=== PATIENT | female | born 1955 | race Caucasian/White ===

== ENCOUNTER 2017-10-03 01:51 | Emergency (ER) | payer MEDICARE, SELFPAY ==
[2017-10-03 01:52] VITALS: BP 173/94; PULSE 85; RESP 17; TEMP 36.9; O2SAT 96; BMI 35.5
[2017-10-03] MEDS: Ondansetron 4 MG/2 ML Vial IV (02:27)
[2017-10-03] MEDS: 0.9% Normal Saline 1,000 ML 1000 ML IV (02:27)
[2017-10-03] MEDS: Dicyclomine 10 MG Capsule 20 MG PO (02:32)
[2017-10-03] MEDS: Loperamide 2 MG Capsule 4 MG PO (02:32)
--- NOTE | 2017-10-03 05:35 | ED.DCSUM_ITS ---
- ER Visit Summary Date of Service: 10/03/17 Chief Complaint: Generalized abdominal pain with nausea, vomiting diarrhea. History of Present Illness: The patient is a 62 F patient states abdominal pain started at approximately 1530. At approximately 1600 she had loose watery stool without blood or mucus. She states she had 4 loose stools prior to presentation. At approximately 1800 she had first episode of vomiting and has vomited 6 times prior to presentation. There was no blood or coffee grounds noted. There are no ill contacts. She has not been antibiotics recently. She has no history of any significant bowel problems. She denies fever, chills night sweats. Denies weight gain or weight loss. She denies any visual, ocular or auditory symptoms. She has no cardiovascular or respiratory symptoms. She denies any symptoms. She denies rash or any skin lesions. She denies myalgias arthralgias. She does combine of generalized weakness. Denies headache, paresthesia, anesthesia or motor weakness. She denies any swelling or discomfort of her extremities. Physical Examination: Patient blood pressure is 173/94. She appears pale. HEENT exam is remarkable dry mucosa otherwise negative. Please read written notes. Heart is regular without murmur, gallop or rub. S1 and S2 are normal. Lungs are clear to auscultation with good movement of air bilaterally. Abdomen is soft nontender with no palpable semester no bruit. There is no hepatosplenomegaly. There is no CVA tenderness. Lower extremity exam reveals no asymmetry, discoloration or leg vein distention. Neurologic exam is nonfocal. Test Results: Since symptoms started hours before presentation lab tests were not obtained. Emergency Department Course and Treatment: IV was established and she received 2 L of normal saline wide open. She initially was treated with Zofran. She reported no improvement. Reglan was ordered and I was informed that the pharmacy has no Reglan. She was treated with promethazine. First attempt at p.o. challenge resulted in nausea and vomiting of the Imodium and Bentyl tablets she was given. She has since passed p.o. challenge and was reassessed at 0530. She states she feels better the nausea has resolved. Treatment Plan: Appropriate home-going instructions and symptomatic care/ treatment. Disposition: Discharged to home with daughter Impression: Abdominal pain with nausea, vomiting diarrhea Mild dehydration This note was generated with [employer] dictation software. It may contain incorrect words, spelling, and punctuation that were not noted in review of the chart prior to signing ED Disposition - Plan for ED Patient: Disposition: Home or Assisted Living Chief Complaint: Nausea/Vomiting/Diarrhea Instructions: ED Vomiting Diarrhea Nonspecific Ad Referrals: Nisa Jolley MD [Primary Care Provider] - As Needed
[2017-10-03 05:43] VITALS: BP 169/69; PULSE 86; RESP 16; O2SAT 94
== END 2017-10-03 05:44 | disposition home or self-care (01) ==
PROVIDERS: Emergency Provider Emergency Medicine; Family Provider Internal Medicine; PCP Internal Medicine
DX: R10.9 Unspecified abdominal pain (principal); R11.2 Nausea with vomiting, unspecified; R19.7 Diarrhea, unspecified; E86.0 Dehydration; R53.1 Weakness; K21.9 Gastro-esophageal reflux disease without esophagitis; J44.9 Chronic obstructive pulmonary disease, unspecified; F32.9 Major depressive disorder, single episode, unspecified
CPT/HCPCS: 96361; 96374; 96375; 99285; J7030; J7040; A4216; J2405

== ENCOUNTER → 2018-04-01 08:47 | Outpatient (CLI) | payer MEDICARE, SELFPAY | PROVIDERS: Family Provider Internal Medicine; PCP Internal Medicine; Visit Provider Orthopaedic Surgery | DX: M54.5 Low back pain (principal) | CPT/HCPCS: 72110 ==

== ENCOUNTER 2018-04-21 10:48 | Day surgery (SDC) | payer MEDICARE, SELFPAY ==
[2018-04-21 11:02] VITALS: BP 134/71; PULSE 85; RESP 18; TEMP 35.7; O2SAT 96; BMI 34.1
[2018-04-21] MEDS: MethylPREDNISolone Acetate 80 MG/ML Vial (12:04)
[2018-04-21] MEDS: Bupivacaine 0.5% PF 10 ML VIAL (12:04)
--- NOTE | 2018-04-21 12:05 | RAD_ITS ---
STUDY: BILATERAL SACROILIAC JOINT INJECTION. REASON FOR EXAM: Female, 62 years old. Chronic low back pain. FLUOROSCOPY TIME (if supplied): (0:17) minutes/seconds. 2 cone down intraoperative views were obtained. TECHNIQUE: The pain management physician performed lateral sacroiliac joint injections. COMPARISON: None. FINDINGS: The needle is seen in the right and left sacroiliac joints. RAD/S-I Jts 3 or More Views IMPRESSION: Imaging provided for bilateral sacroiliac joint injections. Electronically Signed: Porfirio Gurrola MD at 10:28 EDT Tel [phone], Service support ,
[2018-04-21 12:19] VITALS: BP 111/74; BP 134/71; PULSE 74; RESP 16; TEMP 36.5; O2SAT 96
[2018-04-21 12:25] VITALS: BP 117/79; BP 134/71; PULSE 67; RESP 16; O2SAT 96
[2018-04-21 12:42] VITALS: BP 124/81; BP 134/71; PULSE 71; RESP 16; TEMP 36.4; O2SAT 97
[2018-04-21 13:04] VITALS: BP 134/71
--- NOTE | 2018-04-21 15:23 | PCM.OPRPT ---
Problem List (1) Sacrococcygeal disorders, not elsewhere classified Status: Chronic (2) Bilateral sacroiliitis Status: Chronic Report of Operation Date of Procedure: 04/21/18 Pre-Operative Diagnosis: Sacroiliitis, sacroiliac joint dysfunction Post-Operative Diagnosis: Sacroiliitis, sacroiliac joint dysfunction Surgery/Procedure Performed:: Bilateral sacroiliac joint steroid injection under fluoroscopic guidance Description of Surgical Findings:: PROCEDURE: Bilateral sacroiliac joint steroid injection under fluoroscopic guidance PREOPERATIVE DIAGNOSIS: Sacroiliitis, sacroiliac joint dysfunction POSTOPERATIVE DIAGNOSIS: Sacroiliitis, sacroiliac joint dysfunction ANESTHESIA: MAC COMPLICATIONS: None BLOOD LOSS: Minimal PROCEDURE IN DETAIL: History and physical today was reviewed. Risks and benefits of the procedure were explained. The patient understood, agreed to our procedure, and informed consent was obtained. IV inserted per routine protocol. The patient was taken to the operating room, placed in a prone position with a pillow positioned underneath the abdomen. The lower back and tailbone area was prepped and draped in a sterile fashion using iodine ?3 under fluoroscopy guidance on the AP as well as oblique view bilateral sacroiliac joints are visualized the skin and subcutaneous tissue and size approximately 5 cc of 1% lidocaine using a 25-gauge regular needle under direct visualization with fluoroscopy starting on the left SI ending on the right SI using a 22-gauge 3 and half inch spinal needle the needle passed through the skin the tip of the needle's maneuver and directed towards the inferior one third of the posterior SI joint once the tip of the needle was at the vicinity of the joint after negative aspiration for blood or CSF a total of 1 cc of contrast was injected in divided doses between both levels to confirm correct placement of the needle as well as cephalocaudad spread confirmation was obtained on AP as well as oblique view after repeated negative aspiration a total of 8 cc of preservative-free 0.25% Marcaine with 80 mg of Depo-Medrol were injected in divided doses between both levels. The needles were then removed intact. The patient experienced no signs or symptoms intrathecal, intravascular injection. The patient experienced no paraesthesia. The procedure was completed without any apparent difficult, any complication. The patient appeared to tolerate well. ASSESSMENT AND PLAN: This is a 62-year-old female with sacroiliitis SI joint dysfunction status post bilateral sacroiliac joint steroid injection under fluoroscopic guidance. The patient will continue her current medications. The patient will follow in approximately 2 weeks for possible repeat of the procedure if indicated.
== END 2018-04-21 13:05 | disposition home or self-care (01) ==
LOC: SDC 10:48 → AC 10:50
PROVIDERS: Family Provider Internal Medicine; PCP Internal Medicine; Visit Provider Anesthesiology Pain Medicine
PROC: 3E0U3BZ Introduction of Anesthetic Agent into Joints, Percutaneous Approach (ICD-10-PCS; CPT 64451; principal; 2018-04-21 12:00)
DX: M46.1 Sacroiliitis, not elsewhere classified (principal)
CPT/HCPCS: 62323; 64483; 72202; J7120; J3490

== ENCOUNTER 2018-06-05 14:00 | Outpatient (RCR) | payer MEDICARE, SELFPAY ==
--- NOTE | 2018-05-09 07:53 | HP.PTEVAL ---
Patient's Visit Information NAMAN WAHL is a 62 year old F referred to Physical Therapy by Thiago Youssef MD with a diagnosis of LUMBAR DDD,SI DYSFUNCTION. Date of Evaluation: 05/09/18 Physical Therapist: Nasir Moses PT, - Visit Plan Frequency: 2x /Week Duration: 4 Weeks Plan: Aquatic PT lumbar ROM ,strength ,postural ex's LE strengthening/flexablity - Subjective Subjective: This 62 y/o female presents physica therapy lumbar pain and SI dysfunction for about one year. Patient was at PT for land which made symptoms worse. Pateint seen pain management had injections made symptoms better 2weeks ago. Location symmtrical SI and had radicular syptoms in legs.Symptoms worse with walking ,sitting ,standing Symptoms better with recliner ,injections.Denies parathesia/tingling. Bowel/bladder -. Patient sleeping okay at night. Patient symptoms affect QOL and ADL'S and housework tasks. 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 SOCAIL: disablity. VOCTATION: - Pain Bilateral Back Pain Intensity (Out of 10): 0 Pain Intensity Range: 10 - Objective POSTURE: mild foward posture,knee valgus. GAIT: mild foward posture reciprocal pattern. NEURO: denies parathesia/ingling,reflexes L3-4,L4-5,L5--S1 1/3. PALAPTION: tender SI. ALIGN: symmtrical. MMT: quads/hams/hip 4-/5,ankle 4/5. LUMBAR ROM: flexion min/mod loss,extension mod loss ,side glides min/mod loss. FLEXABLITY: hams min loss - Special Tests L/S Slump test left side: Negative L/S Slump test right side: Negative L/S Left Straight Leg Raise: Negative L/S Right Straight Leg Raise: Negative Lumbar Standing: Flexion - Mechanical Response: No effect Lumbar Standing: Flexion - Symptoms During Testing: Increases Lumbar Standing: Flexion - Symptoms After Testing: No worse Lumbar Standing: Extension - Mechanical Response: No effect Lumbar Standing: Extension - Symptoms After Testing: No worse Lumbar Standing: Right Side Glides - Mechanical Response: No effect Lumbar Standing: Right Side [place] - Symptoms During Testing: No effect Lumbar Standing: Right Side [place] - Symptoms After Testing: No effect Lumbar Standing: Left Side [place] - Mechanical Response: No effect Lumbar Standing: Left Side [place] - Symptoms During Testing: No effect Lumbar Standing: Left Side [place] - Symptoms After Testing: No effect - Goals Goal 1:: Independant with Aquatic PT Goal Time Frame: 4-6 Weeks Goal 2:: Independant with posture for ADL'S Goal Time Frame: 4-6 Weeks Goal 3:: Patient decrease lumbar and SI pain by 50% r greater to improve function. Goal Time Frame: 4-6 Weeks Goal 4:: This to improve back owsetry by 5-7 points to improve QOL Goal Time Frame: 4-6 Weeks Goal 5:: Patient to improve ablity to perform ADL'S and housework task with min limiations Goal Time Frame: 4-6 Weeks - Rehabilitation Potential Physical Therapy Diagnosis: This patient has SI joint and lumbar pain which impairs ADL'S and light housework tasks with strength,pain and functionas well as comorbities thus benifit from skilled PT Rehabilitation Potential: Good - Anticipated Interventions Thank you for the opportunity to evaluate your patient. For Medicare and Medicare HMO plans, please review the plan of care and approve it. It will need to be FAXED BACK to us at [phone] for Medicare purposes. Please let me know if there are questions or concerns regarding this plan of care. Physician Signature: Date:
--- NOTE | 2018-05-09 08:00 | HP.PTEVAL_ITS ---
Patient's Visit Information NAMAN WAHL is a 62 year old F referred to Physical Therapy by Thiago Youssef MD with a diagnosis of LUMBAR DDD,SI DYSFUNCTION. Date of Evaluation: 05/09/18 Physical Therapist: Nasir Moses PT, - Visit Plan Frequency: 2x /Week Duration: 4 Weeks Plan: Aquatic PT lumbar ROM ,strength ,postural ex's LE strengthening/flexablity - Subjective Subjective: This 62 y/o female presents physica therapy lumbar pain and SI dysfunction for about one year. Patient was at PT for land which made symptoms worse. Pateint seen pain management had injections made symptoms better 2weeks ago. Location symmtrical SI and had radicular syptoms in legs.Symptoms worse with walking ,sitting ,standing Symptoms better with recliner ,injections.Denies parathesia/tingling. Bowel/bladder -. Patient sleeping okay at night. Patient symptoms affect QOL and ADL'S and housework tasks. 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 SOCAIL: disablity. VOCTATION: - Pain Bilateral Back Pain Intensity (Out of 10): 0 Pain Intensity Range: 10 - Objective POSTURE: mild foward posture,knee valgus. GAIT: mild foward posture reciprocal pattern. NEURO: denies parathesia/ingling,reflexes L3-4,L4-5,L5--S1 1/3. PALAPTION: tender SI. ALIGN: symmtrical. MMT: quads/hams/hip 4-/5,ankle 4/5. LUMBAR ROM: flexion min/mod loss,extension mod loss ,side glides min/mod loss. FLEXABLITY: hams min loss - Special Tests L/S Slump test left side: Negative L/S Slump test right side: Negative L/S Left Straight Leg Raise: Negative L/S Right Straight Leg Raise: Negative Lumbar Standing: Flexion - Mechanical Response: No effect Lumbar Standing: Flexion - Symptoms During Testing: Increases Lumbar Standing: Flexion - Symptoms After Testing: No worse Lumbar Standing: Extension - Mechanical Response: No effect Lumbar Standing: Extension - Symptoms After Testing: No worse Lumbar Standing: Right Side Glides - Mechanical Response: No effect Lumbar Standing: Right Side [place] - Symptoms During Testing: No effect Lumbar Standing: Right Side [place] - Symptoms After Testing: No effect Lumbar Standing: Left Side [place] - Mechanical Response: No effect Lumbar Standing: Left Side [place] - Symptoms During Testing: No effect Lumbar Standing: Left Side [place] - Symptoms After Testing: No effect - Goals Goal 1:: Independant with Aquatic PT Goal Time Frame: 4-6 Weeks Goal 2:: Independant with posture for ADL'S Goal Time Frame: 4-6 Weeks Goal 3:: Patient decrease lumbar and SI pain by 50% r greater to improve function. Goal Time Frame: 4-6 Weeks Goal 4:: This to improve back owsetry by 5-7 points to improve QOL Goal Time Frame: 4-6 Weeks Goal 5:: Patient to improve ablity to perform ADL'S and housework task with min limiations Goal Time Frame: 4-6 Weeks - Rehabilitation Potential Physical Therapy Diagnosis: This patient has SI joint and lumbar pain which impairs ADL'S and light housework tasks with strength,pain and functionas well as comorbities thus benifit from skilled PT Rehabilitation Potential: Good - Anticipated Interventions Patient/Client Instruction: Educate patient on: Condition For the Purpose of:: To decrease pain, To increase ROM, To improve muscle performance and motor function, To improve ability to perform ADL's, To increase tolerance to activity/condition/position, To improve performance and independence with ADL's, To improve ability of physical actions for home/community/work/leisure, To improve gait and locomotor functions, To increase flexibility/ROM, To assume or resume ADL's, To reduce risk of recurrence, To improve ability to perform tasks related to life management Therapeutic Exercise to Include: Strength training, Body mechanics, Postural training, Flexibilty training, Dynamic Lumbar Stabilization Comment: BLE For the Purpose of:: To decrease pain, To increase ROM, To improve muscle performance and motor function, To improve ability to perform ADL's, To increase tolerance to activity/condition/position, To improve ability of physical actions for home/community/work/leisure, To improve health of tissue, To decrease soft tissue restriction, To increase flexibility/ROM, To improve endurance, To reduce risk of recurrence, To improve ability to perform tasks related to life management Thank you for the opportunity to evaluate your patient. For Medicare and Medicare HMO plans, please review the plan of care and approve it. It will need to be FAXED BACK to us at [phone] for Medicare purposes. Please let me know if there are questions or concerns regarding this plan of care. Physician Signature: Date:
== END 2018-06-05 19:00 | disposition home or self-care (01) ==
LOC: PT 14:00
PROVIDERS: Family Provider Internal Medicine; PCP Internal Medicine; Referring Provider Anesthesiology Pain Medicine; Visit Provider Anesthesiology Pain Medicine
DX: M51.36 Other intervertebral disc degeneration, lumbar region (principal); M53.3 Sacrococcygeal disorders, not elsewhere classified
CPT/HCPCS: 97113; 97162

== ENCOUNTER 2018-09-08 07:41 | Day surgery (SDC) | payer MEDICARE, SELFPAY ==
[2018-09-08 07:59] VITALS: BP 117/73; PULSE 84; RESP 18; TEMP 36.4; O2SAT 94; BMI 35.0
[2018-09-08] MEDS: Bupivacaine 0.25% 30 ML Vial (09:03)
[2018-09-08] MEDS: MethylPREDNISolone Acetate 80 MG/ML Vial (09:03)
--- NOTE | 2018-09-08 09:10 | RAD_ITS ---
STUDY: X-RAY - SACRUM/COCCYX REASON FOR EXAM: Female, 63 years old. Bilateral SI joint injections. TECHNIQUE: 2 intraoperative view(s) of the sacrum and coccyx were obtained. COMPARISON: None. FINDINGS: Imaging provided for bilateral sacroiliac joint injections. Contrast is seen at that level. RAD/Sacrum-Coccyx min 2 Views IMPRESSION: Imaging provided for bilateral sacroiliac joint injection. Electronically Signed: Porfirio Gurrola MD at 9:20 EST , Service support ,
[2018-09-08 09:15] VITALS: BP 111/68; BP 117/73; PULSE 75; RESP 16; TEMP 36.5; O2SAT 95
[2018-09-08 09:20] VITALS: BP 110/69; BP 117/73; PULSE 74; RESP 16; O2SAT 96
[2018-09-08 09:25] VITALS: BP 105/68; BP 117/73; PULSE 75; RESP 16; O2SAT 97
[2018-09-08 09:28] VITALS: BP 111/71; BP 117/73; PULSE 76; RESP 16; TEMP 36.4; O2SAT 96
[2018-09-08 09:35] VITALS: BP 117/73
--- NOTE | 2018-09-08 11:53 | OP.PCM_ITS ---
Problem List (1) Bilateral sacroiliitis Status: Chronic (2) Sacrococcygeal disorders, not elsewhere classified Status: Chronic Report of Operation Date of Procedure: 09/08/18 Pre-Operative Diagnosis: Sacroiliitis, SI joint dysfunction Post-Operative Diagnosis: Sacroiliitis, SI joint dysfunction Surgery/Procedure Performed:: Bilateral sacroiliac joint steroid injection under fluoroscopic guidance Description of Surgical Findings:: PROCEDURE: Bilateral sacroiliac joint steroid injection under fluoroscopic guidance PREOPERATIVE DIAGNOSIS: Sacroiliitis, sacroiliac joint dysfunction POSTOPERATIVE DIAGNOSIS: Sacroiliitis, sacroiliac joint dysfunction ANESTHESIA: MAC COMPLICATIONS: None BLOOD LOSS: Minimal PROCEDURE IN DETAIL: History and physical today was reviewed. Risks and benefits of the procedure were explained. The patient understood, agreed to our procedure, and informed consent was obtained. IV inserted per routine protocol. The patient was taken to the operating room, placed in a prone position with a pillow positioned underneath the abdomen. The lower back and tailbone area was prepped and draped in a sterile fashion using iodine ?3 under fluoroscopy guidance on the AP as well as oblique view bilateral sacroiliac joints are visualized the skin and subcutaneous tissue and size approximately 5 cc of 1% lidocaine using a 25-gauge regular needle under direct visualization with fluoroscopy starting on the left SI ending on the right SI using a 22-gauge 3 and half inch spinal needle the needle passed through the sk in the tip of the needle's maneuver and directed towards the inferior one third of the posterior SI joint once the tip of the needle was at the vicinity of the joint after negative aspiration for blood or CSF a total of 1 cc of contrast was injected in divided doses between both levels to confirm correct placement of the needle as well as cephalocaudad spread confirmation was obtained on AP as well as oblique view after repeated negative aspiration a total of 8 cc of preservative-free 0.25% Marcaine with 80 mg of Depo-Medrol were injected in divided doses between both levels. The needles were then removed intact. The patient experienced no signs or symptoms intrathecal, intravascular injection. The patient experienced no paraesthesia. The procedure was completed without any apparent difficult, any complication. The patient appeared to tolerate well. ASSESSMENT AND PLAN: This is a 63-year-old female with sacroiliitis SI joint dysfunction status post bilateral sacroiliac joint steroid injection under fluoroscopic guidance. The patient will continue her current medications. The patient will follow in approximately 2 weeks for reevaluation
== END 2018-09-08 09:46 | disposition home or self-care (01) ==
LOC: SDC 07:42 → AC 07:43
PROVIDERS: Family Provider Internal Medicine; PCP Internal Medicine; Referring Provider Anesthesiology Pain Medicine; Visit Provider Anesthesiology Pain Medicine
PROC: 3E0U3BZ Introduction of Anesthetic Agent into Joints, Percutaneous Approach (ICD-10-PCS; CPT 64451; principal; 2018-09-08 09:05)
DX: M46.1 Sacroiliitis, not elsewhere classified (principal); M79.7 Fibromyalgia; M51.36 Other intervertebral disc degeneration, lumbar region; M43.16 Spondylolisthesis, lumbar region; M54.17 Radiculopathy, lumbosacral region; M54.5 Low back pain; M53.3 Sacrococcygeal disorders, not elsewhere classified; M54.16 Radiculopathy, lumbar region; M46.96 Unspecified inflammatory spondylopathy, lumbar region; Z79.891 Long term (current) use of opiate analgesic; J45.909 Unspecified asthma, uncomplicated
CPT/HCPCS: 01992; 27096; 64483; 72220; J7120

== ENCOUNTER 2019-04-20 09:27 | Day surgery (SDC) | payer MEDICARE, SELFPAY ==
[2019-04-20 10:13] VITALS: BP 138/73; PULSE 79; RESP 14; TEMP 36.6; O2SAT 97; BMI 34.2
[2019-04-20] MEDS: Lactated Ringers 1,000 ML 100 ML IV (10:41)
--- NOTE | 2019-04-20 11:00 | RAD_ITS ---
STUDY: X-RAY - SACROILIAC JOINTS REASON FOR EXAM: Female, 63 years old. Right SI joint injection. Pain. TECHNIQUE: A single intraoperative view(s) of the sacroiliac joints were obtained. COMPARISON: None. FINDINGS: Image demonstrates a needle in the right sacroiliac joint. There is contrast within the joint space. Please refer to the procedure report for further details. RAD/Fluoro Guided Needle Placement IMPRESSION: Right SI joint injection in the OR. Electronically Signed: Nehemiah Nathan DO at 18:14 EDT Tel [phone], Service support ,
--- NOTE | 2019-04-20 11:00 | RAD_ITS ---
STUDY: X-RAY - SACROILIAC JOINTS REASON FOR EXAM: Female, 63 years old. Left SI joint injection. Pain. TECHNIQUE: A single intraoperative view(s) of the sacroiliac joints were obtained. COMPARISON: None. FINDINGS: The image demonstrates a needle in the lower left sacroiliac joint. Contrast is seen within the joint space. Please refer to the operative report for further details. RAD/Fluoro Guided Needle Placement IMPRESSION: Injection of left sacroiliac joint the OR. Electronically Signed: Nehemiah Nathan DO at 18:13 EDT Tel [phone], Service support ,
[2019-04-20] MEDS: MethylPREDNISolone Acetate 80 MG/ML Vial (11:16)
[2019-04-20] MEDS: Bupivacaine 0.25% 30 ML Vial (11:16)
[2019-04-20 11:22] VITALS: BP 113/71; BP 138/73; PULSE 72; RESP 14; TEMP 36.9; O2SAT 97
[2019-04-20 11:25] VITALS: BP 116/81; BP 138/73; PULSE 71; RESP 16; O2SAT 98
[2019-04-20 11:30] VITALS: BP 122/64; BP 138/73; PULSE 69; RESP 16; O2SAT 97
[2019-04-20 11:51] VITALS: BP 133/81; BP 138/73; PULSE 70; RESP 16; TEMP 36.7; O2SAT 98
[2019-04-20 12:12] VITALS: BP 138/73
--- NOTE | 2019-04-20 13:17 | OP.PCM_ITS ---
Problem List (1) Bilateral sacroiliitis Status: Chronic (2) Sacrococcygeal disorders, not elsewhere classified Status: Chronic Report of Operation Date of Procedure: 04/20/19 Description of Surgical Findings:: PROCEDURE: Bilateral sacroiliac joint steroid injection under fluoroscopic guidance PREOPERATIVE DIAGNOSIS: Sacroiliitis, sacroiliac joint dysfunction POSTOPERATIVE DIAGNOSIS: Sacroiliitis, sacroiliac joint dysfunction ANESTHESIA: MAC COMPLICATIONS: None BLOOD LOSS: Minimal PROCEDURE IN DETAIL: History and physical today was reviewed. Risks and benefits of the procedure were explained. The patient understood, agreed to our procedure, and informed consent was obtained. IV inserted per routine protocol. The patient was taken to the operating room, placed in a prone position with a pillow positioned underneath the abdomen. The lower back and tailbone area was prepped and draped in a sterile fashion using iodine ?3 under fluoroscopy guidance on the AP as well as oblique view bilateral sacroiliac joints are visualized the skin and subcutaneous tissue and size approximately 5 cc of 1% lidocaine using a 25-gauge regular needle under direct visualization with fluoroscopy starting on the left SI ending on the right SI using a 22-gauge 3 and half inch spinal needle the needle passed through the skin the tip of the needle's maneuver and directed towards the inferior one third of the posterior SI joint once the tip of the needle was at the vicinity of the joint after negative aspiration for blood or CSF a total of 1 cc of contrast was injected in divided doses between both levels to confirm correct placement of the needle as well as cephalocaudad spread confirmation was obtained on AP as well as oblique view after repeated negative aspiration a total of 8 cc of preservative-free 0.25% Marcaine with 80 mg of Depo-Medrol were injected in divided doses between both levels. The needles were then removed intact. The patient experienced no signs or symptoms intrathecal, intravascular inject ion. The patient experienced no paraesthesia. The procedure was completed without any apparent difficult, any complication. The patient appeared to tolerate well. ASSESSMENT AND PLAN: This is a 63-year-old female with sacroiliitis SI joint dysfunction status post bilateral sacroiliac joint steroid injection under fluoroscopic guidance. The patient will continue her current medications. The patient will follow in approximately 2 weeks for reevaluation
== END 2019-04-20 12:29 | disposition home or self-care (01) ==
LOC: SDC 09:28 → AC 10:04
PROVIDERS: Family Provider Internal Medicine; PCP Internal Medicine; Referring Provider Anesthesiology Pain Medicine; Visit Provider Anesthesiology Pain Medicine
PROC: 3E0U3BZ Introduction of Anesthetic Agent into Joints, Percutaneous Approach (ICD-10-PCS; CPT 64451; principal; 2019-04-20 10:55)
DX: M46.1 Sacroiliitis, not elsewhere classified (principal); M48.061 Spinal stenosis, lumbar region without neurogenic claudication; M51.36 Other intervertebral disc degeneration, lumbar region; M43.16 Spondylolisthesis, lumbar region; M51.17 Intervertebral disc disorders with radiculopathy, lumbosacral region; M46.96 Unspecified inflammatory spondylopathy, lumbar region; M19.90 Unspecified osteoarthritis, unspecified site; M79.7 Fibromyalgia; J45.909 Unspecified asthma, uncomplicated; G47.30 Sleep apnea, unspecified; G25.81 Restless legs syndrome; K44.9 Diaphragmatic hernia without obstruction or gangrene; K21.9 Gastro-esophageal reflux disease without esophagitis; F41.9 Anxiety disorder, unspecified; F32.9 Major depressive disorder, single episode, unspecified; Z86.2 Personal history of diseases of the blood and blood-forming organs and certain disorders involving the immune mechanism; Z78.0 Asymptomatic menopausal state; Z79.891 Long term (current) use of opiate analgesic; Z79.899 Other long term (current) drug therapy
CPT/HCPCS: 27096; 76000; 77002; J7120

== ENCOUNTER 2019-07-06 14:00 | Outpatient (RCR) | payer MEDICARE, SELFPAY ==
--- NOTE | 2019-06-08 15:50 | HP.PTEVAL_ITS ---
Patient's Visit Information NAMAN WAHL is a 63 year old F referred to Physical Therapy by Thiago Youssef MD with a diagnosis of LUMBAR DDD,SI DYSFUNCTION. Date of Evaluation: 06/08/19 Physical Therapist: Nasir Moses PT, Cert MDT, OCS - Visit Plan Frequency: 2x /Week Duration: 5WEEKS Plan: PT INTERVENTIONS AQUATIC PT FOR LUMBAR ROM,DLS,POSTURAL EX'S,LE STRENGTHENING/FLEXABLITY - Subjective Findings: This 63 y/o female presnets to pysical therapy with lumbar and SI pain. Patient has lumbar pain for many years. Patient symptoms decsribed as ache symmtrical lumbar radiaties to lateral hips anterior thighs -knees Aggravating factors 10 mins ,walking < 10mins does use walker for extended distances,bending,lifting. Alleviating factors sitting,resting. Patientdenies parathesia/tingling. Bowel/bladder-. Coughing/sneezing -. pain has restless legs affects sleeping. Patient seen pain management has epidural injections ,most recent SI bilateral injections. No recent diagnostics. Patient pain affects ability to perform ADLS' thus requires,assist with bath per spouse ,. Patient Aide 3xday /week 3 hrs /day for cleaning. Patient has comorbities bilateral TSR and TKR's,fibromayalgia,pshyosocial -anxiety/depression. Patient condtion affects QOL and function. SOCAIL: . VOCATION: disablity - Pain Bilateral Back Pain Intensity (Out of 10): 2 Pain Intensity Range: 10 Bilateral Lower Extremity Pain Intensity (Out of 10): 2 Pain Intensity Range: 10 - Objective POSTURE: mild posture ,bilateral knee valgus. GAIT: reciprocal pattern antalgic gait,knee valgus. NEURO: intact L3-4,L4-5,L5-S1 1/3. PALAPTION: tender SI. AROM:right 0-105 ~ supine knee flexion, left 0-120 ~supine knee flexion. MMT: quads/hams 4-/5,hip flexion 3+/5, hip abd 3+/5,ankle 4/5. LUMBAR ROM: flexion mod loss ,extension mod/sever loss,side glides mod loss - Special Tests L/S Slump test left side: Negative L/S Slump test right side: Negative L/S Left Straight Leg Raise: Negative L/S Right Straight Leg Raise: Negative - Goals Goal 1:: Patient to be independant with HEP Goal Time Frame: 4-6 Weeks Goal 2:: Independant with posture for ADL'S Goal Time Frame: 4-6 Weeks Goal 3:: Patient to decrease lumbar pain by 50% or > to improve QOL. Goal Time Frame: 4-6 Weeks Goal 4:: Patient increase lumbar ROM for function of recovery Goal Time Frame: 4-6 Weeks Goal 5:: Pateint increase strength BLE by 1/2 grade to improve funnction. Goal Time Frame: 4-6 Weeks Goal 6:: Patient to improve back owestry score by 5 points or> to improve QOL. Goal Time Frame: 4-6 Weeks - Rehabilitation Potential Physical Therapy Diagnosis: This 63y/o female presents to physical therapy with lumbar pain/SI pain with decrease ROM for function,decrease LE strength ,impairs gait and requires assistance for ADL's Rehabilitation Potential: Good - Anticipated Interventions Patient/Client Instruction: Educate patient on: Condition, Plan of Care For the Purpose of:: To decrease pain, To increase ROM, To improve muscle performance and motor function, To improve ability to perform ADL's, To increase tolerance to activity/condition/position, To improve performance and independence with ADL's, To improve ability of physical actions for home/community/work/leisure, To improve health of tissue, To decrease soft tissue restriction, To increase flexibility/ROM, To improve ability to perform tasks related to life management Therapeutic Exercise to Include: Strength training, Postural training, Flexibi lty training, In an aquatic setting For the Purpose of:: To decrease pain, To increase ROM, To improve muscle performance and motor function, To improve ability to perform ADL's, To increase tolerance to activity/condition/position, To improve ability of physical actions for home/community/work/leisure, To improve health of tissue, To decrease soft tissue restriction, To increase flexibility/ROM, To reduce risk of recurrence Thank you for the opportunity to evaluate your patient. For Medicare and Medicare HMO plans, please review the plan of care and approve it. It will need to be FAXED BACK to us at [phone] for Medicare purposes. For Medicare only, by signing this I certify the plan of care. Please let me know if there are questions or concerns regarding this plan of care. Physician Signature: Date:
--- NOTE | 2019-09-25 13:31 | HP.PT.NRP ---
HP - Discharge Summary (1) - Patient Information NAMAN WAHL was seen in my office for initial evaluation on 06/08/19. The following Plan of Care was established for this patient: Initial Frequency: 2x /Week Initial Duration: 5WEEKS - Anticipated Interventions Patient/Client Instruction: Educate patient on: Condition, Plan of Care For the Purpose of:: To decrease pain, To increase ROM, To improve muscle performance and motor function, To improve ability to perform ADL's, To increase tolerance to activity/condition/position, To improve performance and independence with ADL's, To improve ability of physical actions for home/community/work/leisure, To improve health of tissue, To decrease soft tissue restriction, To increase flexibility/ROM, To improve ability to perform tasks related to life management Therapeutic Exercise to Include: Strength training, Postural training, Flexibilty training, In an aquatic setting For the Purpose of:: To decrease pain, To increase ROM, To improve muscle performance and motor function, To improve ability to perform ADL's, To increase tolerance to activity/condition/position, To improve ability of physical actions for home/community/work/leisure, To improve health of tissue, To decrease soft tissue restriction, To increase flexibility/ROM, To reduce risk of recurrence This patient was last seen in our office 07/06/19. Pertinent comments regarding their Physical therapy will appear below: Patient seen for PT for Lumbar pain with tx focusing on Aquatic Therapy for DLS,abd/back,postural ex's ,LE flexablity and strengrhening. At this point I will be discontinuing this patient from physical therapy. I would be happy to see this patient again in the future if found appropriate by the physician. Thank you! Nasir Moses, PT, Cert MDT, OCS
== END 2019-07-06 19:00 | disposition home or self-care (01) ==
LOC: PT 14:00
PROVIDERS: Family Provider Internal Medicine; PCP Internal Medicine; Referring Provider Anesthesiology Pain Medicine; Visit Provider Anesthesiology Pain Medicine
DX: M51.36 Other intervertebral disc degeneration, lumbar region (principal); M53.3 Sacrococcygeal disorders, not elsewhere classified
CPT/HCPCS: 97113; 97162

== ENCOUNTER 2019-09-18 13:16 | Emergency (ER) | payer MEDICARE, MEDICAID, SELFPAY ==
[2019-09-18 13:18] VITALS: BP 151/90; PULSE 87; RESP 18; TEMP 36.8; O2SAT 98; BMI 35.2
--- NOTE | 2019-09-18 13:50 | ED.DCSUM_ITS ---
History of Present Illness Chief Complaint: Abd Pain Informant: Patient Narrative: Patient presents with right upper quadrant abdominal pain, she was known to have gallstones however a recent MRCP showed choledocholithiasis. She is sent to the emergency department. She continues to have pain but she has no fever chills cough or congestion. She denies any chest pain, the pain does not radiate to her back. Past Medical History - Allergies and Home Meds Allergies/Adverse Reactions: Allergies No Known Allergies Allergy (Verified 09/18/19 13:18) Primary Care Physician: Nisa Jolley MD [Primary Care Provider] - Past Medical History: - - Fibromyalgia otherwise noncontributory Smoking Status: Never smoker Review of Systems All systems negative except as indicated General: Denies: Fever Cardiovascular: Denies: Chest pain Respiratory: Denies: Dyspnea, Cough Gastrointestinal: Reports: Abdominal pain, Nausea. Denies: Vomiting, Diarrhea Genitourinary: Denies: Dysuria Musculoskeletal: Denies: Myalgias Skin: Denies: Wounds Neurological: Denies: Weakness Psych: Denies: Depression Endocrine: Denies: Polyuria Hematologic: Denies: Easy bruising Allergy: Denies: Swelling of the tongue Physical Exam Vital Signs/Narrative: Vital Signs Temp Pulse Resp BP Pulse Ox 09/18/19 13:18 98.2 F 87 18 151/90 H 98 General: Well nourished, Well developed Head: Normocephalic Eyes: Perrl, EOMI ENT: Moist mucous membranes Neck: Supple Cardiovascular: Regular rate, Regular rhythm Respiratory: No distress, CTA bilaterally Abdomen: Soft, - - Right upper quadrant abdominal pain. She has a negative Ji's. Otherwise her abdomen is nontender in the lower quadrants without any guarding or rebound Back: Nontender, Normal Inspection. Negative for: CVA tenderness Skin: Normal color Neurological: Alert, Normal Strength, Normal Sensation Psychological: Normal affect Diagnostic/Tx/Re-eval - Medical Decision Making Patient has normal LFTs, however I see a MRCP which does show choledocholithiasis, unfortunately I do not have anyone at this facility to do an MRCP at this time, per patient request I will transfer to [facility]. ED Disposition - Plan for ED Patient: Disposition: [facility] Diagnosis: Choledocholithiasis Referrals: Nisa Jolley MD [Primary Care Provider] -
[2019-09-18 13:53] LABS: Absolute Lymphocyte Count 1.46 X10^3/uL (0.83-4.51); Absolute Neutrophil Count 3.6 X10^3/uL (2.0-7.7); Basophil# 0.04 X10^3/uL; Basophil% 0.7 % (0-1); Eosinophil# 0.12 X10^3/uL; Eosinophils% 2.1 % (0-5); Hematocrit 36.8 % (37-47); Hemoglobin 12.1 g/dL (12.0-15.0); Lymphocyte # 1.46 X10^3/ul (4.0); Mean Corp Hgb Conc 32.9 g/dL (32-36); Mean Corpuscular Hgb 27.4 pg (27.0-32.0); Mean Corpuscular Volume 83.3 fL (81-99); Mean Platelet Vol. 10.6 fl (6.2-12.0); Monocyte# 0.61 X10^3/uL; Monocyte% 10.4 % (0-10); NRBC Flagged by Analyzer 0 % (0-5); Neutrophil # 3.61 X10^3/uL (2.7-7.7); Neutrophil % 61.6 % (47-70); Platelet Count 217 K/mm3 (150-450); RBC Distribution Width SD 42.7 fl (35.1-43.9); Red Blood Count 4.42 M/mm3 (4.2-5.4); White Blood Count 5.9 K/mm3 (4.4-11.0)
[2019-09-18] MEDS: Ondansetron 4 MG/2 ML Vial IV (13:58)
[2019-09-18] MEDS: 0.9% Normal Saline 1,000 ML 125 ML IV (13:58)
[2019-09-18] MEDS: Morphine 4 MG/ML Syringe IV (13:59)
[2019-09-18 14:01] VITALS: BP 128/84; PULSE 82; RESP 17; O2SAT 97
[2019-09-18 14:07] LABS: AST(SGOT) 23 U/L (15-37); Alanine Aminotransfer ALT/SGPT 39 U/L (13-56); Albumin, Serum 3.8 g/dL (3.2-5.0); Alkaline Phosphatase 140 U/L (45-117); Anion Gap 4 (5-15); BUN 15 mg/dL (7-18); BUN/Creat Ratio 18.1 RATIO (10-20); Bilirubin, Direct 0.13 mg/dL (0.00-0.30); Calcium,Total 9.1 mg/dL (8.5-10.1); Chloride 109 mmol/L (98-107); Creatinine, Serum 0.83 mg/dL (0.55-1.02); EST Glomerular Filtration Rate 74 mL/min (>60); Est Glom Filt Rate - Afr Amer 90 mL/min (>60); Estimated Creatinine Clearance 55.58 ml/min; Globulin 3.7 g/dL (2.2-4.2); Glucose 90 mg/dL (74-106); Lipase 107 U/L (73-393); Potassium 3.7 mmol/L (3.5-5.1); Protein, Total 7.5 g/dL (6.4-8.2); Sodium Level 141 mmol/L (136-145)
[2019-09-18 15:41] VITALS: BP 164/87; PULSE 71; RESP 16; O2SAT 96
[2019-09-18 17:06] VITALS: BP 159/83; PULSE 70; RESP 18; O2SAT 98
== END 2019-09-18 17:18 | disposition short-term general hospital (02) ==
PROVIDERS: Emergency Provider Emergency Medicine; PCP Internal Medicine
DX: K80.70 Calculus of gallbladder and bile duct without cholecystitis without obstruction (principal); M79.7 Fibromyalgia
CPT/HCPCS: 80048; 80076; 83690; 85025; 96361; 96374; 96375; 99284; J7030; A4216; J2405

== ENCOUNTER 2020-07-11 10:39 | Day surgery (SDC) | payer MEDICARE, MEDICAID, SELFPAY ==
[2020-07-11 11:01] VITALS: BP 134/88; PULSE 85; RESP 18; TEMP 35.8; O2SAT 98; BMI 37.8
[2020-07-11] MEDS: Lactated Ringers 1,000 ML 100 ML IV (11:16)
--- NOTE | 2020-07-11 12:00 | RAD_ITS ---
PROCEDURE: Sacroiliac joint injection. DATE OF EXAMINATION: 07/11/2020. INDICATION: Female, 65 years old. Low back pain. FLUOROSCOPY TIME (if supplied): (17 seconds) minutes/seconds. 2 images were obtained. Intraoperative imaging provided for left sacroiliac joint injection. RAD/Fluoro Guided Needle Placement IMPRESSION: Intraoperative imaging provided for left sacroiliac joint injection. Electronically Signed: Porfirio Gurrola, at 15:43 EST , Service support ,
--- NOTE | 2020-07-11 12:00 | RAD_ITS ---
PROCEDURE: Right sacroiliac joint injection. DATE OF EXAMINATION: 07/11/2020. INDICATION: Female, 65 years old. Low back pain. FLUOROSCOPY TIME (if supplied): (17 seconds) minutes/seconds. One image was obtained. Intraoperative imaging provided for right sacroiliac joint injection. RAD/Fluoro Guided Needle Placement IMPRESSION: Intraoperative imaging provided for right sacroiliac joint injection. Electronically Signed: Porfirio Gurrola, at 15:40 EST , Service support ,
--- NOTE | 2020-07-11 12:10 | PCM.OPRPT ---
Report of Operation Date of Procedure: 07/11/20 Description of Surgical Findings:: PROCEDURE: Bilateral sacroiliac joint steroid injection under fluoroscopic guidance PREOPERATIVE DIAGNOSIS: Sacroiliitis, sacroiliac joint dysfunction POSTOPERATIVE DIAGNOSIS: Sacroiliitis, sacroiliac joint dysfunction ANESTHESIA: MAC COMPLICATIONS: None BLOOD LOSS: Minimal PROCEDURE IN DETAIL: History and physical today was reviewed. Risks and benefits of the procedure were explained. The patient understood, agreed to our procedure, and informed consent was obtained. IV inserted per routine protocol. The patient was taken to the operating room, placed in a prone position with a pillow positioned underneath the abdomen. The lower back and buttock area was prepped and draped in a sterile fashion using iodine ?3 under fluoroscopy guidance on the AP as well as oblique view bilateral sacroiliac joints are visualized the skin and subcutaneous tissue was anesthetized with approximately 5 cc of 1% lidocaine using a 25-gauge regular needle, under direct visualization with fluoroscopy starting on the left SI ending on the right SI using a 22-gauge 3 and half inch spinal needle the needle passed through the skin the tip of the needle's maneuver and directed towards the inferior one third of the posterior SI joint once the tip of the needle was at the vicinity of the joint after negative aspiration for blood or CSF a total of 2 cc of contrast was injected in divided doses between both levels to confirm correct placement of the needle as well as cephalocaudad spread, confirmation was obtained on AP as well as oblique view after repeated negative aspiration a total of 8 cc of preservative-free 0.25% Marcaine with 80 mg of Depo-Medrol were injected in divided doses between both levels. The needles were then removed intact.The patient experienced no signs or symptoms of intrathecal or intravascular injection. The patient experienced no paraesthesia. The procedure was completed without any apparent difficulty, any complication. The patient appeared to tolerate well. ASSESSMENT AND PLAN: This is a 65-year-old female with sacroiliitis SI joint dysfunction status post bilateral sacroiliac joint steroid injection under fluoroscopic guidance. The patient will continue her current medications. The patient will follow in approximately 2 weeks for reevaluation.
[2020-07-11] MEDS: MethylPREDNISolone Acetate 40 MG/ML Vial IM (12:17)
[2020-07-11] MEDS: Bupivacaine 0.25% 30 ML Vial (12:17)
[2020-07-11] MEDS: Lidocaine 1% (5 ml sdv) 5 ML Vial (12:17)
[2020-07-11 12:25] VITALS: BP 134/88; BP 190/92; PULSE 88; RESP 18; TEMP 36.9; O2SAT 92
[2020-07-11 12:30] VITALS: BP 134/88; BP 144/73; PULSE 82; RESP 18; O2SAT 93
[2020-07-11 12:35] VITALS: BP 134/88; BP 137/88; PULSE 82; RESP 18; O2SAT 92
[2020-07-11 12:40] VITALS: BP 121/59; BP 134/88; PULSE 79; PULSE 89; RESP 18; RESP 20; O2SAT 100
[2020-07-11] MEDS: Ipratropium/Albuterol Sulfate 3 ML AMPUL.NEB INHALATION (12:41)
[2020-07-11 13:20] VITALS: BP 134/88
== END 2020-07-11 13:21 | disposition home or self-care (01) ==
LOC: SDC 10:39 → AC 10:41
PROVIDERS: PCP Internal Medicine; Referring Provider Anesthesiology Pain Medicine; Visit Provider Anesthesiology Pain Medicine
PROC: 3E0U3GC Introduction of Other Therapeutic Substance into Joints, Percutaneous Approach (ICD-10-PCS; CPT 27096; principal; 2020-07-11 11:55)
DX: M46.1 Sacroiliitis, not elsewhere classified (principal); M53.3 Sacrococcygeal disorders, not elsewhere classified; M79.7 Fibromyalgia; J45.909 Unspecified asthma, uncomplicated; M51.36 Other intervertebral disc degeneration, lumbar region; M43.16 Spondylolisthesis, lumbar region; M54.17 Radiculopathy, lumbosacral region; M51.37 Other intervertebral disc degeneration, lumbosacral region; M54.5 Low back pain; M54.16 Radiculopathy, lumbar region; M46.96 Unspecified inflammatory spondylopathy, lumbar region; Z79.891 Long term (current) use of opiate analgesic
CPT/HCPCS: 64451; 76000; 77002; 94640; J7120

== ENCOUNTER 2020-12-30 20:31 | Emergency (ER) | payer MEDICARE, MEDICAID, SELFPAY ==
[2020-12-30 20:41] VITALS: BP 189/119; PULSE 94; RESP 16; TEMP 36.8; O2SAT 95; BMI 36.6
[2020-12-30 20:42] VITALS: BP 189/119; PULSE 94; RESP 16; TEMP 36.8; O2SAT 95
[2020-12-30 23:17] LABS: AST(SGOT) 36 U/L (15-37); Alanine Aminotransfer ALT/SGPT 37 U/L (13-56); Albumin, Serum 3.7 g/dL (3.2-5.0); Alkaline Phosphatase 107 U/L (45-117); Anion Gap 6 (5-15); BUN 15 mg/dL (7-18); BUN/Creat Ratio 19.5 RATIO (10-20); Calcium,Total 8.9 mg/dL (8.5-10.1); Chloride 109 mmol/L (98-107); Creatinine, Serum 0.77 mg/dL (0.55-1.02); EST Glomerular Filtration Rate 80 mL/min (>60); Est Glom Filt Rate - Afr Amer 97 mL/min (>60); Estimated Creatinine Clearance 59.15 ml/min; Globulin 3.8 g/dL (2.2-4.2); Glucose 107 mg/dL (74-106); Lipase 174 U/L (73-393); Protein, Total 7.5 g/dL (6.4-8.2); Sodium Level 139 mmol/L (136-145)
[2020-12-30] MEDS: 0.9% Normal Saline 1,000 ML 1000 ML IV (23:25)
[2020-12-30] MEDS: Ondansetron 4 MG/2 ML Vial IV (23:25)
[2020-12-30 23:30] LABS: Absolute Lymphocyte Count 0.64 X10^3/uL (0.83-4.51); Basophil# 0.02 X10^3/uL; Basophil% 0.2 % (0-1); Eosinophil# 0.18 X10^3/uL; Eosinophils% 2.1 % (0-5); Hematocrit 39.3 % (37-47); Hemoglobin 12.9 g/dL (12.0-15.0); Lymphocyte # 0.64 X10^3/ul (0.83-4.51); Lymphocyte % 7.6 % (19-41); Mean Corp Hgb Conc 32.8 g/dL (32-36); Mean Corpuscular Hgb 27.3 pg (27.0-32.0); Mean Corpuscular Volume 83.1 fL (81-99); Mean Platelet Vol. 10.7 fl (6.2-12.0); Monocyte# 0.53 X10^3/uL; Monocyte% 6.3 % (0-10); NRBC Flagged by Analyzer 0 % (0-5); Neutrophil # 6.96 X10^3/uL (2.7-7.7); Neutrophil % 83.1 % (47-70); Platelet Count 240 K/mm3 (150-450); RBC Distribution Width SD 42.7 fl (35.1-43.9); Red Blood Count 4.73 M/mm3 (4.2-5.4); White Blood Count 8.4 K/mm3 (4.4-11.0)
[2020-12-30 23:55] VITALS: BP 172/87; PULSE 81; RESP 18; O2SAT 98
[2020-12-30 23:57] LABS: Mucous, Urine 0 SEEN /hpf (<or=2+)
[2020-12-30 23:58] LABS: Color, Urine Yellow (Yellow); Glucose, Dipstick Normal (Normal); Ketone-Dipstick 5 mg/dl (Negative); Leukocyte Esterase-Dipstick 500 /ul (Negative); Nitrite-Dipstick Negative (Negative); Occult Blood-Urine 150 /ul (Negative); Protein-Dipstick 30 mg/dl (Negative); Specific Gravity, Urine 1.015 (1.002-1.030); Urine Bilirubin Dipstick Negative (Negative); Urine Clarity Cloudy (Clear); Urine Urobilinogen 4 mg/dl (Normal); Urine pH 6.5 (5.0 - 8.0)
[2020-12-31 00:04] LABS: Amorphous Sediment 2+; Bacteria 4+ /hpf (None Seen); Red Blood Cells-Urine 0-5 SEEN /hpf (0-5); Squamous Epithelial Cells - UA 0-5 SEEN /hpf (5-10); White Blood Cells 25-50 SEEN /hpf (0-5)
[2020-12-31] MEDS: Smz/Tmp Ds Tablet 1 TABLET PO (00:35)
--- NOTE | 2020-12-31 00:36 | EDS_ITS ---
HPI HPI - GI History of Present Illness Chief Complaint: Nausea/Vomiting/Diarrhea Informant: patient Abdominal Pain/Flank Pain Onset: Today Context: Sudden Onset Timing: Continuous Quality: Aching Location: Diffuse Worsened by: Nothing Relieved by: Nothing Nausea/Vomiting/Emesis GI Symptom: Positive for Nausea and Vomiting Onset: Today Quality: Negative for Coffee ground and Hematemesis Diarrhea/Melena/Hematochezia GI Symptom: Positive for Diarrhea; Negative for Melena and Hematochezia Stool Quality: Positive for Loose and Watery Associated Symptoms Associated Symptoms: Negative for Dysuria and Hematuria Narrative Narrative: Patient presents with nausea, vomiting, and diarrhea that began today. Patient states it began this morning. Patient also admits to some mild diffuse abdominal pain. Patient states she is vomiting up stomach contents. Patient denies any hematemesis or coffee-ground emesis. Patient states her diarrhea is loose and watery. Patient denies any melena or hematochezia. Patient describes her abdominal pain as diffuse and aching. Patient states it has been constant. Patient states nothing makes it better or worse. Patient denies any dysuria or hematuria. Patient admits to subjective chills but denies any fevers. [facility] Medical History (Updated 12/31/20 @ 00:[address] Brady Hernández, DO) Asthma Hyperlipemia Home Medications clonazepam 0.5 mg PO QHS 09/16/14 [History Last Taken 09/17/19] omeprazole 20 mg PO DAILY 09/16/14 [History Last Taken 07/11/20] perphenazine 8 mg PO QHS 09/16/14 [History Last Taken 09/17/19] pregabalin [Lyrica] 100 mg PO BID 09/16/14 [History Last Taken 09/18/19] Cholecalciferol (Vitamin D3) [Vitamin D3] 5,000 unit PO DAILY 09/18/19 [History Last Taken 09/17/19] sertraline 100 mg PO DAILY 09/18/19 [History Last Taken 09/17/19] cyclobenzaprine 10 mg PO QHS PRN 07/06/20 [History Last Taken Unknown] sulfamethoxazole-trimethoprim 1 tab PO BID #6 tablet 12/31/20 [Rx Last Taken U nknown] Allergy/AdvReac Type Severity Reaction Status Date / Time No Known Allergies Allergy Verified 12/30/20 20:43 Surgical History (Updated 12/31/20 @ 00:[address] 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 Social History Smoking Status: Never smoker ROS ROS ED Constitutional Constitutional ED: Reports chills and subjective; Denies fever(s) Eyes Eyes: Denies blurry vision or change in vision ENT ENT ED: Denies rhinorrhea or sore throat Cardiovascular Cardiovascular: Denies chest pain or palpitations Respiratory/Chest Respiratory/Chest: Denies cough or dyspnea Gastrointestinal Gastrointestinal: Reports abdominal pain, diarrhea, nausea and vomiting Genitourinary Genitourinary ED: Denies dysuria or hematuria Musculoskeletal Musculoskeletal: Denies back pain or neck pain Integumentary Denies abscess or rash Neurologic Neurologic: Reports headache(s); Denies weakness Allergic/Immunologic Allergic/Immunologic ED: Denies mouth swelling or urticaria EXAM Physical Exam Const Vital Signs: 12/30/20 20:41 12/30/20 20:42 12/30/20 23:55 Temperature 98.3 F 98.3 F Temperature Source Temporal Temporal Pulse Rate 94 94 81 Respiratory Rate 16 16 18 Blood Pressure 189/119 H 189/119 H 172/87 H Blood Pressure Mean 142 142 115 Pulse Ox 95 95 98 Oxygen Delivery Method Room Air Room Air Room Air Positive well nourished, well developed and obese General Appearance ED: well developed Nutritional Appearance: obese HEENT Reports moist mucous membranes Neck supple and no JVD Resp normal respiratory effort and clear to auscultation bilaterally Cardio regular rate and regular rhythm GI non-distended Auscultation: normoactive bowel sounds Palpation: soft and tender other (There is mild diffuse tenderness.); Negative for guarding or rebound tenderness present Neuro CN's II-XII intact bilaterally, moves all extremities and no sensory deficits noted Sensorium / Orientation: alert and oriented to person Psych mental status grossly normal MDM MDM MDM Narrative Medical decision making narrative: CBC was within normal limits. Comprehensive metabolic profile was essentially within normal limits. Urinalysis showed 500 leukocyte esterase with 25-50 white blood cells and 4+ bacteria. Patient was given her 1st dose of Bactrim here. Patient was given a prescription for Bactrim. Patient was instructed to start with a liquid diet. Patient was instructed to advance as tolerated. Patient was instructed to follow-up with her primary care physician in 5 to 7 days. Patient understood and was agreeable with the plan. All questions were answered. Lab Data Attestation: I reviewed the patient's lab results. Labs: Laboratory Results - last 24 hr 12/30/20 12/30/20 12/30/20 22:30 22:30 23:47 WBC 8.4 RBC 4.73 Hgb 12.9 Hct 39.3 MCV 83.1 MCH 27.3 MCHC 32.8 RDW Std Deviation 42.7 RDW Coeff of Dudley 14.0 Plt Count 240 MPV 10.7 Immature Gran % (Auto) 0.700 Neut % (Auto) 83.1 H Lymph % (Auto) 7.6 L [place] % (Auto) 6.3 Eos % (Auto) 2.1 Baso % (Auto) 0.2 Absolute Neuts (auto) 7.0 Absolute Lymphs (auto) 0.64 L Nucleated RBC % 0 Sodium 139 Potassium 4.0 Chloride 109 H Carbon Dioxide 24.0 Anion Gap 6 BUN 15 Creatinine 0.77 Estim Creat Clear Calc 59.15 Est GFR (MDRD) Af Amer 97 Est GFR (MDRD) Non-Af 80 BUN/Creatinine Ratio 19.5 Glucose 107 H Calcium 8.9 Total Bilirubin 0.60 AST 36 ALT 37 Alkaline Phosphatase 107 Total Protein 7.5 Albumin 3.7 Globulin 3.8 Albumin/Globulin Ratio 1.0 Lipase 174 Urine Color Yellow Urine Clarity Cloudy Urine pH 6.5 Ur Specific Gates 1.015 Urine Protein 30 H Urine Glucose (UA) Normal Urine Ketones 5 H Urine Occult Blood 150 H Urine Nitrite Negative Urine Bilirubin Negative Urine Urobilinogen 4 H Ur Leukocyte Esterase 500 H Urine RBC 0-5 SEEN Urine WBC 25-50 SEEN Ur Squamous Epith Cells 0-5 SEEN Amorphous Sediment 2+ Urine Bacteria 4+ Urine Mucus 0 SEEN Discharge Plan Triage Chief Complaint: Nausea/Vomiting/Diarrhea ED Provider: Brady Hernández Dx/Rx/DC Orders Clinical Impression: Urinary tract infection Instructions: ED Bladder Infection, Female (Adult) Prescriptions: New sulfamethoxazole-trimethoprim [sulfamethoxazole-trimethoprim] 1 TABLET tablet 1 tab PO BID Qty: 6 RF: 0 No Action clonazepam 0.5 MG tablet 0.5 mg PO QHS RF: 0 omeprazole 20 MG capsule 20 mg PO DAILY RF: 0 perphenazine 8 MG tablet 8 mg PO QHS RF: 0 pregabalin [Lyrica] 100 MG capsule 100 mg PO BID RF: 0 sertraline 100 MG tablet 100 mg PO DAILY RF: 0 Cholecalciferol (Vitamin D3) [Vitamin D3] 5,000 UNIT capsule 5,000 unit PO DAILY RF: 0 cyclobenzaprine 10 MG tablet 10 mg PO QHS PRN (Reason: Spasms) RF: 0 Primary Care Provider: Nisa Jolley Referrals: Nisa Jolley MD [Primary Care Provider] - 3-5 Days Disposition Disposition: Home, self care
--- NOTE | 2020-12-31 01:25 | ED.RN ---
ATTEMPTED TO CALL PT'S DAUGHTER AND BUT NO ANSWER. CALLED FOR PT 5 STAR CALLED FOR PT KAYLAE SUPPOSED TO ARRIVE AFTER 1.
== END 2020-12-31 03:00 | disposition home or self-care (01) ==
PROVIDERS: Emergency Provider Emergency Medicine; PCP Internal Medicine
DX: N39.0 Urinary tract infection, site not specified (principal); E66.9 Obesity, unspecified; Z96.653 Presence of artificial knee joint, bilateral; E78.5 Hyperlipidemia, unspecified; J45.909 Unspecified asthma, uncomplicated
CPT/HCPCS: 80053; 81001; 83690; 85025; 99284; J7030; A4216; J2405

== ENCOUNTER 2021-02-20 10:01 | Day surgery (SDC) | payer MEDICARE, MEDICAID, SELFPAY ==
[2021-02-20 11:26] VITALS: BP 119/67; PULSE 84; RESP 16; TEMP 36.6; O2SAT 94; BMI 37.3
[2021-02-20] MEDS: Lactated Ringers 1,000 ML 100 ML IV (11:34)
--- NOTE | 2021-02-20 12:28 | RAD_ITS ---
PROCEDURE: Fluoroscopy in the OR. DATE OF EXAMINATION: 02/20/2021. INDICATION: Female, 65 years old. Bilateral SI joint injection. FLUOROSCOPY TIME (if supplied): Not provided RADIATION DOSAGE (If Supplied By Facility): Not provided PROCEDURE/TECHNIQUE: Fluoroscopy was provided during the procedure. A single image was the liver interpretation. The study demonstrates a needle in the left SI joint. Contrast is seen within the joint space. Please refer to procedural details. RAD/Fluoro Guided Needle Placement IMPRESSION: Fluoroscopy provided during a bilateral SI joint injection. Electronically Signed: Nehemiah Nathan DO at 16:26 EDT Tel [phone], Service support ,
--- NOTE | 2021-02-20 12:28 | RAD_ITS ---
PROCEDURE: Fluoroscopy in the OR. DATE OF EXAMINATION: 02/20/2021. INDICATION: Female, 65 years old. Bilateral SI joint injection. FLUOROSCOPY TIME (if supplied): Not provided RADIATION DOSAGE (If Supplied By Facility): Not provided PROCEDURE/TECHNIQUE: Fluoroscopy was provided in the OR. The provided image demonstrates a needle and wire is thought to be the right SI joint with injection of contrast into the joint space. Please agree for to the procedural report for further details. RAD/Fluoro Guided Needle Placement IMPRESSION: Fluoroscopic guidance provided during the performance of an SI joint injection. Electronically Signed: Nehemiah Nathan DO at 16:16 EDT Tel [phone], Service support ,
[2021-02-20] MEDS: MethylPREDNISolone Acetate 80 MG/ML Vial (12:30)
[2021-02-20] MEDS: Bupivacaine 0.25% 30 ML Vial (12:31)
[2021-02-20] MEDS: Lidocaine 1% (5 ml sdv) 5 ML Vial (12:31)
[2021-02-20 12:40] VITALS: BP 110/65; BP 119/67; PULSE 84; RESP 18; TEMP 36.3; O2SAT 97
[2021-02-20 12:45] VITALS: BP 103/47; BP 119/67; PULSE 80; RESP 16; O2SAT 97
[2021-02-20 12:50] VITALS: BP 112/74; BP 119/67; PULSE 73; RESP 16; O2SAT 97
[2021-02-20 12:55] VITALS: BP 110/68; BP 119/67; PULSE 75; RESP 96; TEMP 36.2; O2SAT 96
[2021-02-20 13:14] VITALS: BP 119/67
--- NOTE | 2021-02-20 17:27 | PCM.OPRPT ---
Report of Operation Date of Procedure: 02/20/21 Description of Surgical Findings:: PROCEDURE: Bilateral sacroiliac joint steroid injection under fluoroscopic guidance PREOPERATIVE DIAGNOSIS: Sacroiliitis, sacroiliac joint dysfunction POSTOPERATIVE DIAGNOSIS: Sacroiliitis, sacroiliac joint dysfunction ANESTHESIA: MAC COMPLICATIONS: None BLOOD LOSS: Minimal PROCEDURE IN DETAIL: History and physical today was reviewed. Risks and benefits of the procedure were explained. The patient understood, agreed to our procedure, and informed consent was obtained. IV inserted per routine protocol. The patient was taken to the operating room, placed in a prone position with a pillow positioned underneath the abdomen. The lower back and buttock area was prepped and draped in a sterile fashion using iodine ?3 under fluoroscopy guidance on the AP as well as oblique view bilateral sacroiliac joints are visualized the skin and subcutaneous tissue was anesthetized with approximately 5 cc of 1% lidocaine using a 25-gauge regular needle, under direct visualization with fluoroscopy starting on the left SI ending on the right SI using a 22-gauge 3 and half inch spinal needle the needle passed through the skin the tip of the needle's maneuver and directed towards the inferior one third of the posterior SI joint once the tip of the needle was at the vicinity of the joint after negative aspiration for blood or CSF a total of 2 cc of contrast was injected in divided doses between both levels to confirm correct placement of the needle as well as cephalocaudad spread, confirmation was obtained on AP as well as oblique view after repeated negative aspiration a total of 8 cc of preservative-free 0.25% Marcaine with 80 mg of Depo-Medrol were injected in divided doses between both levels. The needles were then removed intact.The patient experienced no signs or symptoms of intrathecal or intravascular injection. The patient experienced no paraesthesia. The procedure was completed without any apparent difficulty, any complication. The patient appeared to tolerate well. ASSESSMENT AND PLAN: This is a 65-year-old female with sacroiliitis SI joint dysfunction status post bilateral sacroiliac joint steroid injection under fluoroscopic guidance. The patient will continue her current medications. The patient will follow in approximately 2 weeks for reevaluation.
== END 2021-02-20 13:17 | disposition home or self-care (01) ==
LOC: SDC 10:01 → AC 10:48
PROVIDERS: PCP Internal Medicine; Referring Provider Anesthesiology Pain Medicine; Visit Provider Anesthesiology Pain Medicine
PROC: 3E0U3BZ Introduction of Anesthetic Agent into Joints, Percutaneous Approach (ICD-10-PCS; CPT 64451; principal; 2021-02-20 11:45)
DX: M46.1 Sacroiliitis, not elsewhere classified (principal); M53.3 Sacrococcygeal disorders, not elsewhere classified; Z79.891 Long term (current) use of opiate analgesic; M51.36 Other intervertebral disc degeneration, lumbar region; M51.37 Other intervertebral disc degeneration, lumbosacral region; M54.17 Radiculopathy, lumbosacral region; M54.5 Low back pain; M54.16 Radiculopathy, lumbar region; M46.96 Unspecified inflammatory spondylopathy, lumbar region
CPT/HCPCS: 01992; 20552; 76000; 77002; J7120

== ENCOUNTER 2021-03-13 17:27 | Emergency (ER) | payer MEDICARE, MEDICAID, SELFPAY ==
[2021-03-13 17:29] VITALS: BP 166/111; PULSE 96; RESP 14; TEMP 37; O2SAT 97; BMI 36.3
--- NOTE | 2021-03-13 20:01 | EDS_ITS ---
HPI History of Present Illness Chief Complaint: Dental Detail of Chief Complaint: Right lower jaw dental pain. Informant: patient Onset/Context/Timing Onset: Days Context: Gradual Onset Timing: Continuous Current Severity: Mild Maximum Severity: Moderate Narrative Narrative: Two 5-year-old female complaining of right lower jaw dental pain since Saturday. Said mild swelling. No fever. No trouble swallowing. Her only medical problem is mental illness which she is on medications for fibromyalgia. She has a dental appointment tomorrow. Prior similar symptoms: Yes Recent Illness/Hospitalization: No PFSH PFS Medical History Asthma Fibromyalgia Hyperlipemia Home Medications clonazepam 0.5 mg PO QHS 09/16/14 [History Last Taken 09/17/19] omeprazole 20 mg PO DAILY 09/16/14 [History Last Taken 02/20/21 08:30] perphenazine 8 mg PO QHS 09/16/14 [History Last Taken 09/17/19] pregabalin [Lyrica] 100 mg PO BID 09/16/14 [History Last Taken 09/18/19] Cholecalciferol (Vitamin D3) [Vitamin D3] 5,000 unit PO DAILY 09/18/19 [History Last Taken 09/17/19] sertraline 100 mg PO DAILY 09/18/19 [History Last Taken 09/17/19] cyclobenzaprine 10 mg PO QHS PRN 07/06/20 [History Last Taken Unknown] penicillin V potassium 500 mg PO 4X/DAY #30 tab 03/13/21 [Rx Last Taken Unknown] Allergy/AdvReac Type Severity Reaction Status Date / Time No Known Allergies Allergy Verified 03/13/21 17:28 Surgical History 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 Social History Smoking Status: Never smoker ROS ROS ED ROS Narrative Denies recent illness. Review of Systems ROS Unobtainable: Denies due to encephalopathy Constitutional Constitutional ED: Denies fever(s) Eyes Eyes: Denies change in vision ENT ENT ED: Denies ear pain Cardiovascular Cardiovascular: Denies chest pain Respiratory/Chest Respiratory/Chest: Denies dyspnea Gastrointestinal Gastrointestinal: Denies abdominal pain, diarrhea, nausea or vomiting Genitourinary Genitourinary ED: Denies dysuria Musculoskeletal Musculoskeletal: Denies myalgias Integumentary Denies rash Neurologic Neurologic: Denies headache(s) Psychiatric Psychiatric: Denies depression Endocrine Endocrinology: Denies polyuria Hematologic/Lymphatic Hematologic/Lymphatic: Denies easy bruising Allergic/Immunologic Allergic/Immunologic ED: Denies urticaria EXAM Physical Exam Narrative Exam Narrative: 65-year-old female no acute distress. Vital signs stable afebrile. Mouth exam her right last tooth she is missing her molars at the premolar is mildly tender there is minimal gingival swelling. There is no obvious cavity. There is no trauma to the tooth. And there is no abscess. She has mild tenderness. The other dentition she has multiple missing teeth and several cavities. The floor of her mouth is not swollen. The posterior pharynx is normal. Her neck is nontender without lymphadenopathy or swelling. Her face has no significant swelling. Const Vital Signs: 03/13/21 17:29 Temperature 98.6 F Temperature Source Temporal Pulse Rate 96 Respiratory Rate 14 Blood Pressure 166/111 H Blood Pressure Mean 129 Pulse Ox 97 Oxygen Delivery Method Room Air Positive well nourished and well developed General Appearance ED: well developed and NAD HEENT Negative for trauma or tenderness Mouth ED: Yes lips normal and Yes tongue normal Mouth: lips normal and tongue normal Teeth and Gingiva: abnormal tooth and associated gingiva, caries, gingiva abnormal and poor dentition Throat: posterior oropharynx normal Eyes PERRL and EOMs intact bilaterally Neck no lymphadenopathy, supple and no JVD General: normal visual inspection; Negative for anterior neck swelling, tenderness or submandibular swelling Lymph Lymphatic: no lymphadenopathy noted; Negative for lymphadenopathy Chest Wall inspection of chest normal and palpation of chest normal Resp normal respiratory effort, no retractions and clear to auscultation bilaterally Cardio regular rate, regular rhythm, S1 normal heart sound, S2 normal heart sound and no murmurs GI normal to inspection, nondistended, normoactive bowel sounds, non-tender, non- distended and no masses Palpation: soft Extremity normal to inspection Neuro oriented x3 Sensorium / Orientation: alert, oriented to person, oriented to place and oriented to time Motor Exam: strength 5/5 throughout Psych mental status grossly normal Skin no rashes or lesions noted MDM MDM MDM Narrative Medical decision making narrative: Right lower jaw premolar tenderness minimal gum swelling no abscess. Should be given 1 [place] here. Tylenol Motrin at home for pain. She has a dental appointment tomorrow. She will be started on pen VK 500 4 times daily for 7 days. Discharge Plan Triage Chief Complaint: Dental ED Provider: Phani Ansari Dx/Rx/DC Orders Clinical Impression: Pain, dental Prescriptions: New penicillin V potassium 500 mg tablet 500 mg PO 4X/DAY Qty: 30 RF: 0 No Action clonazepam 0.5 MG tablet 0.5 mg PO QHS RF: 0 omeprazole 20 MG capsule 20 mg PO DAILY RF: 0 perphenazine 8 MG tablet 8 mg PO QHS RF: 0 pregabalin [Lyrica] 100 MG capsule 100 mg PO BID RF: 0 sertraline 100 MG tablet 100 mg PO DAILY RF: 0 Cholecalciferol (Vitamin D3) [Vitamin D3] 5,000 UNIT capsule 5,000 unit PO DAILY RF: 0 cyclobenzaprine 10 MG tablet 10 mg PO QHS PRN (Reason: Spasms) RF: 0 Primary Care Provider: Nisa Jolley Referrals: Nisa Jolley MD [Primary Care Provider] - As Needed Activity Restrictions/Additional Instructions: See your dentist tomorrow. Ice to try to decrease pain and swelling. Tylenol Motrin for pain. Penicillin 4 times a day for possible infection. Disposition Disposition: Home, Self Care
[2021-03-13] MEDS: Penicillin Vk 250 MG Tablet 500 MG PO (20:51)
[2021-03-13] MEDS: HYDROcodone Bitartrate/Apap 5/325 Tablet PO (20:51)
== END 2021-03-13 20:53 | disposition home or self-care (01) ==
LOC: ED 20:15
PROVIDERS: Emergency Provider Emergency Medicine; PCP Internal Medicine
DX: K08.89 Other specified disorders of teeth and supporting structures (principal); E78.5 Hyperlipidemia, unspecified; J45.909 Unspecified asthma, uncomplicated; Z96.653 Presence of artificial knee joint, bilateral; M79.7 Fibromyalgia
CPT/HCPCS: 99281

== ENCOUNTER 2021-11-20 07:41 | Day surgery (SDC) | payer MEDICARE, MEDICAID, SELFPAY ==
[2021-11-20] VITALS (7 sets, daily range): BP systolic 104–139; BP diastolic 55–81; PULSE 69–78; RESP 16; TEMP 36.3–36.7; O2SAT 96–98; BMI 35.9
[2021-11-20] MEDS: Lactated Ringers 1,000 ML 15 ML IV (07:55)
--- NOTE | 2021-11-20 09:30 | RAD_ITS ---
INDICATION: BILAT SI JOINT INJECTION -- LEFT EXAMINATION/TECHNIQUE: X-RAY - LEFT XR Hip Unilateral with Pelvis when performed; 1 View 4 VIEWS COMPARISON: None. FLUOROSCOPY DOSE: 2.82 mGy FLUOROSCOPY TIME: 9.7 seconds FINDINGS: 2 images were obtained intraoperatively. Images demonstrate needle placement overlying the sacroiliac joint followed by contrast injection.. No radiologist was present for the procedure, please refer to operative report for details. RAD/Fluoro Guided Needle Placement IMPRESSION: Please refer to operative report for details. Electronically Signed: Christos Velez MD at 12:30 EDT ,
--- NOTE | 2021-11-20 09:30 | RAD_ITS ---
INDICATION: BILAT SI JOINT INJECTION EXAMINATION/TECHNIQUE: X-RAY - XR Hip Unilateral with Pelvis when performed; 1 View COMPARISON: None. FLUOROSCOPY DOSE: 2.82 mGy FLUOROSCOPY TIME: 9.7 seconds FINDINGS: 2 images were obtained intraoperatively. Images demonstrate the needle placement overlying the sacroiliac joints bilaterally followed by contrast injection.. No radiologist was present for the procedure, please refer to operative report for details. RAD/Fluoro Guided Needle Placement IMPRESSION: Please refer to operative report for details. Electronically Signed: Christos Velez MD at 12:29 EDT ,
[2021-11-20] MEDS: MethylPREDNISolone Acetate 80 MG/ML Vial (09:34)
[2021-11-20] MEDS: Bupivacaine 0.25% 30 ML Vial (09:35)
[2021-11-20] MEDS: Lidocaine 1% (5 ml sdv) 5 ML Vial (09:35)
--- NOTE | 2021-11-20 12:10 | PCM.OPRPT ---
Report of Operation Date of Procedure: 11/20/21 Description of Surgical Findings:: Bilateral sacroiliac joint steroid injection under fluoroscopic guidance PREOPERATIVE DIAGNOSIS: Sacroiliitis, sacroiliac joint dysfunction POSTOPERATIVE DIAGNOSIS: Sacroiliitis, sacroiliac joint dysfunction ANESTHESIA: MAC COMPLICATIONS: None BLOOD LOSS: Minimal PROCEDURE IN DETAIL: History and physical today was reviewed. Risks and benefits of the procedure were explained. The patient understood, agreed to our procedure, and informed consent was obtained. IV inserted per routine protocol. The patient was taken to the operating room, placed in a prone position with a pillow positioned underneath the abdomen. The lower back and buttock area was prepped and draped in a sterile fashion using iodine ?3 under fluoroscopy guidance on the AP as well as oblique view bilateral sacroiliac joints are visualized the skin and subcutaneous tissue was anesthetized with approximately 5 cc of 1% lidocaine using a 25-gauge regular needle, under direct visualization with fluoroscopy starting on the left SI ending on the right SI using a 22-gauge 3 and half inch spinal needle the needle passed through the skin the tip of the needle's maneuver and directed towards the inferior one third of the posterior SI joint once the tip of the needle was at the vicinity of the joint after negative aspiration for blood or CSF a total of 2 cc of contrast was injected in divided doses between both levels to confirm correct placement of the needle as well as cephalocaudad spread, confirmation was obtained on AP as well as oblique view after repeated negative aspiration a total of 8 cc of preservative-free 0.25% Marcaine with 80 mg of Depo-Medrol were injected in divided doses between both levels. The needles were then removed intact.The patient experienced no signs or symptoms of intrathecal or intravascular injection. The patient experienced no paraesthesia. The procedure was completed without any apparent difficulty, any complication. The patient appeared to tolerate well. ASSESSMENT AND PLAN: This is a 66-year-old female with sacroiliitis SI joint dysfunction status post bilateral sacroiliac joint steroid injection under fluoroscopic guidance. The patient will continue her current medications. The patient will follow in approximately 2 weeks for reevaluation.
== END 2021-11-20 10:29 | disposition home or self-care (01) ==
LOC: SDC 07:43 → AC 07:43
PROVIDERS: PCP Internal Medicine; Visit Provider Anesthesiology Pain Medicine
PROC: 3E0U3BZ Introduction of Anesthetic Agent into Joints, Percutaneous Approach (ICD-10-PCS; CPT 64451; principal; 2021-11-20 09:25)
DX: M46.1 Sacroiliitis, not elsewhere classified (principal); M53.2X8 Spinal instabilities, sacral and sacrococcygeal region; M79.7 Fibromyalgia; M51.37 Other intervertebral disc degeneration, lumbosacral region; M54.50 Low back pain, unspecified; G89.29 Other chronic pain; Z79.891 Long term (current) use of opiate analgesic
CPT/HCPCS: 27096; 76000; 77002; J7120

== ENCOUNTER 2022-04-17 09:37 | Day surgery (SDC) | payer MEDICARE, MEDICAID, SELFPAY ==
--- NOTE | 2022-04-17 07:36 | HP.PCM_ITS ---
History and Physical Date of Admission: 04/17/22 HISTORY AND PHYSICAL ? Ewelina Roa 1955 ? ? REFERRING PHYSICIAN:? ?Jenifer Sauer MD ? CHIEF COMPLAINT:? ?left breast neoplasm ? HPI: The patient is a 66 year old female findings of papilloma by needle core biopsy. ? She is s/p left needle core breast biopsy via ultrasound on 03/15/2022. FINAL DIAGNOSIS A.? Left breast mass, 6:00, 1 cm from nipple, ribbon clip, ultrasound-guided core biopsy: -- Intraductal papilloma. She denies any problems with the biopsy site. She is here for discussion of further therapy. ? ? PAST MEDICAL HISTORY ?Allergic rhinitis? ?allergy injections; Dr. Edward Palomino ?Asthma? ?CRPS (complex regional pain syndrome)? ?bilateral? ?Depression? ?DJD (degenerative joint disease) of knee? ?bilateral ?DJD (degenerative joint disease) of knee? ?bilateral; Dr. Evangelista since 2013 ?Hiatal hernia? ?Hypercholesterolemia 02/09/2010 ?Menopause, postsurgical? ?CARLOS-BSO for fibroids ?Myalgia and myositis, unspecified? ?Obstructive sleep apnea01/12/2016 ?OSKAR (obstructive sleep apnea)? ?on CPAP ?Positive PPD? ?never treated; was done for work around 1984 ?Schizophrenia, paranoid type (HCC)? ?Type O blood, Rh negative? ?T&C when had blood transfusion September 2014 ?VITAMIN D DEFICIENCY NOS06/03/2007 ? ? PAST SURGICAL HISTORY ? DELIVERY ONLY 1981 ?, low cervical ?COLONOSCOPY FLX DX W/COLLJ SPEC WHEN PFRMD 04/28/2014 ?Colonoscopy ?ESOPHAGOGASTRODUODENOSCOPY TRANSORAL DIAGNOSTIC 04/28/2014 ?EGD ?PAST SURGICAL HISTORY OF age 5 ?eye? ?PAST SURGICAL HISTORY OF 09/2014 ?right TKR? ?PAST SURGICAL HISTORY OF ? ?left knee TKR ?PAST SURGICAL HISTORY OF 11/2015 ?right shoulder ?PAST SURGICAL HISTORY OF 05/23/16 ?left shoulder? ?SEPTOPLASTY/SUBMUCOUS RESECJ W/WO CARTILAGE GRF 1983 ?Septoplasty ?TOTAL ABDOMINAL HYSTERECT W/WO RMVL TUBE OVARY 1988 ?Hysterectomy, CARLOS ? ? Current Outpatient Medications ?omeprazole (PRILOSEC) 20 mg capsuleTake 1 capsule by mouth daily before breakfast. 1/2 hr before meal. ?albuterol (PROVENTIL) 2.5 mg /3 mL (0.083 %) nebulizer solutionInhale by nebulizer over 5-15 minutes four (4) times a day as needed.(J45.20) Mild intermittent asthma without complication ?ipratropium (ATROVENT) 0.02 % nebulizer solutionUse 2.5 mL via nebulizer four times daily as needed. As directed as needed.? (J45.20) Mild intermittent asthma without complication ?fluticasone (FLONASE) 50 mcg/actuation nasal sprayUse 2 Sprays in each nostril once daily as needed for cold/allergy symptoms. Rinse mouth after use. ?diclofenac (VOLTAREN) 1 % topical gelApply 2 g to affected area daily at bedtime. ?Cholecalciferol, Vitamin D3, 125 mcg (5,000 unit) capTake 1 capsule by mouth once daily. ?rosuvastatin (CRESTOR) 10 mg tabletTake 1 tablet by mouth daily at bedtime. ?pregabalin (LYRICA) 100 mg capsuleTake 1 capsule by mouth twice daily for 180 days. ?albuterol HFA (VENTOLIN HFA) 90 mcg/actuation inhalerInhale 2 Puffs as instructed every 4 hours as needed for wheezing/shortness of breath. ?perphenazine 8 mg tabletTake 1 tablet by mouth daily at bedtime. ([facility]) ?[place]-3 Fatty Acids 500 mg capTake by mouth once daily. ?clonazePAM (KLONOPIN) 0.5 mg tabletTake 1 tablet by mouth daily at bedtime. ([facility] gives RX) ?therapeutic multivitamin tabletTake 1 tablet by mouth once daily. ?sertraline (ZOLOFT) 50 mg tabletTake 1 tablet by mouth once daily. ? ? ALLERGIES: Seasonal Allergies ? PERSONAL HISTORY:? Tobacco Use ?Smoking status:Never ?Smokeless tobacco:Never Vaping Use ?Vaping Use:Never used Substance Use Topics ?Alcohol use:No ?Drug use:No ?? ? FAMILY HISTORY? ProblemRelationAge of Onset ?ThyroidMother? hypo ?StrokeMother? ?HeartFather? ?Prostate CancerFather? ?DiabetesSister? ?DiabetesMaternal Grandmother? ?other (Systelmic lupus erythematosis)Daughter? ?other (sjogrens)Daughter? ?Colon CancerPaternal Aunt? ?other (Other)Other? Aunts and uncles on father's side with stroke history ? ? REVIEW OF SYSTEMS: ? ? ?General:? ?The patient denies fatigue, denies weight loss, denies weight gain, denies feeling hot, and denies feelings of cold. ? ? ?Eyes:? The patient denies glaucoma, denies eye injury/surgery, wears glasses or contacts. ? ? ?Ear/Nose/Throat:? The patient notes allergies, denies hayfever, denies ear infections, and denies bloody noses. ? ? ?Cardiovascular:? The patient denies chest pain, denies heart disease, denies high blood pressure,denies cardiac stent, denies prior heart attack, denies irregular heart beat, notes high cholesterol,? denies poor circulation, denies heart failure, other cardiac issues, denies claudication, denies cold feet, denies peripheral arterial stent. ? ? ?Respiratory:? The patient denies tuberculosis, denies pneumonia, denies frequent cough, denies pulmonary embolism, denies shortness of breath, and denies coughing up blood. ? ? ?Gastrointestinal:? The patient denies difficulty swallowing, notes acid reflux, denies ulcers, denies vomiting, denies jaundice/hepatitis, denies gallbladder problems, denies black or tarry stools, denies hemorrhoids, denies bleeding from rectum, denies diverticulitis, denies constipation, denies diarr hea, denies loss of stool control, and denies hernias. ? ? ?Kidney/Bladder:? The patient denies kidney stones, denies urine infections, and denies bloody urine. ? ? ?Skin:? The patient denies a history of skin cancer, denies bleeding/changing moles, and denies a history of skin rash. ? ? ?Neurologic:? The patient denies a history of epilepsy/convulsions, denies headaches, denies head/spinal injuries, and denies stroke/TIA. ? ? ?Psychiatric:? The patient notes psychiatric medications, denies depression, and denies voices, denies substance abuse. ? ? ?Endocrine:? The patient denies thyroid disorders, denies diabetes, and denies hormonal problems. ? ? ?Hematologic:? The patient denies a history of bruising, denies bleeding, and denies anemia, denies blood clots. ? ? ?Infections:? The patient denies a history of measles and mumps, denies rheumatic fever, and denies sexually transmitted diseases. ? ? ?Musculoskeletal:? The patient denies back pain/injury, denies back problems, denies sciatica, denies knee/foot trouble, notes arthritis, or denies gout. ? ? ?Gynecological: menarche onset at age 11, , breast feeding 1 m, surgical menopause at age 35, denies exogenous hormones use ? ? ? PHYSICAL EXAMINATION: ? General:? The patient is 66 year old female, well nourished, well hydrated in no acute distress.? The patient is oriented to time, place, and person. ? VITALS: Blood pressure 142/86, pulse 114, temperature 37.3 ?C (99.1 ?F), height 157.5 cm (5' 2), weight 93.9 kg (207 lb), SpO2 95 %. Body mass index is 37.86 kg/m?.? ? Head:? Normal cephalic, atraumatic ? Eyes: pupils are equally round, sclera are clear/anicteric ? Neck is supple with no tracheal deviation ? Chest: left breast biopsy site - no evidence of infection, slight ecchymosis ? Respiratory:? Normal respiratory excursion and pattern. ? Abdominal exam:? benign ? Extremities:? no clubbing, cyanosis or edema.? ? Neuro: non focal ? Psych: normal mood? IMPRESSION: papilloma by needle core biopsy of left breast ? PLAN:? ?I have discussed the above with the patient. I have discussed options of continued observation versus excisional biopsy of the previous biopsy site. I have explained the procedure to the patient.? Wire localization of the marker clip placed during biopsy and then open excisional biopsy in the OR. I have counseled the patient as to the risks of the procedure, including but not limited to: infection, bleeding, injury to any blood vessels/nerves, scar tissue, wound infections, complications of anesthesia, etc. ? the patient understands. The patient wishes to proceed with excisional biopsy. ? I have answered all questions to the patient?s satisfaction and the patient has no further questions. ? . 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 (primary encounter diagnosis) ? Jenifer Sauer MD
[2022-04-17 10:11] VITALS: BP 146/99; PULSE 83; RESP 16; TEMP 36.6; O2SAT 95; BMI 37.0
[2022-04-17] MEDS: Lactated Ringers 1,000 ML 75 ML IV (10:11)
--- NOTE | 2022-04-17 10:26 | BI_ITS ---
SURGICAL BREAST SPECIMEN RADIOGRAPH CLINICAL: Document presence of tissue clip marker in biopsy specimen. FINDINGS: Specimen shows presence of tissue clip marker. Electronically Signed: Porfirio Gurrola MD at 13:45 EDT , BI/Breast Biopsy Specimen IMPRESSION: undefined
[2022-04-17] MEDS: Cefazolin 2 GM in 0.9% Normal Saline 100 ML IV (12:10)
--- NOTE | 2022-04-17 12:15 | OP.PCM_ITS ---
Report of Operation Date of Procedure: 04/17/22 Pre-Operative Diagnosis: papilloma of left breast by needle core biopsy Post-Operative Diagnosis: same Surgery/Procedure Performed:: left breast biopsy via wire localization Surgeon: Jenifer Sauer special equipment technician: Phani Toledo Anesthesiologist: Diana Chiang Specimen's removed: left breast tissue Estimated Blood Loss (mL): minimal Fluids Replaced: 600 ml RL Description of Procedure: After informed consent was given, the patient was brought into the Breast Stereotactic Radiology suite. Appropriate time out protocol was followed. The patient was then placed in the prone position on the [place] stereotactic table. The patient?s left breast was placed in the opening at the head of the table. A veterinary anatomist compression mammogram was then obtained in the CC view. The marker clip that was previously placed was identified. Stereo pictures of the lesion were then taken for XYZ coordinates. The Kopans needle was then positioned where it would be entering into the patient?s breast. The skin at this site was then cleansed with a surgical skin preparation. The skin and subcutaneous tissues at this site were then infiltrated with 1% xylocaine. The Kopans needle was then positioned into the patient?s breast at the proper coordinates of depth. A veterinary anatomist film was obtained which revealed the wire in proper position. The patient was then placed in the supine position and the wire was taped into place. A unilateral mammogram in the CC and MLO view were then taken for use in the OR. The patient tolerated this portion of the procedure well and was brought to the AC awaiting surgery in the OR. The patient was then brought to the Operating Room. Appropriate time out protocol was followed. The patient was then placed on the operating table in the supine position. A wire had already been placed in the stereotactic biopsy room in the radiology department as described above. The left breast with the wire in placed was then prepped with a sterile surgical skin preparation and sterile surgical drapes were placed. The skin and subcutaneous tissues at the site of the breast lesion was then infiltrated with local anesthesia with epinephrine. A transverse curvilinear skin incision was made at the medial areolar border with a 15 blade scalpel and carried down through to the subcutaneous tissues. Hemostasis was controlled with electrocautery. The wire was then palpated out within the breast tissue. It was brought into the wound from outside. The breast tissue surrounding the wire was then carefully palpated out and from the surrounding tissues using electrocautery. The breast tissue, once from the breast, was then forwarded to the radiology department, where a specimen mammogram revealed that the marker clip was within the specimen. The breast tissue was then forwarded to pathology for analysis. The wound cavity was carefully examined. No further suspicious tissue was palpated or visualized. Hemostasis was carefully controlled with electrocautery. The subdermal tissues were then approximated with vicryl suture. The incision was then reapproximated close using running monocryl suture. Cavilon and steristrips were then placed to reinforce the skin closure. Sponge, needle, and instrument count were verified and correct at the time of skin closure. A sterile dressing was then applied. The patient was then brought to the Recovery Room in stable condition.
[2022-04-17] MEDS: Lidocaine 1% /Epi 1:100 (20ml) 20 ML Vial (12:30)
--- NOTE | 2022-04-17 12:47 | BRBX_PTH ---
PATIENT: NAMAN WAHL LOC: [facility] [place] U[place][id number] AGE/SX: 66/F ROOM: RE04/17/[address]: Dr. Jenifer Sauer MD : 1955 BED: DIS: 04/17/2022 SPEC #: [id number] RECD: 04/17/22 12:55 STATUS: ANTON RERamone #: [id number] ADEBAYO: 04/17/22 12:[address]: Jenifer Sauer DEPT: SURGICAL PATHOLOGY RECD BY: Elvia Cardona ENTERED: 04/17/22 13:07 SP TYPE: BREAST BX OTHR DR: Dr. Nisa Jolley MD Tissues: Left breast, NOS Procedures: Surgery Specimen Level IV HEADER OPERATION: Left breast biopsy, wire localization PRE-OP DIAGNOSIS: Neoplasm of left breast TISSUE SUBMITTED: Left breast mass MICROSCOPIC DIAGNOSIS Left breast, wire-guided lumpectomy: Fibrocystic change with associated microcalcifications. Multifocal usual intraductal hyperplasia without atypia. Adenosis. Focal fat necrosis. Banal calcifications of vessel villa. No evidence of malignancy. AM:shea 04/20/2022 COMMENT Case has been reviewed in consultation with Dr. Keen who concurs with the above diagnosis. IDC:SJ MICROSCOPIC DESCRIPTION Slides are reviewed. GROSS DESCRIPTION Received fresh and post-fixed in formalin labeled with the patient's name and designated left breast mass. The specimen consists of a piece of fibroadipose tissue with needle localization measuring 8 x 3 x 2 cm. No orientation is provided. The specimen is inked, serially sectioned and reveals yellow adipose cut surface with focal fibrous area. No mass lesion is identified. The entire specimen is submitted in 13 cassettes from one to another end. The specimen is submitted after additional fixation. / MITALI:shea 04/18/2022 TC:5 CPT: 26664
--- NOTE | 2022-04-17 13:07 | DCINST_ITS ---
Discharge Instructions Follow Up Care Test Results: Test results from this visit will be discussed in further detail at your follow- up appointment, if applicable. Discharge Plan Admission Attending Provider: Jenifer Sauer Primary Care Provider: Nisa Jolley Instructions Additional Instructions / Restrictions: Recommended pain control regimen - May take 600 mg ibuprofen (Motrin) and then in 3-4 hours, may take 650 mg acetaminophen (Tylenol), then in 3-4 hours may take 600 mg ibuprofen, then in 3- 4 hours may take 650 mg acetaminophen and so on for 2-3 days May take narcotic pain medication for pain that is not controlled by above and at night for comfort through the night Leave dressings in place May shower, do not scrub in the areas of the dressings as they may unravel. Do not soak - no tub baths/swimming Ice applied to areas of discomfort may help For breast surgeries - wear supportive bra during the day to prevent the weight of your breasts from pulling on the incisional site. Please call my office for an appointment to see me in 1-2 weeks. Office number is If any questions, please call my office at and ask the dumping machine operator for the general surgery nurses desk Discharge Orders/Prescriptions Prescriptions: New hydrocodone-acetaminophen 5-325 mg tablet 1 tab PO Q8H 5 Days Qty: 15 0RF No Action clonazepam 0.5 MG tablet 0.5 mg PO QHS Label Comments: ANXIETY/SLEEP omeprazole 20 MG capsule 20 mg PO DAILY Label Comments: ACID REFLUX perphenazine 8 MG tablet 8 mg PO QHS Label Comments: ANTI-PSYCHOTIC pregabalin [Lyrica] 100 MG capsule 100 mg PO BID Label Comments: NERVE PAIN sertraline 100 MG tablet 100 mg PO DAILY Cholecalciferol (Vitamin D3) [Vitamin D3] 5,000 UNIT capsule 5,000 unit PO DAILY cyclobenzaprine 10 MG tablet 10 mg PO QHS PRN (Reason: low back spasms) Referrals / Follow Up: Nisa Jolley MD [Primary Care Provider] - Disposition Disposition (needs filled in before D/C Order can be placed): Home, Self Care
[2022-04-17 13:17] VITALS: BP 146/99; BP 154/83; PULSE 85; RESP 18; TEMP 36.3; O2SAT 96
[2022-04-17 13:36] VITALS: BP 132/72; BP 146/99; PULSE 86; RESP 12; O2SAT 93
[2022-04-17 13:48] VITALS: BP 135/69; BP 146/99; PULSE 79; RESP 18; O2SAT 93
[2022-04-17 13:52] VITALS: BP 120/72; BP 146/99; PULSE 81; RESP 18; TEMP 36.5; O2SAT 94
[2022-04-17 14:35] VITALS: BP 146/99
== END 2022-04-17 14:36 | disposition home or self-care (01) ==
LOC: SDC 09:39 → AC 09:39
PROVIDERS: PCP Internal Medicine; Referring Provider Surgery; Visit Provider Surgery
PROC: (CPT 19301; principal; 2022-04-17 11:45)
DX: D24.2 Benign neoplasm of left breast (principal); F20.9 Schizophrenia, unspecified; Z79.899 Other long term (current) drug therapy; F32.A Depression, unspecified; N63.25 Unspecified lump in the left breast, overlapping quadrants; E78.5 Hyperlipidemia, unspecified; K21.9 Gastro-esophageal reflux disease without esophagitis; R92.0 Mammographic microcalcification found on diagnostic imaging of breast; N64.1 Fat necrosis of breast
CPT/HCPCS: 19081; 19101; 19281; 76098; 88305; J7120; J2405; J3490; Q9968

== ENCOUNTER 2022-08-20 12:06 | Day surgery (SDC) | payer MEDICARE, MEDICAID, SELFPAY ==
[2022-08-20] VITALS (7 sets, daily range): BP systolic 128–149; BP diastolic 74–88; PULSE 70–78; RESP 16–18; TEMP 36.4–36.6; O2SAT 96–99; BMI 36.6
[2022-08-20] MEDS: Lactated Ringers 1,000 ML 15 ML IV (13:37)
--- NOTE | 2022-08-20 14:12 | RAD_ITS ---
STUDY: X-RAY - SACROILIAC JOINTS REASON FOR EXAM: Female, 67 years old. SI JOINT INJECTIONS, RIGHT. TECHNIQUE: 2 intraprocedural documentation view(s) of the sacroiliac joints were obtained. COMPARISON: None. FINDINGS: 2 intraoperative digital documentation views show contrast projected over the left sacroiliac joint. RAD/Fluoro Guided Needle Placement IMPRESSION: Intraprocedural documentation views. Electronically Signed: Edwin Zepeda, at 10:10 EST ,
--- NOTE | 2022-08-20 14:12 | RAD_ITS ---
STUDY: X-RAY - SI joint REASON FOR EXAM: Female, 67 years old. SI JOINT INJECTIONS, LEFT TECHNIQUE: 2 intraoperative views of the left SI joint. COMPARISON: None. FINDINGS: Intraoperative images demonstrate placement of a needle at the left SI joint. RAD/Fluoro Guided Needle Placement IMPRESSION: Left SI joint needle localization. Electronically Signed: Keaton Mota DO at 22:17 [facility] ,
[2022-08-20] MEDS: Lidocaine 1% (5 ml sdv) 5 ML Vial (14:16)
[2022-08-20] MEDS: MethylPREDNISolone Acetate 80 MG/ML Vial (14:16)
--- NOTE | 2022-08-20 15:54 | PCM.OPRPT ---
Report of Operation Date of Procedure: 08/20/22 Description of Surgical Findings:: PREOPERATIVE DIAGNOSES: 1. Sacroiliitis. 2. Sacroiliac joint dysfunction. POSTOPERATIVE DIAGNOSES: 1. Sacroiliitis. 2. Sacroiliac joint dysfunction. PROCEDURE PERFORMED: Bilateral sacroiliac joint steroid injection under fluoroscopy guidance. ANESTHESIA: MAC. BLOOD LOSS: Minimal. COMPLICATIONS: None. DESCRIPTION OF PROCEDURE: History and physical of today was reviewed. Risks and benefits of the procedure were explained. The patient understood and agreed to the procedure. Informed consent was obtained. IV inserted per routine protocol. The patient was taken to the operating room and placed in the prone position with a pillow positioned underneath the abdomen. The lower back and buttock area was prepped and draped in a sterile fashion using iodine x3. Under fluoroscopy guidance on an AP view, the bilateral SI joint was visualized. The skin and subcutaneous tissue was anesthetized with approximately 3 mL of 1% lidocaine using a 25-gauge regular needle. Under direct visualization with fluoroscopy at approximately 15-degree angle, using a 22-gauge 3-1/2-inch spinal needle, the needle was advanced via the skin. The tip of the needle was maneuvered and directed towards the inferior one-third of the posterior SI joint. Once the tip of the needle was at the vicinity of the joint, after negative aspiration for blood or CSF, a total of 1 mL of contrast was injected to confirm correct placement of the needle as well as cephalocaudal spread. Confirmation was obtained on AP as well as oblique view. After repeated negative aspiration and confirmation, a total of 9 mL of preservative-free 0.25% Marcaine with 80 mg of Depo-Medrol was injected in and around the SI joints in divided doses. The needle was then removed intact. The patient experienced no sign or symptoms of intrathecal or intravascular injection. The patient experienced no paresthesia. The procedure was completed without any apparent difficulty or any complications. The patient appeared to tolerate it well. ASSESSMENT AND PLAN: This is a 67-year-old female with sacroiliitis, SI joint dysfunction status post bilateral sacroiliac joint steroid injection under fluoroscopic guidance, patient will continue her current medications, patient will follow in approximately 2 weeks for reevaluation.
== END 2022-08-20 15:13 | disposition home or self-care (01) ==
LOC: SDC 12:08 → AC 13:02
PROVIDERS: PCP Internal Medicine; Referring Provider Anesthesiology Pain Medicine; Visit Provider Anesthesiology Pain Medicine
PROC: 3E0U3GC Introduction of Other Therapeutic Substance into Joints, Percutaneous Approach (ICD-10-PCS; CPT 27096; principal; 2022-08-20 14:00)
DX: M46.1 Sacroiliitis, not elsewhere classified (principal); F20.9 Schizophrenia, unspecified; J45.909 Unspecified asthma, uncomplicated; E78.5 Hyperlipidemia, unspecified; M79.7 Fibromyalgia; K21.9 Gastro-esophageal reflux disease without esophagitis; F32.A Depression, unspecified; Z96.653 Presence of artificial knee joint, bilateral; Z96.612 Presence of left artificial shoulder joint
CPT/HCPCS: 20610; 00640; 76000; 77002; J7120

== ENCOUNTER 2023-05-06 09:01 | Day surgery (SDC) | payer MEDICARE, MEDICAID, SELFPAY ==
[2023-05-06 09:40] VITALS: BP 138/85; PULSE 84; RESP 16; TEMP 36.6; O2SAT 95; BMI 37.8
[2023-05-06] MEDS: Lactated Ringers 1,000 ML 15 ML IV (09:53)
--- NOTE | 2023-05-06 10:00 | RAD_ITS ---
STUDY: RIGHT SACROILIAC JOINT INJECTION. REASON FOR EXAM: Female, 67 years old. BILAT SI JOINT INJECTION FLUOROSCOPY TIME (if supplied): ( 8.4 seconds ) minutes/seconds. 2.73 mGy. One spot film was submitted. TECHNIQUE: Fluoroscopic services provided for right sacroiliac joint injection. COMPARISON: None. RAD/Fluoro Guided Needle Placement IMPRESSION: Fluoroscopic services provided for right sacroiliac joint injection. Electronically Signed: Porfirio Gurrola MD at 13:16 EDT ,
--- NOTE | 2023-05-06 10:00 | RAD_ITS ---
PROCEDURE: Bilateral sacroiliac joint injection. DATE OF EXAMINATION: May 06, 2023. INDICATION: Female, 67 years old. Low back pain. FLUOROSCOPY TIME (if supplied): (8 seconds) minutes/seconds. 2.73 mGy. One image was obtained. RAD/Fluoro Guided Needle Placement IMPRESSION: Intraoperative fluoroscopic imaging provided for bilateral sacroiliac joint injection. Electronically Signed: Porfirio Gurrola MD at 13:15 EDT ,
--- NOTE | 2023-05-06 11:06 | PCM.OPRPT ---
Report of Operation Date of Procedure: 05/06/23 Description of Surgical Findings:: PREOPERATIVE DIAGNOSES: 1.Sacroiliitis. 2.Sacroiliac joint dysfunction. POSTOPERATIVE DIAGNOSES: 1.Sacroiliitis. 2.Sacroiliac joint dysfunction. PROCEDURE PERFORMED: Bilateral sacroiliac joint steroid injection under fluoroscopy guidance. ANESTHESIA: MAC. BLOOD LOSS: Minimal. COMPLICATIONS: None. DESCRIPTION OF PROCEDURE: History and physical of today was reviewed. Risks and benefits of the procedure were explained. The patient understood and agreed to the procedure. Informed consent was obtained. IV inserted per routine protocol. The patient was taken to the operating room and placed in the prone position with a pillow positioned underneath the abdomen. The lower back and buttock area was prepped and draped in a sterile fashion using iodine x3. Under fluoroscopy guidance on an AP view, the bilateral SI joint was visualized. The skin and subcutaneous tissue was anesthetized with approximately 3 mL of 1% lidocaine using a 25-gauge regular needle. Under direct visualization with fluoroscopy at approximately 15-degree angle, using a 22-gauge 3-1/2-inch spinal needle, the needle was advanced via the skin. The tip of the needle was maneuvered and directed towards the inferior one-third of the posterior SI joint. Once the tip of the needle was at the vicinity of the joint, after negative aspiration for blood or CSF, a total of 1 mL of contrast was injected to confirm correct placement of the needle as well as cephalocaudal spread. Confirmation was obtained on AP as well as oblique view. After repeated negative aspiration and confirmation, a total of 9 mL of preservative-free 0.25% Marcaine with 80 mg of Depo-Medrol was injected in and around the SI joints in divided doses. The needle was then removed intact. The patient experienced no sign or symptoms of intrathecal or intravascular injection. The patient experienced no paresthesia. The procedure was completed without any apparent difficulty or any complications. The patient appeared to tolerate it well. ASSESSMENT AND PLAN: This is a 67-year-old female with sacroiliitis, SI joint dysfunction status post bilateral sacroiliac joint steroid injection under fluoroscopic guidance, patient will continue her current medications, patient will follow in approximately 2 weeks for reevaluation.
[2023-05-06] MEDS: Bupivacaine 0.25% 30 ML Vial (11:11)
[2023-05-06] MEDS: MethylPREDNISolone Acetate 80 MG/ML Vial (11:11)
[2023-05-06] MEDS: Lidocaine 1% (5 ml sdv) 5 ML Vial (11:11)
[2023-05-06 11:20] VITALS: BP 113/71; BP 138/85; PULSE 74; RESP 16; TEMP 36.6; O2SAT 100
[2023-05-06 11:25] VITALS: BP 117/62; BP 138/85; PULSE 74; RESP 14; O2SAT 96
[2023-05-06 11:30] VITALS: BP 113/69; BP 138/85; PULSE 74; RESP 16; O2SAT 96
[2023-05-06 11:35] VITALS: BP 133/77; BP 138/85; PULSE 70; RESP 16; TEMP 36.7; O2SAT 96
[2023-05-06 11:50] VITALS: BP 138/85
== END 2023-05-06 12:09 | disposition home or self-care (01) ==
LOC: SDC 09:06 → AC 09:27
PROVIDERS: PCP Internal Medicine; Referring Provider Anesthesiology Pain Medicine; Visit Provider Anesthesiology Pain Medicine
PROC: 3E0U3BZ Introduction of Anesthetic Agent into Joints, Percutaneous Approach (ICD-10-PCS; CPT 64451; principal; 2023-05-06 10:55)
DX: M46.1 Sacroiliitis, not elsewhere classified (principal); F20.9 Schizophrenia, unspecified; M46.96 Unspecified inflammatory spondylopathy, lumbar region; K21.9 Gastro-esophageal reflux disease without esophagitis; E78.5 Hyperlipidemia, unspecified; F32.A Depression, unspecified; Z96.612 Presence of left artificial shoulder joint; Z96.653 Presence of artificial knee joint, bilateral; Z79.891 Long term (current) use of opiate analgesic; M79.10 Myalgia, unspecified site; M51.37 Other intervertebral disc degeneration, lumbosacral region; M43.16 Spondylolisthesis, lumbar region
CPT/HCPCS: 20610; 01991; 76000; 77002; J7120

== ENCOUNTER 2023-09-16 10:50 | Emergency (ER) | payer MEDICARE, MEDICAID, SELFPAY ==
[2023-09-16 10:52] VITALS: BP 144/99; PULSE 97; RESP 14; TEMP 36.8; O2SAT 97; BMI 38.5
[2023-09-16 11:05] VITALS: PULSE 94; RESP 18; O2SAT 97
[2023-09-16 11:06] VITALS: O2SAT 97
--- NOTE | 2023-09-16 11:06 | EKG12_ITS ---
Test Reason : Blood Pressure : / mmHG Vent. Rate : 089 BPM Atrial Rate : 089 BPM P-R Int : 178 ms QRS Dur : 080 ms QT Int : 378 ms P-R-T Axes : 042 016 037 degrees QTc Int : 459 ms Normal sinus rhythm Baseline artifact Probably Normal Confirmed by Gregorio Olivas ([id number]), city editor MIKAYLA WELLS ([id number]) on 09/17/2023 9:26:10 AM Referred By: Confirmed By:Gregorio Olivas
--- NOTE | 2023-09-16 11:14 | ED.VIS.DYS ---
HPI <LACI Gloria - Last Filed: 09/16/23 13:00> History of Present Illness Chief Complaint: Shortness of Breath Narrative Narrative: Patient presenting today with shortness of breath that she has had since Saturday. She reports that she is both short of breath with exertion and at rest. She reports that she has had increased wheezing and has been using her albuterol inhaler more often. She does have a history of asthma and reports that she has required prednisone in the past for symptoms like this. She had an RSV vaccine on Saturday and is concerned that she could be having an allergic reaction. She denies any rash or angioedema. She reports that she has had body aches and a slight cough as well. She denies any fevers, chills, chest pain, abdominal pain, nausea, and vomiting. PE Risk Factors: Negative for Prior DVT or PE, Recent immobilization, Recent surgery or Recent travel <Dr. Vijay Marie DO - Last Filed: 09/16/23 12:59> Narrative Narrative: Patient presenting today with shortness of breath that she has had since Saturday. She reports that she is both short of breath with exertion and at rest. She reports that she has had increased wheezing and has been using her albuterol inhaler more often. She does have a history of asthma and reports that she has required prednisone in the past for symptoms like this. She had an RSV vaccine on Saturday and is concerned that she could be having an allergic reaction. The patient denies recent surgery in the last 4 weeks or immobilization in the last 3 days, denies previous diagnosis of DVT or PE, hemoptysis, unilateral leg swelling or malignancy with treatment the last 6 months or palliative. No estrogen use noted. She denies any rash or angioedema. She reports that she has had body aches and a slight cough as well. She denies any fevers, chills, chest pain, abdominal pain, nausea, and vomiting. [facility] <LACI Gloria - Last Filed: 09/16/23 13:00> [facility] Medical History Arthritis Asthma Back pain Depression Fibromyalgia Gastric reflux History of hiatal hernia Hyperlipemia Non-smoker Schizophrenia Home Medications clonazepam 0.5 mg tablet 0.5 mg PO QHS 09/16/14 [History Last Taken 09/17/19] omeprazole 20 mg capsule,delayed release 20 mg PO DAILY GERD 09/16/14 [History Last Taken 05/06/23] perphenazine 8 mg tablet 8 mg PO QHS Schizophrenia 09/16/14 [History Last Taken 09/17/19] pregabalin 100 mg capsule (Lyrica) 100 mg PO BID PAIN 09/16/14 [History Last Taken 09/18/19] Cholecalciferol (Vitamin D3) [Vitamin D3] 5,000 unit PO DAILY SUPPLEMENT 09/18/19 [History Last Taken 09/17/19] sertraline 100 mg tablet 100 mg PO DAILY DEPRESSION 09/18/19 [History Last Taken 09/17/19] cyclobenzaprine 10 mg tablet 10 mg PO QHS PRN low back spasms 07/06/20 [History Last Taken Unknown] hydrocodone-acetaminophen 5-325mg 5mg-325mg 1 tab PO Q8H 5 days #15 tabs 04/17/22 [Rx Last Taken Unknown] nirmatrelvir 300 mg (150 mg x2)-ritonavir 100 mg tablet,dose pack (Paxlovid) See Rx Instructions PO .COMPLEX #30 tabs 09/16/23 [Rx Last Taken Unknown] prednisone 20 mg tablet 40 mg (2 x 20 mg) PO DAILY 4 days #8 TABLETS 09/16/23 [Rx Last Taken Unknown] Allergy/AdvReac Type Severity Reaction Status Date / Time respiratory syncytial virus Allergy Mild SOB Verified 09/16/23 12:28 vaccine, antigen [From Arexvy (PF)] vaccine adjuvant system, Allergy Mild SOB Verified 09/16/23 12:28 [id number] liposomal [From Arexvy (PF)] Surgical History History of cholecystectomy History of selective injection of anesthetic agent around lumbar nerve root 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 Social History Smoking Status: Never smoker ROS <LACI Gloria - Last Filed: 09/16/23 13:00> ROS ED Constitutional Constitutional ED: Denies chills or fever(s) Cardiovascular Cardiovascular: Denies chest pain or palpitations Respiratory/Chest Respiratory/Chest: Reports cough, dyspnea, dyspnea on exertion and wheezing; Denies tachypnea Gastrointestinal Gastrointestinal: Denies abdominal pain, nausea or vomiting Musculoskeletal Musculoskeletal: Reports other Details: Body aches Integumentary Denies rash Neurologic Neurologic: Denies weakness Allergic/Immunologic Allergic/Immunologic ED: Denies lip swelling, mouth swelling, tongue swelling or urticaria EXAM <Kita Beckwith PA - Last Filed: 09/16/23 13:00> Physical Exam Const Vital Signs: 09/16/23 10:52 09/16/23 11:05 09/16/23 11:06 Temperature 98.2 F Temperature Source Temporal Pulse Rate 97 94 Respiratory Rate 14 18 Respiratory Effort Normal Respiratory Depth Normal Respiratory Pattern Normal Blood Pressure 144/99 H Blood Pressure Mean 114 Pulse Ox 97 97 Oxygen Delivery Method Room Air Room Air Room Air 09/16/23 11:19 09/16/23 11:30 09/16/23 12:53 Temperature Temperature Source Pulse Rate 86 112 H Respiratory Rate 17 18 Respiratory Effort Respiratory Depth Respiratory Pattern Normal Blood Pressure 147/78 H Blood Pressure Mean 101 Pulse Ox 96 Oxygen Delivery Method Room Air Positive well nourished, well developed and no apparent distress General Appearance ED: well developed HEENT Reports normocephalic and head/scalp atraumatic HEENT Narrative: No angioedema. Mouth ED: Yes moist mucous membranes normal Eyes PERRL and EOMs intact bilaterally Neck full ROM and supple Chest Wall inspection of chest normal Resp normal respiratory effort Resp Narrative: Coarse breath sounds and inspiratory and expiratory wheezes throughout. Cardio regular rate and regular rhythm GI soft to palpation, non-tender, non-distended and no masses Back/Spine normal ROM and normal to inspection Extremity normal to inspection and full ROM Neuro oriented x3, CN's II-XII intact bilaterally, moves all extremities, no focal motor deficits and no sensory deficits noted Sensorium / Orientation: awake and alert Psych mental status grossly normal and thought process normal Skin no rashes or lesions noted and no wounds <Dr. Vijay Marie DO - Last Filed: 09/16/23 12:59> Physical Exam Const Vital Signs: 09/16/23 10:52 09/16/23 11:05 09/16/23 11:06 Temperature 98.2 F Temperature Source Temporal Pulse Rate 97 94 Respiratory Rate 14 18 Respiratory Effort Normal Respiratory Depth Normal Respiratory Pattern Normal Blood Pressure 144/99 H Blood Pressure Mean 114 Pulse Ox 97 97 Oxygen Delivery Method Room Air Room Air Room Air 09/16/23 11:19 09/16/23 11:30 09/16/23 12:53 Temperature Temperature Source Pulse Rate 86 112 H Respiratory Rate 17 18 Respiratory Effort Respiratory Depth Respiratory Pattern Normal Blood Pressure 147/78 H Blood Pressure Mean 101 Pulse Ox 96 Oxygen Delivery Method Room Air [facility] <LACI Gloria - Last Filed: 09/16/23 13:00> [facility] Narrative Medical decision making narrative: Patient presenting today with shortness of breath that she has had since Saturday. She does have inspiratory and expiratory wheezes with coarse breath sounds throughout. She has a history of asthma. Examination is consistent with an asthma exacerbation. However, labs will be obtained to rule out ACS. COVID, influenza, and RSV swab will be obtained. She is not hypoxic, vitals are unremarkable. She is well-appearing and in no acute distress. She will be given Solu-Medrol and breathing treatments. Patient is positive for COVID-19. Chest x-ray does not show any infiltrate or acute findings. She was ambulated and did well, she did not become hypoxic. I did discuss outpatient therapy versus admission, patient does think that she will be able to do well at home and would like a prescription for Paxlovid, this will be given. I did recommend that she stop her rosuvastatin while taking this medication and for 2 to 3 days afterwards as well as to reduce her dose of clonazepam given potential drug interactions. She has been given strict return instructions and will be discharged home in stable condition. She also be given a prescription for prednisone for her asthma exacerbation. Lab Data Attestation: I reviewed the patient's lab results. Lab results narrative: WBC 3.7, H&H 11.8 and 36.7, troponin 4 Labs: Laboratory Results - last 24 hr 09/16/23 11:15 WBC 3.7 L RBC 4.31 Hgb 11.8 L Hct 36.7 L MCV 85.2 MCH 27.4 MCHC 32.2 RDW Std Deviation 43.9 RDW Coeff of Dudley 14.1 Plt Count 164 MPV 10.9 Immature Gran % (Auto) 0.300 Neut % (Auto) 46.8 L Lymph % (Auto) 35.8 Granite % (Auto) 13.1 H Eos % (Auto) 3.5 Baso % (Auto) 0.5 Absolute Neuts (auto) 1.8 L Absolute Lymphs (auto) 1.34 Nucleated RBC % 0 Sodium 144 Potassium 3.5 Chloride 112 H Carbon Dioxide 25.0 Anion Gap 7 BUN 11 Creatinine 0.97 Estim Creat Clear Calc 61.55 Est GFR (MDRD) Af Amer 74 Est GFR (MDRD) Non-Af 61 BUN/Creatinine Ratio 11.4 Glucose 119 H Calcium 9.0 Troponin I High Sens 4 Radiography Diagnostic Testing: Clinical Impression(s) from Imaging Studies Chest X-Ray 09/16/23 11:45 IMPRESSION: Mild degree of increased linear markings at the lung bases suggests subsegmental atelectasis and/or scarring. Large hiatal hernia. Electronically Signed: Porfirio Gurrola MD at 12:03 EST , EKG Initial EKG: Comments: 89 bpm, normal sinus rhythm, no ST elevation, reviewed and interpreted by attending ED physician <Dr. Vijay Marie, DO - Last Filed: 09/16/23 12:59> [facility] Lab Data Labs: Laboratory Results - last 24 hr 09/16/23 11:15 WBC 3.7 L RBC 4.31 Hgb 11.8 L Hct 36.7 L MCV 85.2 MCH 27.4 MCHC 32.2 RDW Std Deviation 43.9 RDW Coeff of Dudley 14.1 Plt Count 164 MPV 10.9 Immature Gran % (Auto) 0.300 Neut % (Auto) 46.8 L Lymph % (Auto) 35.8 Granite % (Auto) 13.1 H Eos % (Auto) 3.5 Baso % (Auto) 0.5 Absolute Neuts (auto) 1.8 L Absolute Lymphs (auto) 1.34 Nucleated RBC % 0 Sodium 144 Potassium 3.5 Chloride 112 H Carbon Dioxide 25.0 Anion Gap 7 BUN 11 Creatinine 0.97 Estim Creat Clear Calc 61.55 Est GFR (MDRD) Af Amer 74 Est GFR (MDRD) Non-Af 61 BUN/Creatinine Ratio 11.4 Glucose 119 H Calcium 9.0 Troponin I High Sens 4 Radiography X-Ray: Read by ED Physician Diagnostic Testing: Clinical Impression(s) from Imaging Studies Chest X-Ray 09/16/23 11:45 IMPRESSION: Mild degree of increased linear markings at the lung bases suggests subsegmental atelectasis and/or scarring. Large hiatal hernia. Electronically Signed: Porfirio Gurrola MD at 12:03 EST , I have personally reviewed the patient's chest x-ray. Chest x-ray is unremarkable for pulmonary edema, pneumothorax, pneumonia or focal cardiopulmonary abnormality. Treatment and Re-Evaluation :: ED attending note: I evaluated the patient in conjunction with the VERONICA. I agree with his/her statements and above findings. I have personally performed a face to face assessment of the patient and have reviewed the VERONICA Note. I performed a substantive portion of the visit including all aspects of the following. I personally saw the patient performed chart review, physical exam, reviewed labs, imaging (if obtained), and formulated a treatment and management plan. The synthesis of the patient's history, physical exam, labs images suggest COVID-19 induced asthma exacerbation. Low suspicion for PE as patient low risk Wells score. No indication for D-dimer or CT at this time. Patient was ambulated here without significant hypoxia she did become tachycardic however she was functionally okay. Had a shared decision-making discussion with the patient. Offered inpatient admission for observation however patient refused stating she like to go home and try Paxlovid. Patient was discharged stable condition. Strict return precautions were discussed. This note was generated with [employer] dictation software. It may contain incorrect words, spelling, and punctuation that were not noted in review of the chart prior to signing. Discharge Plan Triage Chief Complaint: Shortness of Breath ED Midlevel Provider: Kita Beckwith ED Provider: Vijay Marie Dx/Rx/DC Orders Clinical Impression: COVID-19, Asthma exacerbation Instructions: Coronavirus Disease 2019 (COVID-19): Caring for Yourself or Others Prescriptions: New Paxlovid 300 mg (150 mg x 2)-100 mg tablets,dose pack See Rx Instructions .ROUTE .COMPLEX Qty: 30 0RF Rx Instructions: take TWO 150 mg tablets of nirmatrelvir with ONE 100 mg tablet of ritonavir twice daily for 5 days prednisone 20 mg tablet 40 mg PO DAILY 4 Days Qty: 8 0RF No Action clonazepam 0.5 MG tablet 0.5 mg PO QHS Patient Comments: ANXIETY/SLEEP omeprazole 20 MG capsule 20 mg PO DAILY Patient Comments: ACID REFLUX perphenazine 8 MG tablet 8 mg PO QHS Patient Comments: ANTI-PSYCHOTIC pregabalin [Lyrica] 100 MG capsule 100 mg PO BID Patient Comments: NERVE PAIN sertraline 100 MG tablet 100 mg PO DAILY Cholecalciferol (Vitamin D3) [Vitamin D3] 5,000 UNIT capsule 5,000 unit PO DAILY cyclobenzaprine 10 MG tablet 10 mg PO QHS PRN (Reason: low back spasms) hydrocodone-acetaminophen 5-325 mg tablet 1 tab PO Q8H 5 Days Qty: 15 0RF Primary Care Provider: Nisa Jolley Referrals: Nisa Jolley MD [Primary Care Provider] - Activity Restrictions/Additional Instructions: Start the Paxlovid today, you can start the prednisone tomorrow. Discontinue the rosuvastatin while taking the Paxlovid and for 2 to 3 days after taking it. You can reduce your dose of the clonazepam while taking Paxlovid. Return for any worsening of your symptoms. Disposition Disposition: Home, Self Care
[2023-09-16] MEDS: Ipratropium/Albuterol Sulfate 3 ML AMPUL.NEB INHALATION (11:18)
[2023-09-16] MEDS: Albuterol 2.5 MG/3 ML VIAL.NEB. INHALATION ×3 (11:18)
[2023-09-16 11:19] VITALS: PULSE 86; RESP 17
[2023-09-16] MEDS: MethylPREDNISolone 125 MG/2 ML Vial IV (11:26)
[2023-09-16 11:28] LABS: Absolute Lymphocyte Count 1.34 X10^3/uL (0.83-4.51); Absolute Neutrophil Count 1.8 X10^3/uL (2.0-7.7); Basophil# 0.02 X10^3/uL; Basophil% 0.5 % (0-1); Eosinophil# 0.13 X10^3/uL; Eosinophils% 3.5 % (0-5); Hematocrit 36.7 % (37-47); Hemoglobin 11.8 g/dL (12.0-15.0); Lymphocyte # 1.34 X10^3/ul (0.83-4.51); Lymphocyte % 35.8 % (19-41); Mean Corp Hgb Conc 32.2 g/dL (32-36); Mean Corpuscular Hgb 27.4 pg (27.0-32.0); Mean Corpuscular Volume 85.2 fL (81-99); Mean Platelet Vol. 10.9 fl (6.2-12.0); Monocyte# 0.49 X10^3/uL; Monocyte% 13.1 % (0-10); NRBC Flagged by Analyzer 0 % (0-5); Neutrophil # 1.75 X10^3/uL (2.7-7.7); Neutrophil % 46.8 % (47-70); Platelet Count 164 K/mm3 (150-450); RBC Distribution Width CV 14.1 % (11.6-14.6); RBC Distribution Width SD 43.9 fl (35.1-43.9); Red Blood Count 4.31 M/mm3 (4.2-5.4); White Blood Count 3.7 K/mm3 (4.4-11.0)
--- NOTE | 2023-09-16 11:45 | RAD_ITS ---
STUDY: X-RAY CHEST REASON FOR EXAM: Female, 68 years old. Cough and shortness of breath. TECHNIQUE: PA and lateral views of the chest. COMPARISON: None. FINDINGS: EKG electrodes are seen. Mild increased markings at the lung bases suggestive of either linear scarring and/or atelectasis. There is no demonstrated pleural abnormality. Normal size heart. Normal mediastinum and sandeep. Normal visualized pulmonary arteries. There is atherosclerotic calcification of the aortic arch with tortuosity. There are degenerative changes of the visualized thoracic spine. Status post bilateral shoulder replacement. Large hiatal hernia. RAD/Chest PA and Lateral IMPRESSION: Mild degree of increased linear markings at the lung bases suggests subsegmental atelectasis and/or scarring. Large hiatal hernia. Electronically Signed: Porfirio Gurrola MD at 12:03 EST ,
[2023-09-16 11:46] LABS: Anion Gap 7 (5-15); BUN 11 mg/dL (7-18); BUN/Creat Ratio 11.4 RATIO (10-20); Chloride 112 mmol/L (98-107); Creatinine, Serum 0.97 mg/dL (0.55-1.02); EST Glomerular Filtration Rate 61 mL/min (>60); Est Glom Filt Rate - Afr Amer 74 mL/min (>60); Estimated Creatinine Clearance 61.55 ml/min; Glucose 119 mg/dL (74-106); Potassium 3.5 mmol/L (3.5-5.1); Sodium Level 144 mmol/L (136-145); Troponin-I HS 4 pg/mL (3.0-54.0)
--- OUTSIDE RECORDS SUMMARY | 2023-09-16 12:29 | XMS RPT_ITS | CCD ---
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 Name Role Phone Shola TANNER, Paulina Sands Primary Care Provider TALAMPAS, PAULINA D Primary Care Unavailable TALAMPAS, PAULINA D Attending Unavailable TALAMPAS, PAULINA D Primary Care Unavailable TALAMPAS, PAULINA D Referring Unavailable TALAMPAS, PAULINA D Primary Care Unavailable TALAMPAS, PAULINA D Referring Unavailable OHARA, AN Attending Unavailable TALAMPAS, PAULINA D Primary Care Unavailable TALAMPAS, PAULINA D Primary Care Unavailable TALAMPAS, PAULINA D Attending Unavailable TALAMPAS, PAULINA D Primary Care Unavailable TALAMPAS, PAULINA D Referring Unavailable TALAMPAS, PAULINA D Primary Care Unavailable TALAMPAS, PAULINA D Referring Unavailable OHARA, AN Attending Unavailable TALAMPAS, PAULINA D Primary Care Unavailable TALAMPAS, PAULINA D Primary Care Unavailable Allergies Allergy Classification Reported Allergen(s) Allergy Type Date of Onset Reaction(s) Facility (20 sources) Seasonal allergy; Translations: [SEASONAL ALLERGIES] Allergy to substance 2 Other: See Comments [facility] Medications Current Medications Medication Drug Class(es) Dates Sig (Normalized) Sig (Original) azithromycin 250 mg oral tablet (2 sources) Macrolide Antimicrobial Start: 07-16-2023 End: 07-21-2023 azithromycin (ZITHROMAX Z-DOMINIC) 250 mg tablet Indications: Mild intermittent asthma without complication , Exacerbation of asthma, unspecified asthma severity, unspecified whether persistent Take 2 tablets day one, then, 1 tablet daily until gone. 6 tablet 0 07/16/2023 07/21/2023 Active Completed/Discontinued Medications Medication Drug Class(es) Dates Sig (Normalized) Sig (Original) albuterol 0.83 mg/ml inhalation solution (20 sources) beta2-Adrenergic Agonist Start: 10-24-2021 End: 11-19-2022 take 2 puff(s) by inhalation every four hours as needed for wheezing albuterol HFA (VENTOLIN HFA) 90 mcg/actuation inhaler Inhale 2 Puffs as instructed every 4 hours as needed for wheezing/shortnes s of breath. 1 Each 2 11/19/2022 Active Problems Active Problems Problem Classification Problem Date Documented Date Episodic/Chronic Anxiety disorders (20 sources) Posttraumatic stress disorder; Translations: [Post-traumatic stress disorder, unspecified] Onset: 05-05-2013 07-31-2021 Chronic Asthma (20 sources) Exacerbation of asthma; Translations: [Unspecified asthma with (acute) exacerbation] Onset: 06-03-2007 Chronic Coma; stupor; and brain damage (1 source) Daytime somnolence; Translations: [Somnolence] 09-12-2023 Episodic Disorders of lipid metabolism (20 sources) Mixed hyperlipidemia; Translations: [Mixed hyperlipidemia] Onset: 02-09-2010 Chronic Esophageal disorders (20 sources) Gastroesophageal reflux disease; Translations: [Gastro-esophageal reflux disease without esophagitis] Onset: 06-03-2007 10-10-2009 Chronic Genitourinary symptoms and ill-defined conditions (1 source) Total urinary incontinence; Translations: [Continuous leakage] Chronic Mood disorders (20 sources) Depressive disorder; Translations: [Depression] Onset: 07-24-2013 09-22-2019 Chronic Neoplasms of unspecified nature or uncertain behavior (1 source) 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; Translations: [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] Episodic Nutritional deficiencies (20 sources) Vitamin D deficiency; Translations: [Vitamin D deficiency, unspecified] Onset: 06-03-2007 07-04-2015 Chronic Osteoarthritis (20 sources) Osteoarthritis of knee; Translations: [Unilateral primary osteoarthritis, unspecified knee] Onset: 08-26-2014 07-31-2021 Chronic Other connective tissue disease (1 source) History of total knee arthroplasty; Translations: [Presence of artificial knee joint, bilateral] Chronic Other lower respiratory disease (1 source) Acute lower respiratory tract infection; Translations: [Unspecified acute lower respiratory infection] Episodic Other lower respiratory disease (1 source) Apnea; Translations: [Apnea, not elsewhere classified] 09-12-2023 Episodic Other lower respiratory disease (1 source) Snoring; Translations: [Snoring] 09-12-2023 Episodic Other nervous system disorders (1 source) Other chronic pain; Translations: [Chronic bilateral low back pain with bilateral sciatica] Onset: 02-26-2023 Chronic Other nutritional; endocrine; and metabolic disorders (19 sources) Obesity; Translations: [Other obesity due to excess calories] Onset: 06-03-2007 09-22-2019 Chronic Other nutritional; endocrine; and metabolic disorders (12 sources) Obesity caused by energy imbalance; Translations: [Other obesity due to excess calories] Onset: 06-03-2007 09-22-2019 Chronic Other nutritional; endocrine; and metabolic disorders (1 source) Hypermagnesemia; Translations: [Hypermagnesemia] 09-04-2023 Chronic Other nutritional; endocrine; and metabolic disorders (1 source) Other obesity due to excess calories; Translations: [Class 2 obesity due to excess calories with body mass index (BMI) of 37.0 to 37.9 in adult, unspecified whether serious comorbidity present] Onset: 02-26-2023 Chronic Other nutritional; endocrine; and metabolic disorders (1 source) Body mass index (BMI) 37.0-37.9, adult; Translations: [Class 2 obesity due to excess calories with body mass index (BMI) of 37.0 to 37.9 in adult, unspecified whether serious comorbidity present] Onset: 02-26-2023 Chronic Other upper respiratory disease (5 sources) Seasonal allergic rhinitis; Translations: [Other seasonal allergic rhinitis] Chronic Other upper respiratory disease (20 sources) Allergic rhinitis; Translations: [Allergic rhinitis, unspecified] Onset: 06-03-2007 04-04-2020 Chronic Other upper respiratory disease (1 source) Other seasonal allergic rhinitis; Translations: [Seasonal allergic rhinitis, unspecified trigger] Onset: 04-04-2020 Chronic Residual codes; unclassified (20 sources) Obstructive sleep apnea syndrome; Translations: [Obstructive sleep apnea (adult) (pediatric)] Onset: 01-12-2016 01-12-2016 Chronic Residual codes; unclassified (1 source) Past history of procedure; Translations: [Other specified postprocedural states] Episodic Schizophrenia and other psychotic disorders (20 sources) Schizophrenia; Translations: [Schizophrenia, unspecified] Onset: 05-05-2013 07-31-2021 Chronic Spondylosis; intervertebral disc disorders; other back problems (20 sources) Degeneration of cervical intervertebral disc; Translations: [Other cervical disc degeneration, unspecified cervical region] Onset: 10-30-2013 10-30-2013 Chronic Superficial injury; contusion (1 source) Contusion of right knee; Translations: [Contusion of right knee, subsequent encounter] Episodic Past or Other Problems Problem Classification Problem Date Documented Da te Episodic/Chronic Allergic reactions (20 sources) Solar degeneration; Translations: [Other skin changes due to chronic exposure to nonionizing radiation] Onset: 03-29-2012 03-29-2012 Episodic Deficiency and other anemia (20 sources) Anemia; Translations: [Anemia, unspecified] Onset: 06-12-2007 06-02-2013 Episodic Diabetes mellitus without complication (20 sources) Disorder of glucose metabolism; Translations: [Other abnormal glucose] Onset: 10-12-2020 10-12-2020 Episodic Immunizations and screening for infectious disease (20 sources) Mantoux: positive; Translations: [Nonspecific reaction to tuberculin skin test without active tuberculosis] Onset: 11-12-2009 11-12-2009 Episodic Other aftercare (1 source) Other senior living (current) drug therapy; Translations: [Encounter for long-term current use of medication] Onset: 02-26-2023 Episodic Other and unspecified benign neoplasm (20 sources) Melanocytic nevus of trunk; Translations: [Melanocytic nevi of trunk] Onset: 03-29-2012 03-29-2012 Episodic Other bone disease and musculoskeletal deformities (20 sources) Disorder of skeletal system; Translations: [Disorder of bone, unspecified] Onset: 06-03-2007 06-02-2013 Episodic Other connective tissue disease (20 sources) Fibromyalgia; Translations: [Fibromyalgia] Onset: 06-03-2007 06-26-2016 Episodic Other connective tissue disease (20 sources) Unspecified rotator cuff tear or rupture of unspecified shoulder, not specified as traumatic; Translations: [Rotator cuff (capsule) sprain] Onset: 07-24-2013 07-24-2013 Episodic Other connective tissue disease (20 sources) Adhesive capsulitis of shoulder; Translations: [Adhesive capsulitis of unspecified shoulder] Onset: 07-24-2013 07-24-2013 Episodic Other screening for suspected conditions (not mental disorders or infectious disease) (13 sources) Patient encounter status; Translations: [Encounter for screening mammogram for malignant neoplasm of breast] Onset: 01-11-2023 Episodic Other skin disorders (20 sources) Seborrheic keratosis; Translations: [Other seborrheic keratosis] Onset: 03-29-2012 03-29-2012 Episodic Other skin disorders (20 sources) Solar lentigo; Translations: [Other melanin hyperpigmentation] Onset: 03-29-2012 03-29-2012 Episodic Spondylosis; intervertebral disc disorders; other back problems (20 sources) Lumbago with sciatica; Translations: [Lumbago with sciatica, unspecified side] Onset: 01-20-2018 01-20-2018 Episodic Results Test Name Value Interpretation Reference Range Facil ity Vital Signs Date Time Vital Sign Value Performing Clinician Faci lity 09-04-2023 10:19-0500 Body height 157.5 cm Paulina Jolley MD Work Phone: [facility] 09-04-2023 10:19-0500 Body temperature 97.3 [degF] Paulina Jolley MD Work Phone: [facility] 09-04-2023 10:19-0500 Body weight 95.71 kg Paulina Jolley MD Work Phone: [facility] 09-04-2023 10:19-0500 Diastolic blood pressure 80 mm[Hg] Paulina Jolley MD Work Phone: [facility] 09-04-2023 10:19-0500 Heart rate 95 /min Paulina Jolley MD Work Phone: [facility] 09-04-2023 10:19-0500 Respiratory rate 12 /min Paulina Jolley MD Work Phone: [facility] 09-04-2023 10:19-0500 SaO2% (BldA) [Mass fraction] 98 % Paulina Jolley MD Work Phone: [facility] 09-04-2023 10:19-0500 Systolic blood pressure 138 mm[Hg] Paulina Jolley MD Work Phone: [facility] 07-16-2023 13:48-0500 Body temperature 98.91 [degF] An Ohara DINING MANAGER.PANEL MAKER Work Phone: [facility] 07-16-2023 13:48-0500 Body weight 92.53 kg An Ohara DINING MANAGER.PANEL MAKER Work Phone: [facility] 07-16-2023 13:48-0500 Diastolic blood pressure 83 mm[Hg] An Ohara DINING MANAGER.PANEL MAKER Work Phone: [facility] 07-16-2023 13:48-0500 Heart rate 107 /min An Ohara DINING MANAGER.PANEL MAKER Work Phone: [facility] 07-16-2023 13:48-0500 Respiratory rate 16 /min An Ohara DINING MANAGER.PANEL MAKER Work Phone: [facility] 07-16-2023 13:48-0500 SaO2% (BldA) [Mass fraction] 97 % An Ohara DINING MANAGER.PANEL MAKER Work Phone: [facility] 07-16-2023 13:48-0500 Systolic blood pressure 137 mm[Hg] An Ohara DINING MANAGER.PANEL MAKER Work Phone: [facility] 06-26-2022 09:58-0500 Body weight 91.63 kg Paulina Jolley MD Work Phone: [facility] 06-26-2022 09:58-0500 Diastolic blood pressure 82 mm[Hg] Paulina Jolley MD Work Phone: [facility] 06-26-2022 09:58-0500 Heart rate 79 /min Paulina Jolley MD Work Phone: [facility] 06-26-2022 09:58-0500 SaO2% (BldA) [Mass fraction] 97 % Paulina Jolley MD Work Phone: [facility] 06-26-2022 09:58-0500 Systolic blood pressure 122 mm[Hg] Paulina Jolley MD Work Phone: [facility] 04-25-2022 13:46-0400 Body height 157.5 cm Jenifer Sauer MD Work Phone: [facility] 04-25-2022 13:46-0400 Body temperature 96.49 [degF] Jenifer Sauer MD Work Phone: [facility] 04-25-2022 13:46-0400 Body weight 92.08 kg Jenifer Sauer MD Work Phone: [facility] 04-25-2022 13:46-0400 Diastolic blood pressure 88 mm[Hg] Jenifer Sauer MD Work Phone: [facility] 04-25-2022 13:46-0400 Heart rate 120 /min Jenifer Sauer MD Work Phone: [facility] 04-25-2022 13:46-0400 SaO2% (BldA) [Mass fraction] 95 % Jenifer Sauer MD Work Phone: [facility] 04-25-2022 13:46-0400 Systolic blood pressure 155 mm[Hg] Jenifer Sauer MD Work Phone: [facility] 03-23-2022 15:05-0400 Body height 157.5 cm Jenifer Sauer MD Work Phone: [facility] 03-23-2022 15:05-0400 Body temperature 99.1 [degF] Jenifer Sauer MD Work Phone: [facility] 03-23-2022 15:05-0400 Body weight 93.89 kg Jenifer Sauer MD Work Phone: [facility] 03-23-2022 15:05-0400 Diastolic blood pressure 86 mm[Hg] Jenifer Sauer MD Work Phone: [facility] 03-23-2022 15:05-0400 Heart rate 114 /min Jenifer Sauer MD Work Phone: [facility] 03-23-2022 15:05-0400 SaO2% (BldA) [Mass fraction] 95 % Jenifer Sauer MD Work Phone: [facility] 03-23-2022 15:05-0400 Systolic blood pressure 142 mm[Hg] Jenifer Sauer MD Work Phone: [facility] 02-16-2022 15:04-0400 Body height 157.5 cm Jenifer Sauer MD Work Phone: [facility] 02-16-2022 15:04-0400 Body temperature 97.59 [degF] Jenifer Sauer MD Work Phone: [facility] 02-16-2022 15:04-0400 Body weight 93.44 kg Jenifer Sauer MD Work Phone: [facility] 02-16-2022 15:04-0400 Diastolic blood pressure 90 mm[Hg] Jenifer Sauer MD Work Phone: [facility] 02-16-2022 15:04-0400 Heart rate 115 /min Jenifer Sauer MD Work Phone: [facility] 02-16-2022 15:04-0400 SaO2% (BldA) [Mass fraction] 95 % Jenifer Sauer MD Work Phone: [facility] 02-16-2022 15:04-0400 Systolic blood pressure 126 mm[Hg] Jenifer Sauer MD Work Phone: [facility] 10-24-2021 10:02-0400 Diastolic blood pressure 78 mm[Hg] Paulina Jolley MD Work Phone: [facility] 10-24-2021 10:02-0400 Systolic blood pressure 128 mm[Hg] Paulina Jolley MD Work Phone: [facility] 10-24-2021 09:20-0400 Body weight 90.27 kg Paulina Jolley MD Work Phone: [facility] 10-24-2021 09:20-0400 Heart rate 100 /min Paulina Jolley MD Work Phone: [facility] Encounters Encounter Date Encounter Type Care Provider Facility Start: 09-06-2023 Telephone encounter Paulina levi MD Work Phone: [facility] Procedures Date Procedure Procedure Detail Performing Clinician Start: 08-15-2023 Lipid 1996 panel - S john or Plasma Paulina Jolley MD Work Phone: Start: 05-18-2023 PFIZER-BIONTECH COVI D-19 VACCINE ( SEASON) AGE 12+ YR Paulina Jolley MD Work Phone: Start: 05-18-2023 INFLUENZA VACCINE, P RSV FREE, AGE 65+ YR, HIGH DOSE, QUADRIVALENT (FLUZONE HIGH-DOSE) Paulina Jolley MD Work Phone: Start: 02-21-2023 Lipid 1996 panel - S john or Plasma Immunization [facility] Work Phone: Start: 01-11-2023 Screening digital br [place] [facility] Paulina Jolley MD Work Phone: Start: 06-26-2022 PFIZER-BIONTECH COVI D-19 BIVALENT BOOSTER VACCINE, AGE 12+ YR Paulina Jolley MD Work Phone: Start: 06-26-2022 INFLUENZA SEASONAL QUADRIVALENT HIGH DOSE AGE 65+ Paulina Jolley MD Work Phone: Start: 02-14-2022 Us breast uni real t beth with image limited Paulina Jolley MD Work Phone: Start: 02-14-2022 SEE DIAG W EDUARDO LT Paulina Jolley MD Work Phone: Start: 01-09-2022 Mammography Mammograph y Coordinator Start: 12-22-2020 Mammography Paulina galvez MD Work Phone: Start: 04-28-2014 Colonoscopy Paulina galvez MD Work Phone: Plan of Treatment Date Care Activity Detail Author Start: 02-26-2030 Urine microalbumin profile [facility] Start: 08-15-2028 Lipid panel Lipid Screening [facility] Start: 02-22-2028 Lipid 1996 panel - Serum or Plasma Lipid Screening [facility] Start: 02-22-2028 Lipid panel Lipid Screening [facility] Start: 06-19-2027 LIPID SCREEN LIPID SCREEN [facility] Start: 12-25-2026 LIPID SCREEN LIPID SCREEN [facility] Start: 10-17-2026 LIPID SCREEN LIPID SCREEN [facility] Start: 08-15-2026 Diabetes Screening Diabetes Screening [facility] Start: 02-21-2026 Diabetes Screening Diabetes Screening [facility] Start: 06-19-2025 DIABETES SCREEN DIABETES SCREEN [facility] Start: 10-17-2024 DIABETES SCREEN DIABETES SCREEN [facility] Start: 09-04-2024 Annual PCP Team Chronic Disease Visit Annual PCP Team Chronic Disease Visit [facility] Start: 04-28-2024 Colonoscopy COLONOSCOPY [facility] Start: 04-28-2024 COLORECTAL CANCER SCREENING COLORECTAL CANCER SCREENING [facility] Start: 04-28-2024 Screening for malignant neoplasm of colon [facility] Start: 03-04-2024 End: 06-03-2024 25-hydroxyvitamin D3 [Mass/volume] in Serum or Plasma VITAMIN D 25 HYDROXY Lab Routine Vitamin D deficiency Encounter for long-term current use of medication Expected: 03/04/2024 (Approximate), Expires: 06/03/2024 [facility] Work Phone: Immunizations Immunization Date Immunization Notes Care Provider Fa nick 05-18-2023 COVID-19 vaccine, ag e 12+ yr, season (PFIZER-BIONTECH) Immunization [place] Work Phone: [facility] Work Phone: 05-18-2023 influenza (HD-IIV4) vaccine, age 65+ yr, high dose, quadrivalent, PF (FLUZONE HIGH-DOSE) Immunization [place] Work Phone: [facility] 02-26-2023 pneumococcal (PCV20) vaccine, 20 valent (PREVNAR 20) Immunization [place] Work Phone: [facility] 06-26-2022 COVID-19 booster vaccine, age 12+ yr, bivalent (PFIZER-BIONTECH) Paulina Jolley MD Work Phone: [facility] 06-26-2022 influenza, high-dose , quadrivalent vaccine (FLUZONE HIGH DOSE QUADRIVALENT) Paulina Jolely MD Work Phone: [facility] 04-29-2021 Influenza, injectabl e, Madin Latasha Canine Kidney, preservative free, quadrivalent Paulina Jolley MD Work Phone: [facility] Work Phone: 04-29-2021 influenza, seasonal, injectable Paulina Jolley MD Work Phone: [facility] Work Phone: 06-18-2020 zoster vaccine recombinant Paulina Jolley MD Work Phone: [facility] Work Phone: 04-10-2020 influenza, seasonal, injectable Paulina Jolley MD Work Phone: [facility] Work Phone: 02-27-2020 tetanus toxoid, redu michael diphtheria toxoid, and acellular pertussis vaccine, adsorbed Paulina Jolley MD Work Phone: [facility] Work Phone: 02-27-2020 zoster vaccine recombinant Paulina Jolley MD Work Phone: [facility] Work Phone: 07-14-2019 pneumococcal conjuga te vaccine, 13 valent Paulina Jolley MD Work Phone: [facility] Work Phone: 06-22-2019 influenza, injectabl e, quadrivalent, preservative free Paulina Jolley MD Work Phone: [facility] 11-26-2018 measles, mumps and rubella virus vaccine Paulina Jolley MD Work Phone: [facility] 07-21-2018 influenza, injectabl e, quadrivalent, contains preservative Paulina Jolley MD Work Phone: [facility] 07-10-2017 influenza, injectabl e, quadrivalent, contains preservative Paulina Jolley MD Work Phone: [facility] 06-26-2016 influenza, injectabl e, quadrivalent, contains preservative Paulina Jolley MD Work Phone: [facility] 11-30-2015 influenza, injectabl e, quadrivalent, contains preservative Paulina Jolley MD Work Phone: [facility] 06-15-2014 influenza, seasonal, injectable Paulina Jolley MD Work Phone: [facility] 05-22-2013 influenza virus vaccine, unspecified formulation Paulina Jolley MD Work Phone: [facility] 01-23-2013 pneumococcal polysaccharide vaccine, 23 valent Paulina Jolley MD Work Phone: [facility] Work Phone: 05-11-2007 tetanus and diphther ia toxoids, not adsorbed, for adult use Paulina Jolley MD Work Phone: [facility] Work Phone: Payers Date Payer Category Payer Medicaid [facility] MEDICAID [facility] ARE [facility] MEDICAID [id number] 2021-Present [phone] [address] [place] [address] Medicaid [id number] 2021 Medicare [id number] 2021 Medicare [facility] MEDICARE MYC ARE [facility] MEDICARE [id number] 2021-Present [phone] [address] [place] [address] Medicare [id number] 2021 Medicare [id number] Social History Date Type Detail Facility Start: 07-24-2013 Tobacco smoking stat us PRIS Never smoked tobacco [facility] Work Phone: Start: 10-24-2021 End: 09-04-2023 Alcohol intake Current non-drinker of alcohol (finding) [facility] Start: 12-12-2021 End: 10-08-2022 History SDOH Alcohol Frequency 1 [facility] Start: 12-12-2021 End: 10-08-2022 History SDOH Social Connections Phone 5 [facility] Start: 12-12-2021 History SDOH Social Connections Get Together 4 [facility] Start: 12-12-2021 End: 10-08-2022 History SDOH Social Connections Jewish 3 [facility] Start: 12-12-2021 End: 10-08-2022 History SDOH Social Connections Meetings 2 [facility] Start: 1955 Sex Assigned At Female C [facility] Start: 12-02-2021 End: 06-19-2022 Exposure to SARS-CoV-2 (event) Not sure [facility] Work Phone: Start: 02-09-2022 End: 02-19-2022 Exposure to SARS-CoV-2 (event) Unable to assess [facility] Start: 07-24-2013 Tobacco use and exposure Smoke less tobacco non-user [facility] Start: 10-08-2022 History SDOH Alcohol Std Drinks 0 [facility] Start: 10-08-2022 End: 01-11-2023 History of Social function [facility] Start: 10-08-2022 End: 01-11-2023 Social connection and isolation panel [facility] Do you belong to any clubs or organizations such as jain groups, unions, fraternal or athletic groups, or school groups? No [facility] Are you now , , , , never or living with a partner? [facility] How often to you hav e a drink containing alcohol? Never [facility] How many standard dr inks containing alcohol do you have on a typical day? Patient does not drink [facility] Do you feel stress - tense, restless, nervous, or anxious, or unable to sleep at night because your mind is troubled all the time - these days [OSQ] Only a little [facility] (I/We) worried wheth er (my/our) food would run out before (I/we) got money to buy more. Never true [facility] Start: 12-22-2020 Gender identity Identifies as female gender (finding) [facility] Clinical Notes 09-21-2019 to 09-13-2023 Telephone Encounter - Gisella Jung LPN - 09/13/2023 9:28 AM ESTTelephone Encounter - Ellen Gomez LPN - 09/12/2023 4:14 PM Paulina Bailey MD - 09/04/2023 10:43 AM EST Note Date & Type Note [facility] 09-13-2023 Miscellaneous Notes Order faxed as requested. Sleep study order form at nurse's pod for signature. Need [facility] order to complete and fax. See completed progress note for diagnoses. Also check with sleep lab if could do just a titration study or if needs PSG since has been over 5 years since last PSG done and patient had stopped using CPAP. Pt reports she and pcp discussed at her last appt, her need for sleep study, due to snoring and stops breathing in sleep, and has not worn her cpap for the last 5-10 years. Asking pcp to fax sleep study order to [facility]: fax # [phone]. Reports [facility] sleep lab will call her to schedule once order is received. documented in this encounter [facility] 09-04-2023 Note HNO ID: [id number] Author: PAULINA JOLLEY MD Service: ? Author Type: Physician Type: Progress Notes Filed: 09/12/2023 00:48 Note Text: This note was created using [employer]. Subjective Ewelina Roa is a 68 year old female. Patient presents with: F/U 6 months: handicap placard and license plate, needs new nebulizer SUBJECTIVE: Ewelina Roa is a 68 year old year old lady here today for 6 month follow up appointment for review of medical conditions. Was eating more bananas--did not know was a starch. Did cut out already. Is doing regular walking though limited. Needs new nebulizer--hers is 23 years old. For asthma. Has plenty of the albuterol and atrovent. Lyrica still helping for chronic pain. Getting SI joint injections about every [address] Youssef in [place]. Noted due for colonoscopy this year. Father diagnosed with stage 3 colon cancer this year. Noted had prior EGD--esophagitis. Requests sleep study. witnessed apnea and loud snoring. She has known diagnosis of CPAP and was on 7 but stopped using CPAP away because had water damage years ago. Paid for last CPAP. Has been about 5 years since last used CPAP. Needs new PSG. Still needs to get HCDPOA and LW. is surrogate decision maker PAST MEDICAL HISTORY Diagnosis Date Allergic rhinitis allergy injections; Dr. 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 albuterol (PROVENTIL) 2.5 mg /3 mL (0.083 %) nebulizer solution Inhale by nebulizer over 5-15 minutes four (4) times a day as needed.(J45.20) Mild intermittent asthma without complication ipratropium (ATROVENT) 0.02 % nebulizer solution Use 2.5 mL via nebulizer four times a day as needed. As directed as needed. (J45.20) Mild intermittent asthma without complication fluticasone (FLONASE) 50 mcg/actuation nasal spray instill 2 sprays into each nostril once daily if needed for COLD/ALLERGY SYMPTOMS Rinse mouth after use fluticasone (FLONASE) 50 mcg/actuation nasal spray Use 2 Sprays in each nostril once daily as needed for cold/allergy symptoms. Rinse mouth after use. (Patient not taking: Reported on 07/16/2023) omeprazole (PRILOSEC) 20 mg capsule Take 1 capsule by mouth daily before breakfast. 1/2 hr before meal. Cholecalciferol, Vitamin D3, 125 mcg (5,000 unit) cap Take 1 capsule by mouth once daily. albuterol HFA (VENTOLIN HFA) 90 mcg/actuation inhaler Inhale 2 Puffs as instructed every 4 hours as needed for wheezing/shortness of breath. rosuvastatin (CRESTOR) 10 mg tablet take 1 tablet by mouth at bedtime diclofenac (VOLTAREN) 1 % topical gel Apply 2 g to affected area daily at bedtime. perphenazine 8 mg tablet Take 1 tablet by mouth daily at bedtime. ([facility]) clonazePAM (KLONOPIN) 0.5 mg tablet Take 1 tablet by mouth daily at bedtime. ([facility] gives RX) therapeutic multivitamin tablet Take 1 tablet by mouth once daily. sertraline (ZOLOFT) 50 mg tablet Take 1 tablet by mouth once daily. No current facility-administered medications for this visit. Review of Systems Objective BP 138/80 (BP Site: Left Arm, BP Position: Sitting, BP Cuff Size: Large Adult) Pulse 95 Temp 36.3 ?C (97.3 ?F) Resp 12 Ht 157.5 cm (5' 2 ) Wt 95.7 kg (211 lb) SpO2 98% BMI 38.59 kg/m? Physical Exam Constitutional: Appearance: Normal appearance. She is obese. HENT: Head: Normocephalic. Eyes: Conjunctiva/sclera: Conjunctivae normal. Cardiovascular: Rate and Rhythm: Normal rate and regular rhythm. Heart sounds: Normal heart sounds. Pulmonary: Effort: Pulmonary effort is normal. Breath sounds: Normal breath sounds. Skin: General: Skin is warm and dry. Neurological: General: No focal deficit present. Mental Status: She is alert and oriented to person, place, and time. Psychiatric: Attention and Perception: Attention and perception normal. Mood and Affect: Mood and affect normal. Speech: Speech normal. Behavior: Behavior normal. Thought Content: Thought content normal. Judgment: Judgment normal. Component Latest Ref Rng AND Units 06/19/2022 02/21/2023 08/15/2023 Protein, Total 6.3 - 8.0 g/dL 7.1 6.7 6.9 Albumin 3.9 - 4.9 g/dL 4.5 4.2 4.4 Calcium 8.5 - 10.2 mg/dL 9.6 9.4 (more content not included)... [facility] 09-04[facility] History of Presen t illness Narrative This note was created using [employer]. Subjective Ewelina Roa is a 68 year old female. Patient presents with: F/U 6 months: handicap placard and license plate, needs new nebulizer SUBJECTIVE: Ewelina Roa is a 68 year old year old lady here today for 6 month follow up appointment for review of medical conditions. Was eating more bananas--did not know was a starch. Did cut out already. Is doing regular walking though limited. Needs new nebulizer--hers is 23 years old. For asthma. Has plenty of the albuterol and atrovent. Lyrica still helping for chronic pain. Getting SI joint injections about every [address] Youssef in [place]. Noted due for colonoscopy this year. Father diagnosed with stage 3 colon cancer this year. Noted had prior EGD--esophagitis. Requests sleep study. witnessed apnea and loud snoring. She has known diagnosis of CPAP and was on 7 but stopped using CPAP away because had water damage years ago. Paid for last CPAP. Has been about 5 years since last used CPAP. Needs new PSG. Still needs to get HCDPOA and LW. is surrogate decision maker PAST MEDICAL HISTORY Diagnosis Date Allergic rhinitis allergy injections; Dr. 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 albuterol (PROVENTIL) 2.5 mg /3 mL (0.083 %) nebulizer solution Inhale by nebulizer over 5-15 minutes four (4) times a day as needed.(J45.20) Mild intermittent asthma without complication ipratropium (ATROVENT) 0.02 % nebulizer solution Use 2.5 mL via nebulizer four times a day as needed. As directed as needed. (J45.20) Mild intermittent asthma without complication fluticasone (FLONASE) 50 mcg/actuation nasal spray instill 2 sprays into each nostril once daily if needed for COLD/ALLERGY SYMPTOMS Rinse mouth after use fluticasone (FLONASE) 50 mcg/actuation nasal spray Use 2 Sprays in each nostril once daily as needed for cold/allergy symptoms. Rinse mouth after use. (Patient not taking: Reported on 07/16/2023) omeprazole (PRILOSEC) 20 mg capsule Take 1 capsule by mouth daily before breakfast. 1/2 hr before meal. Cholecalciferol, Vitamin D3, 125 mcg (5,000 unit) cap Take 1 capsule by mouth once daily. albuterol HFA (VENTOLIN HFA) 90 mcg/actuation inhaler Inhale 2 Puffs as instructed every 4 hours as needed for wheezing/shortness of breath. rosuvastatin (CRESTOR) 10 mg tablet take 1 tablet by mouth at bedtime diclofenac (VOLTAREN) 1 % topical gel Apply 2 g to affected area daily at bedtime. perphenazine 8 mg tablet Take 1 tablet by mouth daily at bedtime. ([facility]) clonazePAM (KLONOPIN) 0.5 mg tablet Take 1 tablet by mouth daily at bedtime. ([facility] gives RX) therapeutic multivitamin tablet Take 1 tablet by mouth once daily. sertraline (ZOLOFT) 50 mg tablet Take 1 tablet by mouth once daily. No current facility-administered medications for this visit. Review of Systems Objective BP 138/80 (BP Site: Left Arm, BP Position: Sitting, BP Cuff Size: Large Adult) Pulse 95 Temp 36.3 C (97.3 F) Resp 12 Ht 157.5 cm (5' 2 ) Wt 95.7 kg (211 lb) SpO2 98% BMI 38.59 kg/m Physical Exam Constitutional: Appearance: Normal appearance. She is obese. HENT: Head: Normocephalic. Eyes: Conjunctiva/sclera: Conjunctivae normal. Cardiovascular: Rate and Rhythm: Normal rate and regular rhythm. Heart sounds: Normal heart sounds. Pulmonary: Effort: Pulmonary effort is normal. Breath sounds: Normal breath sounds. Skin: General: Skin is warm and dry. Neurological: General: No focal deficit present. Mental Status: She is alert and oriented to person, place, and time. Psychiatric: Attention and Perception: Attention and perception normal. Mood and Affect: Mood and affect normal. Speech: Speech normal. Behavior: Behavior normal. Thought Content: Thought content normal. Judgment: Judgment normal. Component Latest Ref Rng & Units 06/19/2022 02/21/2023 08/15/2023 Protein, Total 6.3 - 8.0 g/dL 7.1 6.7 6.9 Albumin 3.9 - 4.9 g/dL 4.5 4.2 4.4 Calcium 8.5 - 10.2 mg/dL 9.6 9.4 9.4 Bilirubin, Total 0.2 - 1.3 mg/dL 0.5 0.3 0.4 Alkaline Phosphatase 34 - 123 U/L 120 101 103 AST 13 - 35 U/L 35 25 39 (H) ALT 7 - 38 U/L 31 25 39 (H) Glucose 74 - 99 mg/dL 106 (H) 107 (H) 133 (H) BUN 7 - 21 mg/dL 14 13 12 Creatinine 0.58 - 0.96 mg/dL 0.92 0.94 0.97 (H) Sodium 136 - 144 mmol/L 143 146 (H) 140 Potassium 3.7 - 5.1 mmol/L 4.3 4.3 4.3 Chloride 97 - 105 mmol/L 104 107 (H) 105 CO2 22 - 30 mmol/L 24 27 24 Anion Gap 9 - 18 mmol/L 15 12 11 eGFR >=60 mL/min/1.73m 70 67 65 WBC 3.70 - 11.00 k/uL 7.31 6.10 7.17 RBC 3.90 - 5.20 m/uL 4.74 4.50 4.64 Hemoglobin 11.5 - 15.5 g/dL 13.1 12.7 12.7 Hematocrit 36.0 - 46.0 % 40.4 38.7 40.2 MCV 80.0 - 100.0 fL 85.2 86.0 86.6 MCH 26.0 - 34.0 pg 27.6 28.2 27.4 MCHC 30.5 - 36.0 g/dL 32.4 32.8 31.6 RDW-CV 11.5 - 15.0 % 13.8 13.3 13.9 Platelet Count 150 - 400 k/uL 249 241 309 MPV 9.0 - 12.7 fL 11.1 11.3 10.9 Absolute nRBC <0.01 k/uL <0.01 <0.01 <0.01 Cholesterol, Total <200 mg/dL 168 230 (H) 174 Triglyceride <150 mg/dL 171 (H) 156 (H) 189 (H) HDL Cholesterol >39 mg/dL 38 (L) 39 (L) 35 (L) Non HDL Cholesterol <130 mg/dL 130 (H) 191 (H) 139 (H) Fasting Time hrs 12 12 13 VLDL Cholesterol <30 mg/dL 34 (H) 31 (H) 38 (H) TC:HDL Ratio <5.10 4.42 5.90 (H) 4.97 LDL Cholesterol <100 mg/dL 96 160 (H) 101 (H) LDL:HDL Ratio <2.54 2.53 4.10 (H) 2.89 (H) Hemoglobin A1C 4.3 - 5.6 % 6.0 (H) 5.9 (H) 6.1 (H) Estimated Average Glucose mg/dL 126 123 128 Vitamin D 25 Hydroxy 31.0 - 80.0 ng/mL 54.1 64.7 62.8 Magnesium 1.7 - 2.3 mg/dL 2.5 (H) Assessment and Plan Encounter Diagnosis ICD-10-CM 1. Mild intermittent asthma without complication J45.20 NEBULIZER Well controlled. Not needing albuterol or iptratropium daily, Has enough of vials for nebulizer. Needs new nebulizer (prior one 27yo and needs replaced) 2. Chronic bilateral low back pain with bilateral sciatica M54.42 pregabalin (LYRICA) 100 mg capsule M54.[address] Youssef taking care of 3. OSKAR (obstructive sleep apnea) G47.33 Needs new sleep study as noted in HPI.Has not used for years so now needs updated sleep study.[facility] 4. Fibromyalgia M79.7 pregabalin (LYRICA) 100 mg capsule Stable on med 5. Gastroesophageal reflux disease without esophagitis K21.9 CONSULT TO GASTROENTEROLOGY Esophagitis was noted on 04/2014 EGD; controlled with PPI. Consult to GI as requested by patient. Due for colonoscopy as noted above 6. Daytime sleepiness R40.0 Needs sleep study as noted above 7. Witnessed apneic spells R06.81 Needs sleep study as noted above 8. Loud snoring R06.83 Needs sleep study as noted above 9. Colon cancer screening Z12.11 CONSULT TO GASTROENTEROLOGY CANCELED: CONSULT TO GASTROENTEROLOGY Due for screening 10. Encounter for immunization Z23 RSV PRINTED PHARMACY INSTRUCTIONS 11. Breast cancer screening by mammogram Z12.31 SEE SCREENING W EDUARDO 12. Class 2 obesity due to excess calories with body mass index (BMI) of 38.0 to 38.9 in adult, unspecified whether serious comorbidity present E66.09 Z68.38 13. Vitamin D deficiency E55.9 VITAMIN D 25 HYDROXY 14. Hypermagnesemia E83.41 MAGNESIUM BLD 15. Impaired glucose metabolism R73.09 COMP METABOLIC PANEL HGB A1C 16. Mixed hyperlipidemia E78.2 LIPID PANEL BASIC 17. Encounter for long-term current use of medication Z79.899 COMP METABOLIC PANEL CBC LIPID PANEL BASIC HGB A1C MAGNESIUM BLD VITAMIN D 25 HYDROXY Above issues addressed with patient. Patient involved in shared decision making for management of medical issues. History and medications reviewed. Epic updated as needed Refills and/or prescriptions taken care of and meds adjusted as indicated after reviewed history, exam and labs. Health Maintenance reviewed. Updated record and/or ordered tests as recorded. Encouraged on efforts at healthy diet and regular exercise and adequate sleep. Needs to keep working on diet and exercise with lifestyle changes for effective weight loss as well as prevention of DM, and control of BP and lipids. Will fax [facility] to [facility] for [facility] study. See if can do as a split study if cannot just do CPAP titration study given previously diagnosed with OSKAR.. Paulina Jolley MD documented in this encounter [facility] 09-04-2023 Nurse Note new nebulizer needs to go to [place], [place] fax # [phone] Sees Sep 10 for pain management documented in this encounter [facility] 08-13-2023 Note HNO ID: [id number] Author: CRISSY YATES RPFT Service: ? Author Type: Respiratory Therapist Type: Progress Notes Filed: 08/13/2023 10:46 Note Text: PULM FUNCTION SMARTBLOCK: Provider: Paulina Jolely MD Assisting Tech: Crissy Yates RPFT Spirometry w/BD: 1 [facility] 08-02-2023 Miscellaneous Notes Duplicate request Taken care of earlier today Has August appointment--more refills then Patient has been identified by name and date of : No Patient phones for refill(s): Requested Prescriptions Pending Prescriptions Disp Refills pregabalin (LYRICA) 100 mg capsule 60 capsule 5 Sig: Take 1 capsule by mouth two times a day for 180 days. Date of last office visit in primary care: 07/16/2023 Date of next office visit in primary care: Appointments for Next 60 Days Date Time Provider Location Dept Phone 08/13/2023 11:00 AM PULM LAB [facility] [place] [phone] 09/04/2023 10:40 AM PAULINA JOLLEY [facility] [place] [phone] Please advise. Thank you. Karla Gilbert. documented in this encounter [facility] 08-02-2023 Miscellaneous Notes The following approved medication requests have been transmitted electronically. Requested Prescriptions Signed Prescriptions Disp Refills pregabalin (LYRICA) 100 mg capsule 60 capsule 0 Sig: Take 1 capsule by mouth two times a day for 30 days. Authorizing Provider: PAULINA JOLLEY MD Will give more refills at August appointment Patient has been identified by name and date of : No Patient phones for refill(s): Requested Prescriptions Pending Prescriptions Disp Refills pregabalin (LYRICA) 100 mg capsule [Pharmacy Med Name: PREGABALIN 100 MG CAPSULE] 60 capsule Sig: Take 1 capsule by mouth two times a day. Date of last office visit in primary care: 07/16/2023 Date of next office visit in primary care: Appointments for Next 60 Days Date Time Provider Location Dept Phone 08/13/2023 11:00 AM PULM LAB [facility] [place] [phone] 09/04/2023 10:40 AM PAULINA JOLLEY [facility] [place] [phone] Please advise. Thank you. Karla Gilbert. documented in this encounter [facility] 07-16-2023 Note HNO ID: [id number] Author: An Ohara APRN.PANEL MAKER Service: ? Author Type: Nurse Specialist Type: Progress Notes Filed: 07/16/2023 2:15 PM Note Text: ROCKY Roa is a 68 year old female who presents with 5 days of symptoms that are worsening. Symptoms include: Fever (?100.4F): No or Chills: No Cough: Yes Shortness of breath: Yes or Difficulty breathing: No Fatigue: Yes Muscle aches: No Headache: Yes New loss of smell or taste: No Sore throat: No Nasal congestion: Yes or Rhinorrhea: Yes Nausea: No or Vomiting: No Diarrhea: No OTC meds/remedies that patient has tried: Mucinex and Vicks. History of asthma using albuterol and atrovent nebulizer BID. Exposures: Sick contacts? yes family members, , child, grandchild Family or close contacts with confirmed/probable COVID-19 in last 14 days? no known OBJECTIVE PHYSICAL EXAM: BP 137/83 Pulse 107 Temp 37.2 ?C (98.9 ?F) Resp 16 Wt 92.5 kg (204 lb) SpO2 97% BMI 37.31 kg/m? General appearance: tired/ill appearing, alert, cooperative, pleasant, in no acute distress Head: Normocephalic Eyes: conjunctiva/corneas normal Ears: R TM - clear with good landmarks, nl light reflex, L TM - not visualized secondary to cerumen Nose: clear rhinorrhea, mucosa erythematous and swollen Oropharynx: moist without lesions, mild erythema to GPA Neck: supple and small, benign anterior cervical nodes bilaterally Heart: regular rate and rhythm, without murmur Lungs: good air exchange, scattered end expiratory wheezes, deep cough ASSESSMENT/PLAN (J45.901) Exacerbation of asthma, unspecified asthma severity, unspecified whether persistent (primary encounter diagnosis) (J45.20) Mild intermittent asthma without complication ASSESSMENT/PLAN: 1. Exacerbation of asthma, unspecified asthma severity, unspecified whether persistent - ICD9: 493.92, ICD10: J45.901 (primary diagnosis) - ALBUTEROL SULFATE 2.5 MG/3 ML (0.083 %) SOLUTION FOR NEBULIZATION - IPRATROPIUM BROMIDE 0.02 % SOLUTION FOR INHALATION - AZITHROMYCIN 250 MG TABLET - PREDNISONE 10 MG TABLET 2. Mild intermittent asthma without complication - ICD9: 493.90, ICD10: J45.20 - ALBUTEROL SULFATE 2.5 MG/3 ML (0.083 %) SOLUTION FOR NEBULIZATION - IPRATROPIUM BROMIDE 0.02 % SOLUTION FOR INHALATION - AZITHROMYCIN 250 MG TABLET - PREDNISONE 10 MG TABLET An Ohara, MAURO.PANEL MAKER Medical Decision Making: Problems: Low: Acute, uncomplicated illness or injury Risk: Moderate: Drug management Medical Decision Making Level: 3 - Low [facility] 07-16-2023 History of Presen t illness Narrative ROCKY Roa is a 68 year old female who presents with 5 days of symptoms that are worsening. Symptoms include: Fever (?100.4F): No or Chills: No Cough: Yes Shortness of breath: Yes or Difficulty breathing: No Fatigue: Yes Muscle aches: No Headache: Yes New loss of smell or taste: No Sore throat: No Nasal congestion: Yes or Rhinorrhea: Yes Nausea: No or Vomiting: No Diarrhea: No OTC meds/remedies that patient has tried: Mucinex and Vicks. History of asthma using albuterol and atrovent nebulizer BID. Exposures: Sick contacts? yes family members, , child, grandchild Family or close contacts with confirmed/probable COVID-19 in last 14 days? no known OBJECTIVE PHYSICAL EXAM: BP 137/83 Pulse 107 Temp 37.2 C (98.9 F) Resp 16 Wt 92.5 kg (204 lb) SpO2 97% BMI 37.31 kg/m General appearance: tired/ill appearing, alert, cooperative, pleasant, in no acute distress Head: Normocephalic Eyes: conjunctiva/corneas normal Ears: R TM - clear with good landmarks, nl light reflex, L TM - not visualized secondary to cerumen Nose: clear rhinorrhea, mucosa erythematous and swollen Oropharynx: moist without lesions, mild erythema to GPA Neck: supple and small, benign anterior cervical nodes bilaterally Heart: regular rate and rhythm, without murmur Lungs: good air exchange, scattered end expiratory wheezes, deep cough ASSESSMENT/PLAN (J45.901) Exacerbation of asthma, unspecified asthma severity, unspecified whether persistent (primary encounter diagnosis) (J45.20) Mild intermittent asthma without complication ASSESSMENT/PLAN: 1. Exacerbation of asthma, unspecified asthma severity, unspecified whether persistent - ICD9: 493.92, ICD10: J45.901 (primary diagnosis) - ALBUTEROL SULFATE 2.5 MG/3 ML (0.083 %) SOLUTION FOR NEBULIZATION - IPRATROPIUM BROMIDE 0.02 % SOLUTION FOR INHALATION - AZITHROMYCIN 250 MG TABLET - PREDNISONE 10 MG TABLET 2. Mild intermittent asthma without complication - ICD9: 493.90, ICD10: J45.20 - ALBUTEROL SULFATE 2.5 MG/3 ML (0.083 %) SOLUTION FOR NEBULIZATION - IPRATROPIUM BROMIDE 0.02 % SOLUTION FOR INHALATION - AZITHROMYCIN 250 MG TABLET - PREDNISONE 10 MG TABLET An Ohara APRN.CNS Medical Decision Making: Problems: Low: Acute, uncomplicated illness or injury Risk: Moderate: Drug management Medical Decision Making Level: 3 - Low documented in this encounter [facility] 07-15-2023 Miscellaneous Notes Patient has been identified by name and date of : No Patient phones for refill(s): Requested Prescriptions Pending Prescriptions Disp Refills fluticasone (FLONASE) 50 mcg/actuation nasal spray [Pharmacy Med Name: FLUTICASONE PROP 50 MCG SPRAY] 32 g Sig: instill 2 sprays into each nostril once daily if needed for COLD/ALLERGY SYMPTOMS Rinse mouth after use Date of last office visit in primary care: 02/26/2023 Date of next office visit in primary care: 07/13/2023 Last 2 Encounter Wt Readings: Date: Wt: 02/26/2023 93.3 kg (205 lb 9.6 oz) 06/26/2022 91.6 kg (202 lb) Previous labs/tests for medication: Not applicable Please advise. Thank you. Karla Gilbert. documented in this encounter [facility] 07-15-2023 Miscellaneous Notes Patient has been identified by name and date of : Yes Patient phones for refill(s): Requested Prescriptions Pending Prescriptions Disp Refills fluticasone (FLONASE) 50 mcg/actuation nasal spray 16 g 1 Sig: Use 2 Sprays in each nostril once daily as needed for cold/allergy symptoms. Rinse mouth after use. Date of last office visit in primary care: 02/26/2023 Date of next office visit in primary care: 07/16/2023 Last 2 Encounter Wt Readings: Date: Wt: 02/26/2023 93.3 kg (205 lb 9.6 oz) 06/26/2022 91.6 kg (202 lb) Please advise. Thank you. KENDALL Jean Baptiste. documented in this encounter [facility] 07-01-2023 Miscellaneous Notes Pt calls to report that [facility] advised they did not receive order for nebulizer supplies. RE-faxed order to [phone] as requested. Barbie Ghosh LPN documented in this encounter [facility] 06-28-2023 Miscellaneous Notes Order and Insurance information/face sheet faxed to [facility]. Patient aware. Angela Bowles LPN Printed Rx set to print for nebulizer supplies will also need to send pts insurance info Patient called to stated [facility] does not handle medical supplies. Needs new nebulizer order sent to [facility] in [place]. Patient calls to report that her nebulizer mouth piece broke and is requesting a new nebulizer administration set order be sent to [facility]. Pended with diagnosis of Asthma. Needs quantity. Nadege Muse, RN documented in this encounter [facility] 02-26-2023 Note HNO ID: [id number] Author: Paulina Jolley MD Service: ? Author Type: Physician Type: Progress Notes Filed: 02/26/2023 1:12 PM Note Text: This note was created using [employer]. Subjective Ewelina Roa is a 67 year old female. Patient presents with: F/U 6 months SUBJECTIVE: Ewelina Roa is a 67 year old year old lady here today for 6 month follow up appointment for review of medical conditions. Noted that was forgetting to take Crestor at bedtime. Knows needs to drink more water. Likes fish--does eat once or twice a week. Exercise tolerance limited. Will see Dr. Youssef soon to help with low back pain--does sacroiliac injections. Plans to request referral to PT for aquatherapy at [facility] when sees Dr. Youssef. Feels only able to exercise in the water due to pain severe with exercises on dry land. Not eligible for Silver Sneakers. Will complete HCDPOA and LW then bring in when done. HCDPOA is . Plans on colonoscopy and EGD in [place] and prefers GI. Discussed providers in town PAST MEDICAL HISTORY Diagnosis Date Allergic rhinitis allergy injections; Dr. 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 fluticasone (FLONASE) 50 mcg/actuation nasal spray Use 2 Sprays in each nostril once daily as needed for cold/allergy symptoms. Rinse mouth after use. Cholecalciferol, Vitamin D3, 125 mcg (5,000 unit) cap Take 1 capsule by mouth once daily. albuterol HFA (VENTOLIN HFA) 90 mcg/actuation inhaler Inhale 2 Puffs as instructed every 4 hours as needed for wheezing/shortness of breath. rosuvastatin (CRESTOR) 10 mg tablet take 1 tablet by mouth at bedtime omeprazole (PRILOSEC) 20 mg capsule Take 1 capsule by mouth daily before breakfast. 1/2 hr before meal. albuterol (PROVENTIL) 2.5 mg /3 mL (0.083 %) nebulizer solution Inhale by nebulizer over 5-15 minutes four (4) times a day as needed.(J45.20) Mild intermittent asthma without complication ipratropium (ATROVENT) 0.02 % nebulizer solution Use 2.5 mL via nebulizer four times daily as needed. As directed as needed. (J45.20) Mild intermittent asthma without complication diclofenac (VOLTAREN) 1 % topical gel Apply 2 g to affected area daily at bedtime. perphenazine 8 mg tablet Take 1 tablet by mouth daily at bedtime. [facility] clonazePAM (KLONOPIN) 0.5 mg tablet Take 1 tablet by mouth daily at bedtime. ([facility] gives RX) therapeutic multivitamin tablet Take 1 tablet by mouth once daily. sertraline (ZOLOFT) 50 mg tablet Take 1 tablet by mouth once daily. No current facility-administered medications for this visit. Review of Systems Objective BP 132/88 Pulse 90 Temp 36.2 ?C (97.1 ?F) Resp 18 Wt 93.3 kg (205 lb 9.6 oz) SpO2 97% BMI 37.60 kg/m? Last 5 Encounter Wt Readings: Date: Wt: 02/26/2023 93.3 kg (205 lb 9.6 oz) 06/26/2022 91.6 kg (202 lb) 04/25/2022 92.1 kg (203 lb) 03/23/2022 93.9 kg (207 lb) 02/16/2022 93.4 kg (206 lb) No waist measurement recorded Estimated body mass index is 37.6 kg/m? as calculated from the following: Height as of 04/25/22: 157.5 cm (5' 2 ). Weight as of this encounter: 93.3 kg (205 lb 9.6 oz). Last 5 Encounter BP Readings: Date: BP: 02/26/2023 132/88 06/26/2022 122/82 04/25/2022 155/88 03/23/2022 142/86 02/16/2022 126/90 02/26/23 0958 02/26/23 1047 BP: 132/88 124/86 Pulse: 90 Resp: 18 Temp: 36.2 ?C (97.1 ?F) SpO2: 97% Weight: 93.3 kg (205 lb 9.6 oz) Physical Exam Constitutional: Appearance: Normal appearance. HENT: Head: Normocephalic. Eyes: Conjunctiva/sclera: Conjunctivae normal. Cardiovascular: Rate and Rhythm: Normal rate and regular rhythm. Heart sounds: Normal heart sounds. Pulmonary: Effort: Pulmonary effort is normal. Breath sounds: Normal breath sounds. Skin: General: Skin is warm and dry. Neurological: General: No focal deficit present. Mental Status: She is alert and oriented to person, place, and time. Psychiatric: Attention and Perception: Attention and perception normal. Mood and Affect: Mood and affect normal. Speech: Speech normal. Behavior: Behavior normal. Thought Content: Thought content normal. Judgment: Judgment normal. Component Latest (more content not included)... [facility] 11-19-2022 Miscellaneous Notes Last office visit: 10/08/22 Next appointment scheduled: 02/26/23 Patient has been identified by name and date of : Yes Requested Prescriptions Pending Prescriptions Disp Refills Cholecalciferol, Vitamin D3, 125 mcg (5,000 unit) cap 30 capsule 11 Sig: Take 1 capsule by mouth once daily. albuterol HFA (VENTOLIN HFA) 90 mcg/actuation inhaler Sig: Inhale 2 Puffs as instructed every 4 hours as needed for wheezing/shortness of breath. RX INSTRUCTIONS: Patient aware RX will be sent to pharmacy. No need to notify patient. Geetha Mittal Pss documented in this encounter [facility] 11-19-2022 Miscellaneous Notes Last office visit: 10/08/22 Next appointment scheduled: 02/26/23 Patient phones requesting refills as follows: Requested Prescriptions Pending Prescriptions Disp Refills fluticasone (FLONASE) 50 mcg/actuation nasal spray 16 g 1 Sig: Use 2 Sprays in each nostril once daily as needed for cold/allergy symptoms. Rinse mouth after use. Please review and advise. Maci Devine LPN documented in this encounter [facility] 10-08-2022 Note HNO ID: [id number] Author: An Ohara APRN.PANEL MAKER Service: ? Author Type: Nurse Specialist Type: Progress Notes Filed: 10/08/2022 3:39 PM Note Text: I have communicated my name and active licensure. The patient's identity and physical location were verified at the time of this visit. Either the patient or their legal sales service representative has been informed of the risks and benefits of -- and alternatives to -- treatment through a remote evaluation and consents to proceed with the evaluation remotely. Telemedicine Evaluation for COVID-19 Infection MyChart video visit was used for evaluation of this patient. Location of patient: [facility] Ewelina Roa is a 67 year old female who presents with 5 days of symptoms that are worsening. Coughing, wheezing. 5 days of symptoms She states symptoms are consistent with asthmatic bronchitis that she had last year. Symptoms include: Fever (?100.4F): No or Chills: No Cough: Yes, not productive Shortness of breath: Yes or Difficulty breathing: No Fatigue: Yes Muscle aches: Yes Headache: Yes New loss of smell or taste: No Sore throat: No Nasal congestion: No or Rhinorrhea: No Nausea: No or Vomiting: No Diarrhea: No OTC meds/remedies that patient has tried: nebulizer with medication High risk category assessment Age > 60 years old Exposures: Sick contacts? No Family or close contacts with confirmed/probable COVID-19 in last 14 days? No She reports that she has never smoked. She has never used smokeless tobacco. OBJECTIVE VIDEO EXAM (if available) No home vitals PHYSICAL EXAM: General appearance: tired/ill appearing, alert, cooperative, pleasant, in no acute distress Head: Normocephalic Eyes: conjunctiva/corneas normal Lungs: cough present, respirations normal rate, not labored ASSESSMENT/PLAN (J45.901) Exacerbation of asthma, unspecified asthma severity, unspecified whether persistent (primary encounter diagnosis) (J22) Acute lower respiratory infection ASSESSMENT/PLAN: 1. Exacerbation of asthma, unspecified asthma severity, unspecified whether persistent - ICD9: 493.92, ICD10: J45.901 (primary diagnosis) - PREDNISONE 10 MG TABLET 2. Acute lower respiratory infection - ICD9: 519.8, ICD10: J22 - AZITHROMYCIN 250 MG TABLET Supportive care. She will let us know if not improving. An Ohara APRN.PANEL MAKER 20 min in visit [facility] 10-08-2022 History of Presen t illness Narrative I have communicated my name and active licensure. The patient's identity and physical location were verified at the time of this visit. Either the patient or their legal sales service representative has been informed of the risks and benefits of -- and alternatives to -- treatment through a remote evaluation and consents to proceed with the evaluation remotely. Telemedicine Evaluation for COVID-19 Infection MyChart video visit was used for evaluation of this patient. Location of patient: [facility] Ewelina Roa is a 67 year old female who presents with 5 days of symptoms that are worsening. Coughing, wheezing. 5 days of symptoms She states symptoms are consistent with asthmatic bronchitis that she had last year. Symptoms include: Fever (?100.4F): No or Chills: No Cough: Yes, not productive Shortness of breath: Yes or Difficulty breathing: No Fatigue: Yes Muscle aches: Yes Headache: Yes New loss of smell or taste: No Sore throat: No Nasal congestion: No or Rhinorrhea: No Nausea: No or Vomiting: No Diarrhea: No OTC meds/remedies that patient has tried: nebulizer with medication High risk category assessment Age > 60 years old Exposures: Sick contacts? No Family or close contacts with confirmed/probable COVID-19 in last 14 days? No She reports that she has never smoked. She has never used smokeless tobacco. OBJECTIVE VIDEO EXAM (if available) No home vitals PHYSICAL EXAM: General appearance: tired/ill appearing, alert, cooperative, pleasant, in no acute distress Head: Normocephalic Eyes: conjunctiva/corneas normal Lungs: cough present, respirations normal rate, not labored ASSESSMENT/PLAN (J45.901) Exacerbation of asthma, unspecified asthma severity, unspecified whether persistent (primary encounter diagnosis) (J22) Acute lower respiratory infection ASSESSMENT/PLAN: 1. Exacerbation of asthma, unspecified asthma severity, unspecified whether persistent - ICD9: 493.92, ICD10: J45.901 (primary diagnosis) - PREDNISONE 10 MG TABLET 2. Acute lower respiratory infection - ICD9: 519.8, ICD10: J22 - AZITHROMYCIN 250 MG TABLET Supportive care. She will let us know if not improving. An Ohara APRN.PANEL MAKER 20 min in visit documented in this encounter [facility] 09-25-2022 Miscellaneous Notes Patient has been identified by name and date of : Yes, Patient phones for refill(s): Requested Prescriptions Pending Prescriptions Disp Refills rosuvastatin (CRESTOR) 10 mg tablet [Pharmacy Med Name: ROSUVASTATIN CALCIUM 10 MG TAB] 90 tablet 11 Sig: take 1 tablet by mouth at bedtime Date of last office visit in primary care: 06/26/2022 6 month follow-up: 02/26/2023 Last 2 Encounter Wt Readings: Date: Wt: 06/26/2022 91.6 kg (202 lb) 04/25/2022 92.1 kg (203 lb) Previous labs/tests for medication: Cholesterol: HDL Cholesterol (mg/dL) Date Value 06/19/2022 38 09/08/2020 38 LDL Cholesterol (mg/dL) Date Value 06/19/2022 96 09/08/2020 186 ALT (U/L) Date Value 06/19/2022 31 01/26/2021 26 Non HDL Cholesterol (mg/dL) Date Value 06/19/2022 130 09/08/2020 227 Please advise. Thank you. Tammy Marin LPN documented in this encounter [facility] 06-26-2022 History of Presen t illness Narrative This note was created using [employer]. Subjective Ewelina Roa is a 67 year old female. Patient presents with: F/U 6 months SUBJECTIVE: Ewelina Roa is a 67 year old year old lady here today for 6 month follow up appointment for review of medical conditions. Shoulder is okay but having rotator cuff issues on both shoulders. Doing aquatherapy for shoulders and knees. Fell recently when trying to step up over a curb. Landed on right knee that hd TKA, Will follow up with ortho 07/17. 08/02--back injection to be scheduled at this appointment with pain management. Doing well on current meds without adverse effects. Noted history of schizophrenia--no signs of severe symptoms. Stable on current meds. PAST MEDICAL HISTORY Diagnosis Date Allergic rhinitis allergy injections; Dr. 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 omeprazole (PRILOSEC) 20 mg capsule Take 1 capsule by mouth daily before breakfast. 1/2 hr before meal. albuterol (PROVENTIL) 2.5 mg /3 mL (0.083 %) nebulizer solution Inhale by nebulizer over 5-15 minutes four (4) times a day as needed.(J45.20) Mild intermittent asthma without complication ipratropium (ATROVENT) 0.02 % nebulizer solution Use 2.5 mL via nebulizer four times daily as needed. As directed as needed. (J45.20) Mild intermittent asthma without complication fluticasone (FLONASE) 50 mcg/actuation nasal spray Use 2 Sprays in each nostril once daily as needed for cold/allergy symptoms. Rinse mouth after use. diclofenac (VOLTAREN) 1 % topical gel Apply 2 g to affected area daily at bedtime. Cholecalciferol, Vitamin D3, 125 mcg (5,000 unit) cap Take 1 capsule by mouth once daily. rosuvastatin (CRESTOR) 10 mg tablet Take 1 tablet by mouth daily at bedtime. albuterol HFA (VENTOLIN HFA) 90 mcg/actuation inhaler Inhale 2 Puffs as instructed every 4 hours as needed for wheezing/shortness of breath. perphenazine 8 mg tablet Take 1 tablet by mouth daily at bedtime. ([facility]) clonazePAM (KLONOPIN) 0.5 mg tablet Take 1 tablet by mouth daily at bedtime. ([facility] gives RX) therapeutic multivitamin tablet Take 1 tablet by mouth once daily. sertraline (ZOLOFT) 50 mg tablet Take 1 tablet by mouth once daily. [place]-3 Fatty Acids 500 mg cap Take by mouth once daily. No current facility-administered medications for this visit. Review of Systems Objective BP 122/82 Pulse 79 Wt 91.6 kg (202 lb) SpO2 97% BMI 36.95 kg/m Last 5 Encounter Wt Readings: Date: Wt: 06/26/2022 91.6 kg (202 lb) 04/25/2022 92.1 kg (203 lb) 03/23/2022 93.9 kg (207 lb) 02/16/2022 93.4 kg (206 lb) 10/24/2021 90.3 kg (199 lb) No waist measurement recorded Estimated body mass index is 36.95 kg/m as calculated from the following: Height as of 04/25/22: 157.5 cm (5' 2 ). Weight as of this encounter: 91.6 kg (202 lb). Last 5 Encounter BP Readings: Date: BP: 06/26/2022 122/82 04/25/2022 155/88 03/23/2022 142/86 02/16/2022 126/90 10/24/2021 128/78 Physical Exam Constitutional: Appearance: Normal appearance. HENT: Head: Normocephalic. Eyes: Conjunctiva/sclera: Conjunctivae normal. Cardiovascular: Rate and Rhythm: Normal rate and regular rhythm. Heart sounds: Normal heart sounds. Pulmonary: Effort: Pulmonary effort is normal. Breath sounds: Normal breath sounds. Skin: General: Skin is warm and dry. Neurological: General: No focal deficit present. Mental Status: She is alert and oriented to person, place, and time. Psychiatric: Attention and Perception: Attention and perception normal. Mood and Affect: Mood and affect normal. Speech: Speech normal. Behavior: Behavior normal. Thought Content: Thought content normal. Judgment: Judgment normal. Assessment and Plan Encounter Diagnosis ICD-10-CM 1. Impaired glucose metabolism R73.09 HGB A1C COMP METABOLIC PANEL 2. Vitamin D deficiency E55.9 VITAMIN D 25 HYDROXY 3. Mixed hyperlipidemia E78.2 LIPID PANEL BASIC 4. Seasonal allergic rhinitis, unspecified trigger J30.2 5. Contusion of right knee, subsequent encounter S80.01XD s/p TKA--will follow up with ortho. happened 06/11 6. Encounter for immunization Z23 INFLUENZA SEASONAL QUADRIVALENT HIGH DOSE AGE 65+ [employer] COVID-19 BIVALENT BOOSTER VACCINE, AGE 12+ YR 7. Breast cancer screening by mammogram Z12.31 SEE SCREENING W EDUARDO SEE SCREENING 8. Encounter for long-term current use of medication Z79.899 COMP METABOLIC PANEL CBC Above issues addressed with patient. Patient involved in shared decision making for management of medical issues. History and medications reviewed. Epic updated as needed Refills and/or prescriptions taken care of and meds adjusted as indicated after reviewed history, exam and labs. Health Maintenance reviewed. Updated record and/or ordered tests as recorded. Encouraged on efforts at healthy diet and regular exercise and adequate sleep. Needs to keep working on diet and exercise with lifestyle changes for effective weight loss as well as prevention of DM, and control of BP and lipids. Paulina Jolley MD documented in this encounter [facility] 05-16-2022 Miscellaneous Notes The following approved medication requests have been transmitted electronically. Requested Prescriptions Signed Prescriptions Disp Refills pregabalin (LYRICA) 100 mg capsule 60 capsule 5 Sig: Take 1 capsule by mouth twice daily for 180 days. Authorizing Provider: PAULINA JOLLEY MD Patient has been identified by name and date of : Yes Patient phones for refill(s): Requested Prescriptions Pending Prescriptions Disp Refills pregabalin (LYRICA) 100 mg capsule 60 capsule 5 Sig: Take 1 capsule by mouth twice daily for 180 days. Date of last office visit in primary care: 12/12/21 next apt 06/26/22 Last 2 Encounter Wt Readings: Date: Wt: 04/25/2022 92.1 kg (203 lb) 03/23/2022 93.9 kg (207 lb) Previous labs/tests for medication: Not applicable Thank you. Jenn Mittal LPN documented in this encounter [facility] 05-15-2022 Miscellaneous Notes Patient calling to check that [place] message came thru for refill. Geetha Mittal Pss documented in this encounter [facility] 04-25-2022 History of Presen t illness Narrative FOLLOW UP VISIT NAME: Ewelina [facility] NO.: [id number] DATE OF SERVICE: 04/25/2022 : 1955 REFERRING PHYSICIAN: Paulina Jolley MD Ewelina is status post left breast excisional biopsy 04/17/2022 Pathology reveals: MICROSCOPIC DIAGNOSIS Left breast, wire-guided lumpectomy: Fibrocystic change with associated microcalcifications. Multifocal usual intraductal hyperplasia without atypia. Adenosis. Focal fat necrosis. Banal calcifications of vessel villa. No evidence of malignancy. She denies any problems. VITALS: Blood pressure 155/88, pulse 120, temperature (!) 35.8 C (96.5 F), height 157.5 cm (5' 2 ), weight 92.1 kg (203 lb), SpO2 95 %. On examination, the incisional site is healing well with no evidence of infection. Slight ecchymoses is noted. Assessment IMPRESSION: s/p left breast surgery PLAN: Patient is to return to routine annual breast cancer screening, she can return to PCP for this. Patient encouraged to follow up with me in the clinic if any worsening signs/symptoms. Patient acknowledges above. Diagnoses: (Z98.890) Status post left breast biopsy (primary encounter diagnosis) I have confirmed and edited as necessary, the PFSH and ROS obtained by others. Jenifer Sauer MD documented in this encounter [facility] 04-24-2022 Miscellaneous Notes Tried to contact patient to let her know pathology results from procedure done [facility]. [facility] Pathology reveals: MICROSCOPIC DIAGNOSIS Left breast, wire-guided lumpectomy: Fibrocystic change with associated microcalcifications. Multifocal usual intraductal hyperplasia without atypia. Adenosis. Focal fat necrosis. Banal calcifications of vessel villa. No evidence of malignancy. However, voice mail without identifiers. documented in this encounter [facility] 03-23-2022 History of Presen t illness Narrative HISTORY AND PHYSICAL Ewelina Roa 1955 REFERRING PHYSICIAN: Jenifer Sauer MD CHIEF COMPLAINT: Follow Up (Lump in left breast, benign, mamm 03/15/22) HPI: The patient is a 66 year old female findings of papilloma by needle core biopsy. She is s/p left needle core breast biopsy via ultrasound on 03/15/2022. FINAL DIAGNOSIS A. Left breast mass, 6:00, 1 cm from nipple, ribbon clip, ultrasound-guided core biopsy: -- Intraductal papilloma. She denies any problems with the biopsy site. She is here for discussion of further therapy. PAST MEDICAL HISTORY Diagnosis Date Allergic rhinitis allergy injections; Dr. 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; was done for work around 1984 Schizophrenia, paranoid type (HCC) Type O blood, Rh negative T&C when had blood transfusion September 2014 VITAMIN D DEFICIENCY NOS 06/03/2007 PAST SURGICAL HISTORY Procedure Laterality Date DELIVERY ONLY 1981 , low cervical COLONOSCOPY FLX DX W/COLLJ SPEC WHEN PFRMD 04/28/2014 Colonoscopy ESOPHAGOGASTRODUODENOSCOPY TRANSORAL DIAGNOSTIC 04/28/2014 EGD PAST SURGICAL HISTORY OF age 5 eye PAST SURGICAL HISTORY OF 09/2014 right TKR PAST SURGICAL HISTORY OF left knee TKR PAST SURGICAL HISTORY OF 11/2015 right shoulder PAST SURGICAL HISTORY OF 05/23/16 left shoulder SEPTOPLASTY/SUBMUCOUS RESECJ W/WO CARTILAGE GRF 1983 Septoplasty TOTAL ABDOMINAL HYSTERECT W/WO RMVL TUBE OVARY 1988 Hysterectomy, CARLOS Current Outpatient Medications Medication Sig omeprazole (PRILOSEC) 20 mg capsule Take 1 capsule by mouth daily before breakfast. 1/2 hr before meal. albuterol (PROVENTIL) 2.5 mg /3 mL (0.083 %) nebulizer solution Inhale by nebulizer over 5-15 minutes four (4) times a day as needed.(J45.20) Mild intermittent asthma without complication ipratropium (ATROVENT) 0.02 % nebulizer solution Use 2.5 mL via nebulizer four times daily as needed. As directed as needed. (J45.20) Mild intermittent asthma without complication fluticasone (FLONASE) 50 mcg/actuation nasal spray Use 2 Sprays in each nostril once daily as needed for cold/allergy symptoms. Rinse mouth after use. diclofenac (VOLTAREN) 1 % topical gel Apply 2 g to affected area daily at bedtime. Cholecalciferol, Vitamin D3, 125 mcg (5,000 unit) cap Take 1 capsule by mouth once daily. rosuvastatin (CRESTOR) 10 mg tablet Take 1 tablet by mouth daily at bedtime. pregabalin (LYRICA) 100 mg capsule Take 1 capsule by mouth twice daily for 180 days. albuterol HFA (VENTOLIN HFA) 90 mcg/actuation inhaler Inhale 2 Puffs as instructed every 4 hours as needed for wheezing/shortness of breath. perphenazine 8 mg tablet Take 1 tablet by mouth daily at bedtime. ([facility]) [place]-3 Fatty Acids 500 mg cap Take by mouth once daily. clonazePAM (KLONOPIN) 0.5 mg tablet Take 1 tablet by mouth daily at bedtime. ([facility] gives RX) therapeutic multivitamin tablet Take 1 tablet by mouth once daily. sertraline (ZOLOFT) 50 mg tablet Take 1 tablet by mouth once daily. ALLERGIES: Seasonal Allergies PERSONAL HISTORY: Social History Tobacco Use Smoking status: Never Smokeless tobacco: Never Vaping Use Vaping Use: Never used Substance Use Topics Alcohol use: No Drug use: No FAMILY HISTORY Problem Relation Age of Onset Thyroid Mother hypo Stroke Mother Heart Father Prostate Cancer Father Diabetes Sister Diabetes Maternal Grandmother other (Systelmic lupus erythematosis) Daughter other (sjogrens) Daughter Colon Cancer Paternal Aunt other (Other) Other Aunts and uncles on father's side with stroke history REVIEW OF SYSTEMS: General: The patient denies fatigue, denies weight loss, denies weight gain, denies feeling hot, and denies feelings of cold. Eyes: The patient denies glaucoma, denies eye injury/surgery, wears glasses or contacts. Ear/Nose/Throat: The patient notes allergies, denies hayfever, denies ear infections, and denies bloody noses. Cardiovascular: The patient denies chest pain, denies heart disease, denies high blood pressure,denies cardiac stent, denies prior heart attack, denies irregular heart beat, notes high cholesterol, denies poor circulation, denies heart failure, other cardiac issues, denies claudication, denies cold feet, denies peripheral arterial stent. Respiratory: The patient denies tuberculosis, denies pneumonia, denies frequent cough, denies pulmonary embolism, denies shortness of breath, and denies coughing up blood. Gastrointestinal: The patient denies difficulty swallowing, notes acid reflux, denies ulcers, denies vomiting, denies jaundice/hepatitis, denies gallbladder problems, denies black or tarry stools, denies hemorrhoids, denies bleeding from rectum, denies diverticulitis, denies constipation, denies diarrhea, denies loss of stool control, and denies hernias. Kidney/Bladder: The patient denies kidney stones, denies urine infections, and denies bloody urine. Skin: The patient denies a history of skin cancer, denies bleeding/changing moles, and denies a history of skin rash. Neurologic: The patient denies a history of epilepsy/convulsions, denies headaches, denies head/spinal injuries, and denies stroke/TIA. Psychiatric: The patient notes psychiatric medications, denies depression, and denies voices, denies substance abuse. Endocrine: The patient denies thyroid disorders, denies diabetes, and denies hormonal problems. Hematologic: The patient denies a history of bruising, denies bleeding, and denies anemia, denies blood clots. Infections: The patient denies a history of measles and mumps, denies rheumatic fever, and denies sexually transmitted diseases. Musculoskeletal: The patient denies back pain/injury, denies back problems, denies sciatica, denies knee/foot trouble, notes arthritis, or denies gout. Gynecological: menarche onset at age 11, , breast feeding 1 m, surgical menopause at age 35, denies exogenous hormones use PHYSICAL EXAMINATION: General: The patient is 66 year old female, well nourished, well hydrated in no acute distress. The patient is oriented to time, place, and person. VITALS: Blood pressure 142/86, pulse 114, temperature 37.3 C (99.1 F), height 157.5 cm (5' 2 ), weight 93.9 kg (207 lb), SpO2 95 %. Body mass index is 37.86 kg/m . Head: Normal cephalic, atraumatic Eyes: pupils are equally round, sclera are clear/anicteric Neck is supple with no tracheal deviation Chest: left breast biopsy site - no evidence of infection, slight ecchymosis Respiratory: Normal respiratory excursion and pattern. Abdominal exam: benign Extremities: no clubbing, cyanosis or edema. Neuro: non focal Psych: normal mood Assessment IMPRESSION: papilloma by needle core biopsy of left breast PLAN: I have discussed the above with the patient. I have discussed options of continued observation versus excisional biopsy of the previous biopsy site. I have explained the procedure to the patient. Wire localization of the marker clip placed during biopsy and then open excisional biopsy in the OR. I have counseled the patient as to the risks of the procedure, including but not limited to: infection, bleeding, injury to any blood vessels/nerves, scar tissue, wound infections, complications of anesthesia, etc. - the patient understands. The patient wishes to proceed with excisional biopsy. She wishes to have the procedure done at [facility]. I have answered all questions to the patient s satisfaction and the patient has no further questions. I have confirmed and edited as necessary, the PFSH and ROS obtained by others. . 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 I spent a total of 24 minutes on the date of the service which included preparing to see the patient with review of any pertinent laboratory studies/radiological imaging/medical records, [id number] patient care, obtaining oral medical history from the patient in this encounter, performing a medically appropriate examination, counseling and educating the patient/family/caregiver, and ordering and/or scheduling of medications/tests/procedures, and completing appropriate medical documentation. Jenifer Sauer MD documented in this encounter [facility] 03-15-2022 Note HNO ID: [id number] Author: RT Nic(R) Service: ? Author Type: Technologist Type: Progress Notes Filed: 03/15/2022 12:10 PM Note Text: Radiology Service Progress Note PATIENT NAME: Ewelina Roa DATE OF SERVICE: March 15, 2022 TIME: 12:10 PM PATIENT IDENTITY VERIFICATION COMPLETED USING TWO (2) IDENTIFIERS: Name and Date of confirmed by patient verbally. FALL SCREENING: Has the patient had 2 falls in the last year or 1 fall with injury or currently using an Ambulatory Assistive Device (Walker, Cane, Wheelchair, Crutches, etc.)? No PATIENT GENDER DATA: Female. status: : No status: NO. PATIENT RELEVANT IMPLANT DATA REVIEWED: Not Applicable RADIOLOGY DEPARTMENT: Biopsy PERIPHERAL IV DATA: Not applicable SIGNED BY: RT Nic(R) March 15, 2022 12:10 PM [facility] 02-22-2022 Miscellaneous Notes Patient has been identified by name and date of : Yes Pending Prescriptions Disp Refills OMEPRAZOLE 20 MG CAPSULE,DELAYED RELEASE 30 capsule 11 Sig: Take 1 capsule by mouth daily before breakfast. 1/2 hr before meal. ANGEL: No RX INSTRUCTIONS: Patient aware RX will be sent to pharmacy. No need to notify patient. Rosangela Pereira documented in this encounter [facility] 02-18-2022 History of Presen t illness Narrative Ewelina Roa 1955 REFERRING PHYSICIAN: Paulina Jolley MD CHIEF COMPLAINT: Consult (left breast ) HPI: The patient is a 66 year old female presents with abnormal left breast radiographs She denies palpable breast masses. She denies nipple discharge. She denies previous breast biopsies or breast surgeries. She notes no breast or ovarian cancer in her family. US 02/14/2022 left breast There is 0.4 cm x 0.6 cm x 0.3 cm oval nodule with a circumscribed margin in the left breast at 6 o'clock anterior depth 1 cm from the nipple. This oval nodule is hypoechoic. This correlates with mammography findings. Color flow imaging demonstrates that there is no vascularity present. No abnormalities were seen sonographically in the left axilla. IMPRESSION: SUSPICIOUS OF MALIGNANCY The 0.4 cm x 0.6 cm x 0.3 cm oval nodule in the left breast is at a low suspicion for malignancy. An ultrasound guided biopsy is recommended. PAST MEDICAL HISTORY Diagnosis Date Allergic rhinitis allergy injections; Dr. 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; was done for work around 1984 Schizophrenia, paranoid type (HCC) Type O blood, Rh negative T&C when had blood transfusion September 2014 VITAMIN D DEFICIENCY NOS 06/03/2007 PAST SURGICAL HISTORY Procedure Laterality Date DELIVERY ONLY 1981 , low cervical COLONOSCOPY FLX DX W/COLLJ SPEC WHEN PFRMD 04/28/2014 Colonoscopy ESOPHAGOGASTRODUODENOSCOPY TRANSORAL DIAGNOSTIC 04/28/2014 EGD PAST SURGICAL HISTORY OF age 5 eye PAST SURGICAL HISTORY OF 09/2014 right TKR PAST SURGICAL HISTORY OF left knee TKR PAST SURGICAL HISTORY OF 11/2015 right shoulder PAST SURGICAL HISTORY OF 05/23/16 left shoulder SEPTOPLASTY/SUBMUCOUS RESECJ W/WO CARTILAGE GRF 1983 Septoplasty TOTAL ABDOMINAL HYSTERECT W/WO RMVL TUBE OVARY 1988 Hysterectomy, CARLOS Current Outpatient Medications Medication Sig albuterol (PROVENTIL) 2.5 mg /3 mL (0.083 %) nebulizer solution Inhale by nebulizer over 5-15 minutes four (4) times a day as needed.(J45.20) Mild intermittent asthma without complication ipratropium (ATROVENT) 0.02 % nebulizer solution Use 2.5 mL via nebulizer four times daily as needed. As directed as needed. (J45.20) Mild intermittent asthma without complication fluticasone (FLONASE) 50 mcg/actuation nasal spray Use 2 Sprays in each nostril once daily as needed for cold/allergy symptoms. Rinse mouth after use. diclofenac (VOLTAREN) 1 % topical gel Apply 2 g to affected area daily at bedtime. Cholecalciferol, Vitamin D3, 125 mcg (5,000 unit) cap Take 1 capsule by mouth once daily. rosuvastatin (CRESTOR) 10 mg tablet Take 1 tablet by mouth daily at bedtime. pregabalin (LYRICA) 100 mg capsule Take 1 capsule by mouth twice daily for 180 days. albuterol HFA (VENTOLIN HFA) 90 mcg/actuation inhaler Inhale 2 Puffs as instructed every 4 hours as needed for wheezing/shortness of breath. omeprazole (PRILOSEC) 20 mg capsule Take 1 capsule by mouth daily before breakfast. 1/2 hr before meal. perphenazine 8 mg tablet Take 1 tablet by mouth daily at bedtime. ([facility]) [place]-3 Fatty Acids (FISH OIL) 500 mg cap Take by mouth once daily. clonazePAM (KLONOPIN) 0.5 mg tablet Take 1 tablet by mouth daily at bedtime. ([facility] gives RX) therapeutic multivitamin tablet Take 1 tablet by mouth once daily. sertraline (ZOLOFT) 50 mg tablet Take 1 tablet by mouth once daily. ALLERGIES: Seasonal Allergies PERSONAL HISTORY: Social History Tobacco Use Smoking status: Never Smoker Smokeless tobacco: Never Used Vaping Use Vaping Use: Never used Substance Use Topics Alcohol use: No Drug use: No FAMILY HISTORY Problem Relation Age of Onset Thyroid Mother hypo Stroke Mother Heart Father Prostate Cancer Father Diabetes Sister Diabetes Maternal Grandmother other (Systelmic lupus erythematosis) Daughter other (sjogrens) Daughter Colon Cancer Paternal Aunt other (Other) Other Aunts and uncles on father's side with stroke history The review of systems data was entered by the nurse and reviewed by pr Nursing Notes: Catie Max LPN 02/16/2022 3:07 PM Signed REVIEW OF SYSTEMS: General: The patient denies fatigue, denies weight loss, denies weight gain, denies feeling hot, and denies feelings of cold. Eyes: The patient denies glaucoma, denies eye injury/surgery, wears glasses or contacts. Ear/Nose/Throat: The patient notes allergies, denies hayfever, denies ear infections, and denies bloody noses. Cardiovascular: The patient denies chest pain, denies heart disease, denies high blood pressure,denies cardiac stent, denies prior heart attack, denies irregular heart beat, notes high cholesterol, denies poor circulation, denies heart failure, other cardiac issues, denies claudication, denies cold feet, denies peripheral arterial stent. Respiratory: The patient denies tuberculosis, denies pneumonia, denies frequent cough, denies pulmonary embolism, denies shortness of breath, and denies coughing up blood. Gastrointestinal: The patient denies difficulty swallowing, notes acid reflux, denies ulcers, denies vomiting, denies jaundice/hepatitis, denies gallbladder problems, denies black or tarry stools, denies hemorrhoids, denies bleeding from rectum, denies diverticulitis, denies constipation, denies diarrhea, denies loss of stool control, and denies hernias. Kidney/Bladder: The patient denies kidney stones, denies urine infections, and denies bloody urine. Skin: The patient denies a history of skin cancer, denies bleeding/changing moles, and denies a history of skin rash. Neurologic: The patient denies a history of epilepsy/convulsions, denies headaches, denies head/spinal injuries, and denies stroke/TIA. Psychiatric: The patient notes psychiatric medications, denies depression, and denies voices, denies substance abuse. Endocrine: The patient denies thyroid disorders, denies diabetes, and denies hormonal problems. Hematologic: The patient denies a history of bruising, denies bleeding, and denies anemia, denies blood clots. Infections: The patient denies a history of measles and mumps, denies rheumatic fever, and denies sexually transmitted diseases. Musculoskeletal: The patient denies back pain/injury, denies back problems, denies sciatica, denies knee/foot trouble, notes arthritis, or denies gout. Gynecological: menarche onset at age 11, , breast feeding 1 m, surgical menopause at age 35, denies exogenous hormones use When was patient's last Mammogram screening? 2021 Last Colonoscopy: 2013 Catie Max LPN PHYSICAL EXAMINATION: General: The patient is 66 year old female, well nourished, well hydrated in no acute distress. The patient is oriented to time, place, and person. VITALS: Blood pressure 126/90, pulse 115, temperature 36.4 C (97.6 F), height 157.5 cm (5' 2 ), weight 93.4 kg (206 lb), SpO2 95 %. Body mass index is 37.68 kg/m . Head Normocephalic. Sclera clear, disparate gaze, right eye stray. . Neck - supple with no jugular venous distention noted. Trachea is midline. No thyroid enlargement or thyroid nodules detected. No masses noted. Chest/breast no asymmetry of breasts noted, no suspicious skin lesions noted, no nipple discharge and both nipples everted, no breast masses noted Lungs clear to auscultation. Normal breath sounds. No rales/rhonchi/wheezing noted. No labored breathing noted, such as retractions. No cough heard. Heart normal S1 and S2 auscultated. No rubs/clicks/murmurs noted. Regular rate. Abdomen soft and benign. Difficult to determine if any masses or organomegaly due to body habitus. Extremities no calf tenderness noted. No pitting edema noted. Skin normal skin integrity. Lymph no cervical adenopathy detected, no supraclavicular adenopathy detected, no axillary adenopathy detected Neurological gait normal, no focal deficits noted Psych calm and appropriate RADIOLOGIC STUDIES: As Noted Assessment IMPRESSION: abnormal left breasts radiographs PLAN: I have discussed the above with the patient. I have reviewed the breast radiographs I have recommended US guided right needle core breast biopsy. I have explained the procedure to the patient. I will refer patient to [facility] imaging center. I told patient that I will call her with the results. The patient acknowledges the above. I have answered all questions to the patient s satisfaction and the patient has no further questions. I have confirmed and edited as necessary, the PFSH and ROS obtained by others. Consultation requested by Dr. Paulina Jolley for an opinion regarding patient's abnormal breast radiographs. My final recommendations will be communicated back to the requesting physician by way of shared Medical record or letter to requesting physician via US mail. . Diagnoses: (R92.8) Abnormal ultrasound of breast (primary encounter diagnosis) Return to Clinic: The patient is referred to [facility] imaging center. Medical Decision Making: Problems: Moderate: New problem with uncertain prognosis Data: Unique test result(s) reviewed: 1 Risk: Low: Low risk from testing/treatment Medical Decision Making Level: 3 - Low Jenifer Sauer MD documented in this encounter [facility] 02-16-2022 Nurse Note REVIEW OF SYSTEMS: General: The patient denies fatigue, denies weight loss, denies weight gain, denies feeling hot, and denies feelings of cold. Eyes: The patient denies glaucoma, denies eye injury/surgery, wears glasses or contacts. Ear/Nose/Throat: The patient notes allergies, denies hayfever, denies ear infections, and denies bloody noses. Cardiovascular: The patient denies chest pain, denies heart disease, denies high blood pressure,denies cardiac stent, denies prior heart attack, denies irregular heart beat, notes high cholesterol, denies poor circulation, denies heart failure, other cardiac issues, denies claudication, denies cold feet, denies peripheral arterial stent. Respiratory: The patient denies tuberculosis, denies pneumonia, denies frequent cough, denies pulmonary embolism, denies shortness of breath, and denies coughing up blood. Gastrointestinal: The patient denies difficulty swallowing, notes acid reflux, denies ulcers, denies vomiting, denies jaundice/hepatitis, denies gallbladder problems, denies black or tarry stools, denies hemorrhoids, denies bleeding from rectum, denies diverticulitis, denies constipation, denies diarrhea, denies loss of stool control, and denies hernias. Kidney/Bladder: The patient denies kidney stones, denies urine infections, and denies bloody urine. Skin: The patient denies a history of skin cancer, denies bleeding/changing moles, and denies a history of skin rash. Neurologic: The patient denies a history of epilepsy/convulsions, denies headaches, denies head/spinal injuries, and denies stroke/TIA. Psychiatric: The patient notes psychiatric medications, denies depression, and denies voices, denies substance abuse. Endocrine: The patient denies thyroid disorders, denies diabetes, and denies hormonal problems. Hematologic: The patient denies a history of bruising, denies bleeding, and denies anemia, denies blood clots. Infections: The patient denies a history of measles and mumps, denies rheumatic fever, and denies sexually transmitted diseases. Musculoskeletal: The patient denies back pain/injury, denies back problems, denies sciatica, denies knee/foot trouble, notes arthritis, or denies gout. When was patient's last Mammogram screening? 2021 Last Colonoscopy: 2013 Catie Max LPN documented in this encounter [facility] 02-14-2022 History of Presen t illness Narrative Radiology Service Progress Note PATIENT NAME: Ewelina Roa DATE OF SERVICE: February 14, 2022 TIME: 3:56 PM PATIENT IDENTITY VERIFICATION COMPLETED USING TWO (2) IDENTIFIERS: Name and Date of confirmed by patient verbally. FALL SCREENING: Has the patient had 2 falls in the last year or 1 fall with injury or currently using an Ambulatory Assistive Device (Walker, Cane, Wheelchair, Crutches, etc.)? No PATIENT GENDER DATA: Female. status: : No status: N/A PATIENT RELEVANT IMPLANT DATA REVIEWED: Not Applicable RADIOLOGY DEPARTMENT: Ultrasound PERIPHERAL IV DATA: Not applicable SIGNED BY: Shahrzad Marin RDMS RVT February 14, 2022 3:56 PM documented in this encounter [facility] 02-14-2022 History of Presen t illness Narrative Radiology Service Progress Note PATIENT NAME: Ewelina Roa DATE OF SERVICE: February 14, 2022 TIME: 2:11 PM PATIENT IDENTITY VERIFICATION COMPLETED USING TWO (2) IDENTIFIERS: Name and Date of confirmed by patient verbally. FALL SCREENING: Has the patient had 2 falls in the last year or 1 fall with injury or currently using an Ambulatory Assistive Device (Walker, Cane, Wheelchair, Crutches, etc.)? No PATIENT GENDER DATA: Female. status: : No status: NO. PATIENT RELEVANT IMPLANT DATA REVIEWED: Not Applicable RADIOLOGY DEPARTMENT: Mammography PERIPHERAL IV DATA: Not applicable SIGNED BY: RT Bethany(R) February 14, 2022 2:11 PM documented in this encounter [facility] 01-16-2022 Miscellaneous Notes Called and left a detailed voicemail notifying patient of providers message. Hospital phone number was left in case patient had any questions. Sugey Hernandez RN Filed order Needs diagnostic mammogram Will order when on a computer/workstation Patient calls and requests a MC message be sent once additional orders placed so she knows to call and schedule. Nadege Muse RN Pt called in and stated she was told that additional testing was required. I didn't see any orders for more testing. Please advise. documented in this encounter [facility] 01-10-2022 Miscellaneous Notes January 10, 2022 PID: [id number] Ewelina Roa [address] [address] Dear Ms. Roa, Your recent breast imaging exam on 01/09/2022 showed a possible finding that requires additional imaging studies for a complete evaluation. Most such findings are probably benign (not cancer). If you have a healthcare provider who ordered/prescribed your screening mammogram: Please call [phone] or EXT: [phone] to schedule an appointment for your additional imaging (if you have not already done so). If you DO NOT have a healthcare provider (ie you did not have an order/prescription for your screening mammogram): Please call to schedule an appointment for your additional imaging (if you have not already done so). You must have an order/prescription from your physician when calling to schedule your appointment. If your order/prescription is not electronic, you must bring the hard copy with you on the day of your exam to avoid delays. Your imaging studies and reports are kept on file at [facility] as part of your permanent medical record, and are available for your continuing care. Thank you for allowing us to help in meeting your health care needs. Sincerely, Dr. Tony Interpreting Radiologist [facility] (Additional imaging) documented in this encounter [facility] 01-05-2022 Miscellaneous Notes Faxed to Printed order Patient calling asking for new order to be sent to [facility] in [place] for her incontinence supplies. Patient said she gets 4 bags large Attends and 3 bags of wipes per month. Patient said she dribbles constantly. she was not given the phone or fax number. Pending order, needs diagnosis. Please advise documented in this encounter [facility] 12-12-2021 History of Presen t illness Narrative VIRTUAL VISIT PROGRESS NOTE This is a virtual visit using [employer] video visit. It required patient-provider interaction for the medical decision making as documented below. Ewelina Roa is a 66 year old female seen for asthma flare up. Got asthmatic bronchitis after working in yard and got really sick. Has had to sit up in chair last night. Allergies acting up too--itchy eyes. Clear phlegm that is thick. Benadryl 50 mg twice daily--makes her a little sleepy. Does not drive when taking. Worse than other times--mucus sticks in chest and makes hard to breath. Has to sit in recliner chair Prednisone had helped before. needs longer taper this time. Tnied tolerating statin. Will get labs . HISTORY REVIEWED (electronic chart updated): PAST MEDICAL HISTORY Diagnosis Date Allergic rhinitis allergy injections; Dr. 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; was done for work around 1984 Schizophrenia, paranoid type (HCC) Type O blood, Rh negative T&C when had blood transfusion September 2014 VITAMIN D DEFICIENCY NOS 06/03/2007 PAST SURGICAL HISTORY Procedure Laterality Date DELIVERY ONLY 1981 , low cervical COLONOSCOPY FLX DX W/COLLJ SPEC WHEN PFRMD 04/28/2014 Colonoscopy ESOPHAGOGASTRODUODENOSCOPY TRANSORAL DIAGNOSTIC 04/28/2014 EGD PAST SURGICAL HISTORY OF age 5 eye PAST SURGICAL HISTORY OF 09/2014 right TKR PAST SURGICAL HISTORY OF left knee TKR PAST SURGICAL HISTORY OF 11/2015 right shoulder PAST SURGICAL HISTORY OF 05/23/16 left shoulder SEPTOPLASTY/SUBMUCOUS RESECJ W/WO CARTILAGE GRF 1983 Septoplasty TOTAL ABDOMINAL HYSTERECT W/WO RMVL TUBE OVARY 1989 Hysterectomy, CARLOS FAMILY HISTORY Problem Relation Age of Onset Thyroid Mother hypo Stroke Mother Heart Father Prostate Cancer Father Diabetes Sister Diabetes Maternal Grandmother other (Systelmic lupus erythematosis) Daughter other (sjogrens) Daughter Colon Cancer Paternal Aunt other (Other) Other Aunts and uncles on father's side with stroke history Social History Tobacco Use Smoking status: Never Smoker Smokeless tobacco: Never Used Vaping Use Vaping Use: Never used Substance Use Topics Alcohol use: No Drug use: No Current Outpatient Medications Medication Sig albuterol (PROVENTIL) 2.5 mg /3 mL (0.083 %) nebulizer solution Inhale by nebulizer over 5-15 minutes four (4) times a day as needed.(J45.20) Mild intermittent asthma without complication ipratropium (ATROVENT) 0.02 % nebulizer solution Use 2.5 mL via nebulizer four times daily as needed. As directed as needed. (J45.20) Mild intermittent asthma without complication fluticasone (FLONASE) 50 mcg/actuation nasal spray Use 2 Sprays in each nostril once daily as needed for cold/allergy symptoms. Rinse mouth after use. predniSONE (DELTASONE) 10 mg tablet Take 4 tabs daily x 3 days, then 3 tabs x 3 days, 2 tabs x 3 days, then 1 tab x3 days with food. diclofenac (VOLTAREN) 1 % topical gel Apply 2 g to affected area daily at bedtime. Cholecalciferol, Vitamin D3, 125 mcg (5,000 unit) cap Take 1 capsule by mouth once daily. rosuvastatin (CRESTOR) 10 mg tablet Take 1 tablet by mouth daily at bedtime. pregabalin (LYRICA) 100 mg capsule Take 1 capsule by mouth twice daily for 180 days. albuterol HFA (VENTOLIN HFA) 90 mcg/actuation inhaler Inhale 2 Puffs as instructed every 4 hours as needed for wheezing/shortness of breath. omeprazole (PRILOSEC) 20 mg capsule Take 1 capsule by mouth daily before breakfast. 1/2 hr before meal. perphenazine 8 mg tablet Take 1 tablet by mouth daily at bedtime. ([facility]) [place]-3 Fatty Acids (FISH OIL) 500 mg cap Take by mouth once daily. clonazePAM (KLONOPIN) 0.5 mg tablet Take 1 tablet by mouth daily at bedtime. ([facility] gives RX) therapeutic multivitamin tablet Take 1 tablet by mouth once daily. sertraline (ZOLOFT) 50 mg tablet Take 1 tablet by mouth once daily. No current facility-administered medications for this visit. ALLERGIES Allergen Reactions Seasonal Allergies Other: See Comments Stuffy nose, watery eyes REVIEW OF SYSTEMS: As noted in HPI PHYSICAL EXAMINATION: VIDEO EXAM: (if completed, performed via video enabled technology) GENERAL: alert and appropriate, in no distress, well-hydrated, well nourished and happy, smiling, interactive HEAD: normocephalic, no abnormality or lesion noted EYES: no injection and visual acuity is grossly normal RESPIRATORY: breathing non-labored and audible wheezing with forced expirations ASSESSMENT/PLAN: 1. Exacerbation of asthma, unspecified asthma severity, unspecified whether persistent - ICD9: 493.92, ICD10: J45.901 (primary diagnosis) - factors affecting control of asthma include allergic rhinitis and obesity Updated RX for albuterol and atrovent given - Avoidance of triggers recommended - IPRATROPIUM BROMIDE 0.02 % SOLUTION FOR INHALATION--patient states that this has helped her when has exacerbation. Reviewed that was first given by Rozina Jade in 2011. Okay prescription refill since has been helping. Will get PFTs. - PREDNISONE 10 MG TABLET 2. Breast cancer screening by mammogram - ICD9: V76.12, ICD10: Z12.31 - Set up for mammogram, yearly mammogram recommended - [facility] SCREEN[facility] 3. Mild intermittent asthma without complication - ICD9: 493.90, ICD10: J45.20 Check spirometry after over acute asthma exacerbation. Further evaluation and treatment as indicated. - ALBUTEROL SULFATE 2.5 MG/3 ML (0.083 %) SOLUTION FOR NEBULIZATION - SPIROMETRY - BASELINE AND POST DILATOR 4. Seasonal allergic rhinitis, unspecified trigger - ICD9: 477.9, ICD10: J30.2 Benadryl as needed. Add: - FLUTICASONE PROPIONATE 50 MCG/ACTUATION NASAL SPRAY,SUSPENSION 5. Hyperlipidemia--will check follow up lipids now that is doing well on Crestor. There are no Patient Instructions on file for this visit. Paulina Jolley MD documented in this encounter [facility] 10-24-2021 History of Presen t illness Narrative This note was created using [employer]. Subjective Ewelina Roa is a 66 year old female. Patient presents with: F/U 6 months SUBJECTIVE: Ewelina Roa is a 66 year old year old lady here today for 6 month follow up appointment for review of medical conditions. Ran out of Vitamin D. Not feeling as well at lower Vitamin D level. Noted that sister is on a statin. Dad needed to be on statin too. Wants to work on better diet and being more active. Great grandson 2yo so will be busy running around after him. Another one due December. Noted issues with PENALOZA a with her asthma. smokes in the house. Not too bad with coughing spells. Lyrica still helping for the pain. Goes to pain management and also gets injections and shots when needed. Been a,most a year since last SI joint injeccion--feels due for one. PAST MEDICAL HISTORY Diagnosis Date Allergic rhinitis allergy injections; Dr. 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 Do not start before May 27, 2021. omeprazole (PRILOSEC) 20 mg capsule Take 1 capsule by mouth daily before breakfast. 1/2 hr before meal. diclofenac (VOLTAREN) 1 % topical gel Apply 2 g to affected area daily at bedtime. ipratropium (ATROVENT) 0.02 % nebulizer solution Use 2.5 mL via nebulizer four times daily. As directed as needed. (J45.20) Mild intermittent asthma without complication albuterol (PROVENTIL) 2.5 mg /3 mL (0.083 %) nebulizer solution Inhale by nebulizer over 5-15 minutes four (4) times a day as needed.(J45.20) Mild intermittent asthma without complication perphenazine 8 mg tablet Take 1 tablet by mouth daily at bedtime. ([facility]) [place]-3 Fatty Acids (FISH OIL) 500 mg cap Take by mouth once daily. clonazePAM (KLONOPIN) 0.5 mg tablet Take 1 tablet by mouth daily at bedtime. ([facility] gives RX) therapeutic multivitamin tablet Take 1 tablet by mouth once daily. sertraline (ZOLOFT) 50 mg tablet Take 1 tablet by mouth once daily. No current facility-administered medications for this visit. FAMILY HISTORY Problem Relation Age of Onset Thyroid Mother hypo Stroke Mother Heart Father Prostate Cancer Father Diabetes Sister Diabetes Maternal Grandmother other (Systelmic lupus erythematosis) Daughter other (sjogrens) Daughter Colon Cancer Paternal Aunt other (Other) Other Aunts and uncles on father's side with stroke history Review of Systems Objective BP 128/84 Pulse 100 Wt 90.3 kg (199 lb) BMI 36.40 kg/m Last 5 Encounter Wt Readings: Date: Wt: 10/24/2021 90.3 kg (199 lb) 08/12/2021 90.7 kg (200 lb) 09/29/2019 84.4 kg (186 lb) 09/18/2019 88.7 kg (195 lb 9.6 oz) 09/17/2019 86.9 kg (191 lb 9.6 oz) No waist measurement recorded Estimated body mass index is 36.4 kg/m as calculated from the following: Height as of 09/18/19: 157.5 cm (5' 2 ). Weight as of this encounter: 90.3 kg (199 lb). Last 5 Encounter BP Readings: Date: BP: 10/24/2021 128/84 08/12/2021 122/80 09/18/2019 164/91 09/17/2019 144/84 08/21/2019 128/88 10/24/21 0920 BP: 128/84 Pulse: 100 Weight: 90.3 kg (199 lb) Physical Exam Constitutional: Appearance: Normal appearance. HENT: Head: Normocephalic. Eyes: Conjunctiva/sclera: Conjunctivae normal. Cardiovascular: Rate and Rhythm: Normal rate and regular rhythm. Heart sounds: Normal heart sounds. Pulmonary: Effort: Pulmonary effort is normal. Breath sounds: Normal breath sounds. Skin: General: Skin is warm and dry. Neurological: General: No focal deficit present. Mental Status: She is alert and oriented to person, place, and time. Psychiatric: Mood and Affect: Mood normal. Behavior: Behavior normal. Thought Content: Thought content normal. Judgment: Judgment normal. Component Latest Ref Rng & Units 09/08/2020 01/26/2021 10/17/2021 Protein, Total 6.3 - 8.0 g/dL 7.1 6.5 7.1 Albumin 3.9 - 4.9 g/dL 4.4 4.3 4.2 Calcium 8.5 - 10.2 mg/dL 9.5 9.2 9.4 Bilirubin, Total 0.2 - 1.3 mg/dL 0.4 0.3 0.3 Alkaline Phosphatase 34 - 123 U/L 107 107 118 AST 13 - 35 U/L 31 24 26 Glucose 74 - 99 mg/dL 115 (H) 121 (H) 110 (H) BUN 7 - 21 mg/dL 11 12 12 Creatinine 0.58 - 0.96 mg/dL 0.83 0.79 0.93 Sodium 136 - 144 mmol/L 141 142 141 Potassium 3.7 - 5.1 mmol/L 4.5 4.2 3.8 Chloride 97 - 105 mmol/L 104 107 (H) 103 CO2 22 - 30 mmol/L 25 23 27 Anion Gap 9 - 18 mmol/L 12 12 11 ALT 7 - 38 U/L 29 26 27 eGFR- >60 >60 eGFR-All Other Races . >60 >60 eGFR >=60 mL/min/1.73m 69 WBC 3.70 - 11.00 k/uL 6.47 6.09 RBC 3.90 - 5.20 m/uL 4.79 4.41 Hemoglobin 11.5 - 15.5 g/dL 12.9 12.2 Hematocrit 36.0 - 46.0 % 40.5 36.9 MCV 80.0 - 100.0 fL 84.6 83.7 MCH 26.0 - 34.0 pG 26.9 27.7 MCHC 30.5 - 36.0 g/dL 31.9 33.1 RDW-CV 11.5 - 15.0 % 14.1 14.1 Platelet Count 150 - 400 k/uL 274 253 MPV 9.0 - 12.7 fL 11.0 11.4 Absolute nRBC <0.01 k/uL <0.01 <0.01 Cholesterol, Total <200 mg/dL 265 (H) 270 (H) Triglyceride <150 mg/dL 203 (H) 187 (H) HDL Cholesterol >39 mg/dL 38 (L) 37 (L) LDL Cholesterol <100 mg/dL 186 (H) 196 (H) Non HDL Cholesterol <130 mg/dL 227 (H) 233 (H) Fasting Time hrs 12 13 VLDL Cholesterol <30 mg/dL 41 (H) 37 (H) TC:HDL Ratio <5.10 6.97 (H) 7.30 (H) LDL:HDL Ratio <2.54 4.89 (H) 5.30 (H) Hemoglobin A1C 4.3 - 5.6 % 6.1 (H) Estimated Average Glucose mg/dL 128 Vitamin D 25 Hydroxy 31.0 - 80.0 ng/mL 19.4 (L) 30.8 (L) 17.5 (L) Assessment and Plan Encounter Diagnosis ICD-10-CM 1. Vitamin D deficiency E55.9 VITAMIN D 25 HYDROXY 2. Mixed hyperlipidemia E78.2 LIPID PANEL BASIC LIPID PANEL BASIC 3. Impaired glucose metabolism R73.09 COMP METABOLIC PANEL HGB A1C 4. Primary localized osteoarthrosis of shoulder region, left M19.012 diclofenac (VOLTAREN) 1 % topical gel left > right; had left shoulder surgery May, right shoulder November 5. S/p total knee replacement, bilateral Z96.653 diclofenac (VOLTAREN) 1 % topical gel 6. Chronic bilateral low back pain with bilateral sciatica M54.42 diclofenac (VOLTAREN) 1 % topical gel M54.41 pregabalin (LYRICA) [address] Youssef taking care of 7. Fibromyalgia M79.7 diclofenac (VOLTAREN) 1 % topical gel pregabalin (LYRICA) 100 mg capsule 8. Encounter for long-term current use of medication Z79.899 COMP METABOLIC PANEL CBC HEPATIC FUNCTION PNL ASSESSMENT/PLAN: 1. Vitamin D deficiency - ICD9: 268.9, ICD10: E55.9 (primary diagnosis) Needs to resume replacement - VITAMIN D 25 HYDROXY 2. Mixed hyperlipidemia - ICD9: 272.2, ICD10: E78.2 - poor control - Begin treatment with rosuvastatin (Crestor) 10 mg - LIPID PANEL BASIC - LIPID PANEL BASIC 3. Impaired glucose metabolism - ICD9: 790.29, ICD10: R73.09 Needs to keep working on diet and exercise with lifestyle changes for effective weight loss as well as prevention of DM, and control of BP and lipids. Plans as noted in HPI - COMP METABOLIC PANEL - HGB A1C 4. Primary localized osteoarthrosis of shoulder region, left - ICD9: 715.11, ICD10: M19.012 Stay on same meds - DICLOFENAC 1 % TOPICAL GEL 5. S/p total knee replacement, bilateral - ICD9: V43.65, ICD10: Z96.653 Stay on same meds - DICLOFENAC 1 % TOPICAL GEL 6. Chronic bilateral low back pain with bilateral sciatica - ICD9: 724.2, 724.3, 338.29, ICD10: M54.42, M54.41, G89.29 Following with Mikael - Patient given instructions use of medications as ordered, intermittent rest, weight loss and continue management by Dr. Youssef - DICLOFENAC 1 % TOPICAL GEL - PREGABALIN 100 MG CAPSULE 7. Fibromyalgia - ICD9: 729.1, ICD10: M79.7 Continue present management. - DICLOFENAC 1 % TOPICAL GEL - PREGABALIN 100 MG CAPSULE 8. Encounter for long-term current use of medication - ICD9: V58.69, ICD10: Z79.899 - COMP METABOLIC PANEL - CBC - HEPATIC FUNCTION PNL Paulina Jolley MD documented in this encounter [facility] documented as of this encounter (statuses as of 12/12/2021) [facility] History of Past illness Narrative* Problem Noted Date Resolved Date Hypokalemia 09/21/2019 09/22/2019 Choledocholithiasis 09/18/2019 09/22/2019 Knee pain, bilateral 07/24/2013 02/22/2020 Bilateral shoulder pain 07/24/2013 02/22/20 20 Pain in joint, shoulder region 06/04/2013 0 02/22/2020 Pain in joint, lower leg 06/04/2013 020 documented as of this encounter (statuses as of 01/05/2022) [facility] History of Past illness Narrative* Problem Noted Date Resolved Date Hypokalemia 09/21/2019 09/22/2019 Choledocholithiasis 09/18/2019 09/22/2019 Knee pain, bilateral 07/24/2013 02/22/2020 Bilateral shoulder pain 07/24/2013 02/22/20 Pain in joint, shoulder region 06/04/2013 0 02/22/2020 Pain in joint, lower leg 06/04/2013 020 documented as of this encounter (statuses as of 01/12/2022) [facility] History of Past illness Narrative* Problem Noted Date Resolved Date Hypokalemia 09/21/2019 09/22/2019 Choledocholithiasis 09/18/2019 09/22/2019 Knee pain, bilateral 07/24/2013 02/22/2020 Bilateral shoulder pain 07/24/2013 02/22/20 20 Pain in joint, shoulder region 06/04/2013 0 02/22/2020 Pain in joint, lower leg 06/04/2013 020 documented as of this encounter (statuses as of 01/15/2022) [facility] History of Past illness Narrative* Problem Noted Date Resolved Date Hypokalemia 09/21/2019 09/22/2019 Choledocholithiasis 09/18/2019 09/22/2019 Knee pain, bilateral 07/24/2013 02/22/2020 Bilateral shoulder pain 07/24/2013 02/22/20 20 Pain in joint, shoulder region 06/04/2013 0 02/22/2020 Pain in joint, lower leg 06/04/2013 020 documented as of this encounter (statuses as of 01/16/2022) [facility] History of Past illness Narrative* Problem Noted Date Resolved Date Hypokalemia 09/21/2019 09/22/2019 Choledocholithiasis 09/18/2019 09/22/2019 Knee pain, bilateral 07/24/2013 02/22/2020 Bilateral shoulder pain 07/24/2013 02/22/20 20 Pain in joint, shoulder region 06/04/2013 0 02/22/2020 Pain in joint, lower leg 06/04/2013 020 documented as of this encounter (statuses as of 02/15/2022) [facility] History of Past illness Narrative* Problem Noted Date Resolved Date Hypokalemia 09/21/2019 09/22/2019 Choledocholithiasis 09/18/2019 09/22/2019 Knee pain, bilateral 07/24/2013 02/22/2020 Bilateral shoulder pain 07/24/2013 02/22/20 Pain in joint, shoulder region 06/04/2013 0 02/22/2020 Pain in joint, lower leg 06/04/2013 020 documented as of this encounter (statuses as of 02/15/2022) [facility] History of Past illness Narrative* Problem Noted Date Resolved Date Hypokalemia 09/21/2019 09/22/2019 Choledocholithiasis 09/18/2019 09/22/2019 Knee pain, bilateral 07/24/2013 02/22/2020 Bilateral shoulder pain 07/24/2013 02/22/20 20 Pain in joint, shoulder region 06/04/2013 0 02/22/2020 Pain in joint, lower leg 06/04/2013 020 documented as of this encounter (statuses as of 02/18/2022) [facility] History of Past illness Narrative* Problem Noted Date Resolved Date Hypokalemia 09/21/2019 09/22/2019 Choledocholithiasis 09/18/2019 09/22/2019 Knee pain, bilateral 07/24/2013 02/22/2020 Bilateral shoulder pain 07/24/2013 02/22/20 20 Pain in joint, shoulder region 06/04/2013 0 02/22/2020 Pain in joint, lower leg 06/04/2013 020 documented as of this encounter (statuses as of 02/22/2022) [facility] History of Past illness Narrative* Problem Noted Date Resolved Date Hypokalemia 09/21/2019 09/22/2019 Choledocholithiasis 09/18/2019 09/22/2019 Knee pain, bilateral 07/24/2013 02/22/2020 Bilateral shoulder pain 07/24/2013 02/22/20 20 Pain in joint, shoulder region 06/04/2013 0 02/22/2020 Pain in joint, lower leg 06/04/2013 020 documented as of this encounter (statuses as of 03/24/2022) [facility] History of Past illness Narrative* Problem Noted Date Resolved Date Hypokalemia 09/21/2019 09/22/2019 Choledocholithiasis 09/18/2019 09/22/2019 Knee pain, bilateral 07/24/2013 02/22/2020 Bilateral shoulder pain 07/24/2013 02/22/20 Pain in joint, shoulder region 06/04/2013 0 02/22/2020 Pain in joint, lower leg 06/04/2013 020 documented as of this encounter (statuses as of 04/24/2022) [facility] History of Past illness Narrative* Problem Noted Date Resolved Date Hypokalemia 09/21/2019 09/22/2019 Choledocholithiasis 09/18/2019 09/22/2019 Knee pain, bilateral 07/24/2013 02/22/2020 Bilateral shoulder pain 07/24/2013 02/22/20 20 Pain in joint, shoulder region 06/04/2013 0 02/22/2020 Pain in joint, lower leg 06/04/2013 020 documented as of this encounter (statuses as of 04/28/2022) [facility] History of Past illness Narrative* Problem Noted Date Resolved Date Hypokalemia 09/21/2019 09/22/2019 Choledocholithiasis 09/18/2019 09/22/2019 Knee pain, bilateral 07/24/2013 02/22/2020 Bilateral shoulder pain 07/24/2013 02/22/20 20 Pain in joint, shoulder region 06/04/2013 0 02/22/2020 Pain in joint, lower leg 06/04/2013 020 documented as of this encounter (statuses as of 05/15/2022) [facility] History of Past illness Narrative* Problem Noted Date Resolved Date Hypokalemia 09/21/2019 09/22/2019 Choledocholithiasis 09/18/2019 09/22/2019 Knee pain, bilateral 07/24/2013 02/22/2020 Bilateral shoulder pain 07/24/2013 02/22/20 20 Pain in joint, shoulder region 06/04/2013 0 02/22/2020 Pain in joint, lower leg 06/04/2013 020 documented as of this encounter (statuses as of 05/16/2022) [facility] History of Past illness Narrative* Problem Noted Date Resolved Date Hypokalemia 09/21/2019 09/22/2019 Choledocholithiasis 09/18/2019 09/22/2019 Knee pain, bilateral 07/24/2013 02/22/2020 Bilateral shoulder pain 07/24/2013 02/22/20 Pain in joint, shoulder region 06/04/2013 0 02/22/2020 Pain in joint, lower leg 06/04/2013 020 documented as of this encounter (statuses as of 08/04/2022) [address]17-2020 History of Past illness Narrative* Problem Noted Date Resolved Date Hypokalemia 09/21/2019 09/22/2019 Choledocholithiasis 09/18/2019 09/22/2019 Knee pain, bilateral 07/24/2013 02/22/2020 Bilateral shoulder pain 07/24/2013 02/22/20 20 Pain in joint, shoulder region 06/04/2013 0 02/22/2020 Pain in joint, lower leg 06/04/2013 020 documented as of this encounter (statuses as of 09/25/2022) [facility] History of Past illness Narrative* Problem Noted Date Resolved Date Hypokalemia 09/21/2019 09/22/2019 Choledocholithiasis 09/18/2019 09/22/2019 Knee pain, bilateral 07/24/2013 02/22/2020 Bilateral shoulder pain 07/24/2013 02/22/20 20 Pain in joint, shoulder region 06/04/2013 0 02/22/2020 Pain in joint, lower leg 06/04/2013 020 documented as of this encounter (statuses as of 10/09/2022) [facility] History of Past illness Narrative* Problem Noted Date Resolved Date Hypokalemia 09/21/2019 09/22/2019 Choledocholithiasis 09/18/2019 09/22/2019 Knee pain, bilateral 07/24/2013 02/22/2020 Bilateral shoulder pain 07/24/2013 02/22/20 20 Pain in joint, shoulder region 06/04/2013 0 02/22/2020 Pain in joint, lower leg 06/04/2013 020 documented as of this encounter (statuses as of 11/19/2022) [facility] History of Past illness Narrative* Problem Noted Date Diagnosed Date Resolved Date Hypokalemia 09/21/2019 09/22/2019 Choledocholithiasis 09/18/2019 09/22/19 20 Knee pain, bilateral 07/24/2013 020 Bilateral shoulder pain 07/24/201302/03 Pain in joint, shoulder region 06/04/2013 02/22/2020 Pain in joint, lower leg 06/04/2013 documented as of this encounter (statuses as of 05/18/2023) [facility] History of Past illness Narrative* Problem Noted Date Diagnosed Date Resolved Date Hypokalemia 09/21/2019 09/22/2019 Choledocholithiasis 09/18/2019 09/22/19 20 Knee pain, bilateral 07/24/2013 020 Bilateral shoulder pain 07/24/201302/03 Pain in joint, shoulder region 06/04/2013 02/22/2020 Pain in joint, lower leg 06/04/2013 documented as of this encounter (statuses as of 06/09/2023) [facility] History of Past illness Narrative* Problem Noted Date Diagnosed Date Resolved Date Hypokalemia 09/21/2019 09/22/2019 Choledocholithiasis 09/18/2019 09/22/19 20 Knee pain, bilateral 07/24/2013 020 Bilateral shoulder pain 07/24/201302/03 Pain in joint, shoulder region 06/04/2013 02/22/2020 Pain in joint, lower leg 06/04/2013 documented as of this encounter (statuses as of 06/28/2023) [facility] History of Past illness Narrative* Problem Noted Date Diagnosed Date Resolved Date Hypokalemia 09/21/2019 09/22/2019 Choledocholithiasis 09/18/2019 09/22/19 20 Knee pain, bilateral 07/24/2013 020 Bilateral shoulder pain 07/24/201302/03 Pain in joint, shoulder region 06/04/2013 02/22/2020 Pain in joint, lower leg 06/04/2013 documented as of this encounter (statuses as of 07/02/2023) [facility] History of Past illness Narrative* Problem Noted Date Diagnosed Date Resolved Date Hypokalemia 09/21/2019 09/22/2019 Choledocholithiasis 09/18/2019 09/22/19 20 Knee pain, bilateral 07/24/2013 020 Bilateral shoulder pain 07/24/201302/03 Pain in joint, shoulder region 06/04/2013 02/22/2020 Pain in joint, lower leg 06/04/2013 documented as of this encounter (statuses as of 07/15/2023) [facility] History of Past illness Narrative* Problem Noted Date Diagnosed Date Resolved Date Hypokalemia 09/21/2019 09/22/2019 Choledocholithiasis 09/18/2019 09/22/19 20 Knee pain, bilateral 07/24/2013 020 Bilateral shoulder pain 07/24/201302/03 Pain in joint, shoulder region 06/04/2013 02/22/2020 Pain in joint, lower leg 06/04/2013 documented as of this encounter (statuses as of 07/16/2023) [facility] History of Past illness Narrative* Problem Noted Date Diagnosed Date Resolved Date Hypokalemia 09/21/2019 09/22/2019 Choledocholithiasis 09/18/2019 09/22/19 20 Knee pain, bilateral 07/24/2013 020 Bilateral shoulder pain 07/24/201302/03 Pain in joint, shoulder region 06/04/2013 02/22/2020 Pain in joint, lower leg 06/04/2013 documented as of this encounter (statuses as of 07/17/2023) [facility] History of Past illness Narrative* Problem Noted Date Diagnosed Date Resolved Date Hypokalemia 09/21/2019 09/22/2019 Choledocholithiasis 09/18/2019 09/22/19 20 Knee pain, bilateral 07/24/2013 020 Bilateral shoulder pain 07/24/201302/03 Pain in joint, shoulder region 06/04/2013 02/22/2020 Pain in joint, lower leg 06/04/2013 documented as of this encounter (statuses as of 08/05/2023) [facility] History of Past illness Narrative* Problem Noted Date Diagnosed Date Resolved Date Hypokalemia 09/21/2019 09/22/2019 Choledocholithiasis 09/18/2019 09/22/19 20 Knee pain, bilateral 07/24/2013 020 Bilateral shoulder pain 07/24/201302/03 Pain in joint, shoulder region 06/04/2013 02/22/2020 Pain in joint, lower leg 06/04/2013 documented as of this encounter (statuses as of 08/05/2023) [facility] History of Past illness Narrative* Problem Noted Date Diagnosed Date Resolved Date Hypokalemia 09/21/2019 09/22/2019 Choledocholithiasis 09/18/2019 09/22/19 20 Knee pain, bilateral 07/24/2013 020 Bilateral shoulder pain 07/24/201302/03 Pain in joint, shoulder region 06/04/2013 02/22/2020 Pain in joint, lower leg 06/04/2013 documented as of this encounter (statuses as of 09/12/2023) [facility] History of Past illness Narrative* Problem Noted Date Diagnosed Date Resolved Date Hypokalemia 09/21/2019 09/22/2019 Choledocholithiasis 09/18/2019 09/22/19 20 Knee pain, bilateral 07/24/2013 020 Bilateral shoulder pain 07/24/201302/03 Pain in joint, shoulder region 06/04/2013 02/22/2020 Pain in joint, lower leg 06/04/2013 documented as of this encounter (statuses as of 09/13/2023) [facility] Exacerbation of asthma, unspecified asthma severity, unspecified whether persistent- Primary Breast cancer screening by mammogram Mild intermittent asthma without complication Unspecified asthma Seasonal allergic rhinitis, unspecified trigger Mixed hyperlipidemia [facility] Diagnosis Continuous leakage of urine- Primary Continuous leakage DDD (degenerative disc disease), lumbosacral Degeneration of lumbar or lumbosacral intervertebral disc Back pain of lumbar region with sciatica [facility] Diagnosis Vitamin D deficiency- Primary Unspecified vitamin D deficiency Mixed hyperlipidemia Impaired glucose metabolism Impaired glucose tolerance test Primary localized osteoarthrosis of shoulder region, left S/p total knee replacement, 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 Fibromyalgia Mylagia and myositis, unspecified Encounter for long-term current use of medication [facility] Diagnosis Abnormal mammogram- Primary Abnormal mammogram, unspecified [facility] Diagnosis Abnormal mammogram Abnormal mammogram, unspecified [facility] Diagnosis Abnormal mammogram Abnormal mammogram, unspecified [facility] Diagnosis Abnormal ultrasound of breast- Primary Other (abnormal) findings on radiological examination of breast [facility] Diagnosis Gastroesophageal reflux disease without esophagitis Esophageal reflux [facility] Diagnosis 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 [facility] Diagnosis Status post left breast biopsy- Primary Other postprocedural status [facility] Diagnosis Chronic bilateral low back pain with bilateral sciatica Fibromyalgia Mylagia and myositis, unspecified [facility] Diagnosis Impaired glucose metabolism- Primary Impaired glucose tolerance test Vitamin D deficiency Unspecified vitamin D deficiency Mixed hyperlipidemia Seasonal allergic rhinitis, unspecified trigger Contusion of right knee, subsequent encounter Encounter for immunization Need for other specified prophylactic vaccination against single bacterial disease Breast cancer screening by mammogram Encounter for long-term current use of medication Schizophrenia, unspecified type (HCC) [facility] Diagnosis Exacerbation of asthma, unspecified asthma severity, unspecified whether persistent- Primary Acute lower respiratory infection Other diseases of respiratory system, not elsewhere classified documented in this encounter [facility] note* Diagnosis Seasonal allergic rhinitis, unspecified trigger documented in this encounter [facility] note* Diagnosis Breast cancer screening by mammogram documented in this encounter [facility] note* Diagnosis Asthma, unspecified asthma severity, unspecified whether complicated, unspecified whether persistent- Primary documented in this encounter [facility] note* Diagnosis Seasonal allergic rhinitis, unspecified trigger documented in this encounter [facility] note* Diagnosis Exacerbation of asthma, unspecified asthma severity, unspecified whether persistent- Primary Mild intermittent asthma without complication Unspecified asthma documented in this encounter [facility] note* Diagnosis Chronic bilateral low back pain with bilateral sciatica Fibromyalgia Mylagia and myositis, unspecified documented in this encounter [facility] note* Diagnosis Chronic bilateral low back pain with bilateral sciatica Fibromyalgia Mylagia and myositis, unspecified documented in this encounter [facility] note* Diagnosis Mild intermittent asthma without complication- Primary Unspecified asthma Chronic bilateral low back pain with bilateral sciatica OSKAR (obstructive sleep apnea) Obstructive sleep apnea (adult) (pediatric) Fibromyalgia Mylagia and myositis, unspecified Gastroesophageal reflux disease without esophagitis Esophageal reflux Daytime sleepiness Witnessed apneic spells Apnea Loud snoring Colon cancer screening Special screening for malignant neoplasms, colon Encounter for immunization Need for other specified prophylactic vaccination against single bacterial disease Breast cancer screening by mammogram Class 2 obesity due to excess calories with body mass index (BMI) of 38.0 to 38.9 in adult, unspecified whether serious comorbidity present Vitamin D deficiency Unspecified vitamin D deficiency Hypermagnesemia Disorders of magnesium metabolism Impaired glucose metabolism Impaired glucose tolerance test Mixed hyperlipidemia Encounter for long-term current use of medication documented in this encounter [facility] for referral (narrative)* Outpatient Procedure (Routine) - Pending Review Specialty Diagnoses / Procedures Referred By Contac t Referred To [facility] Diagnoses Mild intermittent asthma without complication Procedures SPIROMETRY - BASELINE AND POST DILATOR BRNCDILAT RSPSE SPMTRY PRE&POST-BRNCDILAT Paulina Gaitan MD [address] [place] [address] [facility] [place] [address] [place] [address] Referral ID Status Reason Start Date Expiration Date Visits Requested Visits Authorized [id number] Pending Review Auto-Generat ed Referral 12/12/2021 01/11/2023 1 1 * Consult, Test, Treat (Routine) - Pending Review Specialty Diagnoses / Procedures Referred By Alana guardado Referred To Contact [facility] Diagnoses Breast cancer screening by mammogram Procedures SEE SCREENING SCREENING MAMMOGRAPHY BI 2-[place] [address] [place] [address] [facility] [address] [place] [address] Referral ID Status Reason Start Date Expiration Date Visits Requested Visits Authorized [id number] Pending Review Auto-Generat ed Referral 12/12/2021 03/12/2022 3 3 [facility] for referral (narrative)* Diagnostic Procedure Only (Routine) - Authorized Specialty Diagnoses / Procedures Referred By Alana guardado Referred To Contact [facility] Diagnoses Abnormal mammogram Procedures US BREAST LTD LT US BREAST UNI REAL TIME WITH IMAGE LIMITED Paulina Jolley MD [address] [place] [address] [facility] [address] [place] [address] Referral ID Status Reason Start Date Expiration Date Visits Requested Visits Authorized [id number] Authorized Auto-Generat ed Referral 01/15/2022 02/14/2023 1 1 * Diagnostic Procedure Only (Routine) - Authorized Specialty Diagnoses / Procedures Referred By Alana guardado Referred To Contact [facility] Diagnoses Abnormal mammogram Procedures SEE DIAGNOSTIC LT DIAGNOSTIC MAMMOGRAPHY COMPUTER-AIDED DETCJ UNI Paulina Jolley MD [address] [place] [address] [facility] [address] [place] [address] Referral ID Status Reason Start Date Expiration Date Visits Requested Visits Authorized [id number] Authorized Auto-Generat ed Referral 01/15/2022 02/14/2023 1 1 [facility] for referral (narrative)* Diagnostic Procedure Only (Routine) - Closed Specialty Diagnoses / Procedures Referred By Alana t Referred To Contact [facility] Diagnoses Abnormal mammogram Procedures US BREAST LTD LT US BREAST UNI REAL TIME WITH IMAGE LIMITED Paulina Jolley MD [address] [place] [address] [facility] [address] [place] [address] Referral ID Status Reason Start Date Expiration Date V isits Requested Visits Authorized [id number] Closed Auto-Generate d Referral 01/15/2022 02/14/2023 1 1 [facility] for referral (narrative)* Diagnostic Procedure Only (Routine) - Pending Review Specialty Diagnoses / Procedures Referred By Contac t Referred To Contact [facility] Diagnoses Abnormal ultrasound of breast Procedures US BIOPSY BREAST LT BX BREAST W/DEVICE 1ST LESION ULTRASOUND Jenifer Dunne MD [address] [place] [address] [facility] [address] [place] [address] Referral ID Status Reason Start Date Expiration Date Visits Requested Visits Authorized [id number] Pending Review Auto-Generat ed Referral 02/16/2022 03/18/2023 1 1 [facility] for referral (narrative)* Diagnostic Procedure Only (Routine) - Closed Specialty Diagnoses / Procedures Referred By Contac t Referred To Contact [facility] Diagnoses Breast cancer screening by mammogram Procedures SEE SCREENING W EDUARDO SCREENING DIGITAL BREAST TOMOSYNTHESIS BI SCREENING MAMMOGRAPHY BI 2-VIEW BREAST INC CAD Paulina Jolley MD [address] [place] [address] [facility] [address] [place] [address] Referral ID Status Reason Start Date Expiration Date V isits Requested Visits Authorized [id number] Closed Auto-Generate d Referral 06/26/2022 07/26/2023 1 1 [facility] for referral (narrative)* Diagnostic Procedure Only (Routine) - Authorized Specialty Diagnoses / Procedures Referred By Ellaac t Referred To Contact [facility] Diagnoses Breast cancer screening by mammogram Procedures SEE SCREENING W EDUARDO SCREENING DIGITAL BREAST TOMOSYNTHESIS BI SCREENING MAMMOGRAPHY BI 2-VIEW BREAST INC CAD Paulina Jolley MD [address] [place] [address] [facility] [address] [place] [address] Referral ID Status Reason Start Date Expiration Date Visits Requested Visits Authorized [id number] Authorized Auto-Generat ed Referral 09/04/2023 10/03/2024 1 1 * Transition of Care (Routine) - Ref Not Required Specialty Diagnoses / Procedures Referred By Alana t Referred To Contact Gastroenterology Diagnoses Colon cancer screening Gastroesophageal reflux disease without esophagitis Procedures CONSULT [place] [address] [place] [address] Friend, Josh Lopez, DO [address] [address] Referral ID Status Reason Start Date Expiration Date Visits Requested Visits Authorized [id number] Ref Not Required PCP Requested Referral 09/04/2023 09/03/2024 1 1 [facility] for visit Narrative* Diagnostic Procedure Only (Routine) - Closed Specialty Diagnoses / Procedures Referred By Alana t Referred To Contact [facility] Diagnoses Abnormal mammogram Procedures SEE DIAGNOSTIC LT DIAGNOSTIC MAMMOGRAPHY COMPUTER-AIDED DETCJ UNI Paulina Jolley MD [address] [place] [address] [facility] [address] [place] [address] Referral ID Status Reason Start Date Expiration Date V isits Requested Visits Authorized [id number] Closed Auto-Generate d Referral 01/15/2022 02/14/2023 1 1 [facility] Diagnostic Procedure Only (Routine) - Closed Specialty Diagnoses / Procedures Referred By Contac t Referred To Contact [facility] Diagnoses Breast cancer screening by mammogram Procedures SEE SCREENING W EDUARDO SCREENING DIGITAL BREAST TOMOSYNTHESIS BI SCREENING MAMMOGRAPHY BI 2-VIEW BREAST INC Paulina Jason MD [address] [place] [address] [facility] [address] [place] [address] Referral ID Status Reason Start Date Expiration Date V isits Requested Visits Authorized [id number] Closed Auto-Generate d Referral 06/26/2022 07/26/2023 1 1 [facility] Summary Purpose Family History No Family History Records FoundNo Family History Records FoundNo Family History Records Found Advance Directives No Advanced Directives Records FoundDocuments on File Type Date Recorded 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 Advance Directive(s) 09/19/2019 7:41 AM Documents on File Type Date Recorded 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 Advance Directive(s) 09/19/2019 7:41 AM Reason for Referral Specialty Diagnoses / Procedures Referred By Contac t Referred To Contact [facility] Diagnoses Breast cancer screening by mammogram Procedures SEE SCREENING SCREENING MAMMOGRAPHY BI 2-VIEW BREAST INC Paulina Jason MD [address] [place] [address] [facility] [address] [place] [address] Referral ID Status Reason Start Date Expiration Date Visits Requested Visits Authorized [id number] Pending Review Auto-Generat ed Referral 09/24/2022 3 1 Specialty Diagnoses / Procedures Referred By Contac t Referred To Contact [facility] Diagnoses Breast cancer screening by mammogram Procedures SEE SCREENING W EDUARDO SCREENING DIGITAL BREAST TOMOSYNTHESIS BI SCREENING MAMMOGRAPHY BI 2-VIEW BREAST INC Paulina Jason MD [address] [place] [address] [facility] [address] [place] [address] Referral ID Status Reason Start Date Expiration Date Visits Requested Visits Authorized [id number] Pending Review Auto-Generat ed Referral 2 07/26/2023 1 1 Additional Source Comments INFORMATION SOURCE (unrecogn ized section and content) DATE CREATED AUTHOR AUTHOR'S ORGANIZ ATION 03/20/2022 [facility] DATE CREATED AUTHOR AUTHOR'S ORGANIZ ATION 09/13/2023 [facility] Source Comments (unrecognize d section and content) In the event this informatio n is protected by the Federal Confidentiality of Alcohol and Drug Abuse Patient Records regulations: The Federal rules restrict any use of the information to criminally investigate or prosecute any alcohol or drug abuse patient.[facility] event this information is protected by the Federal Confidentiality of Alcohol and Drug Abuse Patient Records regulations: The Federal rules restrict any use of the information to criminally investigate or prosecute any alcohol or drug abuse patient.[facility] the event this information is protected by the Federal Confidentiality of Alcohol and Drug Abuse Patient Records regulations: The Federal rules restrict any use of the information to criminally investigate or prosecute any alcohol or drug abuse patient.[facility] the event this information is protected by the Federal Confidentiality of Alcohol and Drug Abuse Patient Records regulations: The Federal rules restrict any use of the information to criminally investigate or prosecute any alcohol or drug abuse patient.[facility] the event this information is protected by the Federal Confidentiality of Alcohol and Drug Abuse Patient Records regulations: The Federal rules restrict any use of the information to criminally investigate or prosecute any alcohol or drug abuse patient.[facility] the event this information is protected by the Federal Confidentiality of Alcohol and Drug Abuse Patient Records regulations: The Federal rules restrict any use of the information to criminally investigate or prosecute any alcohol or drug abuse patient.[facility] the event this information is protected by the Federal Confidentiality of Alcohol and Drug Abuse Patient Records regulations: The Federal rules restrict any use of the information to criminally investigate or prosecute any alcohol or drug abuse patient.[facility] the event this information is protected by the Federal Confidentiality of Alcohol and Drug Abuse Patient Records regulations: The Federal rules restrict any use of the information to criminally investigate or prosecute any alcohol or drug abuse patient.[facility] the event this information is protected by the Federal Confidentiality of Alcohol and Drug Abuse Patient Records regulations: The Federal rules restrict any use of the information to criminally investigate or prosecute any alcohol or drug abuse patient.[facility] the event this information is protected by the Federal Confidentiality of Alcohol and Drug Abuse Patient Records regulations: The Federal rules restrict any use of the information to criminally investigate or prosecute any alcohol or drug abuse patient.[facility] the event this information is protected by the Federal Confidentiality of Alcohol and Drug Abuse Patient Records regulations: The Federal rules restrict any use of the information to criminally investigate or prosecute any alcohol or drug abuse patient.[facility] the event this information is protected by the Federal Confidentiality of Alcohol and Drug Abuse Patient Records regulations: The Federal rules restrict any use of the information to criminally investigate or prosecute any alcohol or drug abuse patient.[facility] the event this information is protected by the Federal Confidentiality of Alcohol and Drug Abuse Patient Records regulations: The Federal rules restrict any use of the information to criminally investigate or prosecute any alcohol or drug abuse patient.[facility] the event this information is protected by the Federal Confidentiality of Alcohol and Drug Abuse Patient Records regulations: The Federal rules restrict any use of the information to criminally investigate or prosecute any alcohol or drug abuse patient.[facility] the event this information is protected by the Federal Confidentiality of Alcohol and Drug Abuse Patient Records regulations: The Federal rules restrict any use of the information to criminally investigate or prosecute any alcohol or drug abuse patient.[facility] the event this information is protected by the Federal Confidentiality of Alcohol and Drug Abuse Patient Records regulations: The Federal rules restrict any use of the information to criminally investigate or prosecute any alcohol or drug abuse patient.[facility] the event this information is protected by the Federal Confidentiality of Alcohol and Drug Abuse Patient Records regulations: The Federal rules restrict any use of the information to criminally investigate or prosecute any alcohol or drug abuse patient.[facility] the event this information is protected by the Federal Confidentiality of Alcohol and Drug Abuse Patient Records regulations: The Federal rules restrict any use of the information to criminally investigate or prosecute any alcohol or drug abuse patient.[facility] the event this information is protected by the Federal Confidentiality of Alcohol and Drug Abuse Patient Records regulations: The Federal rules restrict any use of the information to criminally investigate or prosecute any alcohol or drug abuse patient.[facility] the event this information is protected by the Federal Confidentiality of Alcohol and Drug Abuse Patient Records regulations: The Federal rules restrict any use of the information to criminally investigate or prosecute any alcohol or drug abuse patient.[facility] Hospital[facility] the event this information is protected by the Federal Confidentiality of Alcohol and Drug Abuse Patient Records regulations: The Federal rules restrict any use of the information to criminally investigate or prosecute any alcohol or drug abuse patient.[facility] the event this information is protected by the Federal Confidentiality of Alcohol and Drug Abuse Patient Records regulations: The Federal rules restrict any use of the information to criminally investigate or prosecute any alcohol or drug abuse patient.[facility] the event this information is protected by the Federal Confidentiality of Alcohol and Drug Abuse Patient Records regulations: The Federal rules restrict any use of the information to criminally investigate or prosecute any alcohol or drug abuse patient.[facility] the event this information is protected by the Federal Confidentiality of Alcohol and Drug Abuse Patient Records regulations: The Federal rules restrict any use of the information to criminally investigate or prosecute any alcohol or drug abuse patient.[facility] the event this information is protected by the Federal Confidentiality of Alcohol and Drug Abuse Patient Records regulations: The Federal rules restrict any use of the information to criminally investigate or prosecute any alcohol or drug abuse patient.[facility] the event this information is protected by the Federal Confidentiality of Alcohol and Drug Abuse Patient Records regulations: The Federal rules restrict any use of the information to criminally investigate or prosecute any alcohol or drug abuse patient.[facility] the event this information is protected by the Federal Confidentiality of Alcohol and Drug Abuse Patient Records regulations: The Federal rules restrict any use of the information to criminally investigate or prosecute any alcohol or drug abuse patient.[facility] the event this information is protected by the Federal Confidentiality of Alcohol and Drug Abuse Patient Records regulations: The Federal rules restrict any use of the information to criminally investigate or prosecute any alcohol or drug abuse patient.[facility] the event this information is protected by the Federal Confidentiality of Alcohol and Drug Abuse Patient Records regulations: The Federal rules restrict any use of the information to criminally investigate or prosecute any alcohol or drug abuse patient.[facility] the event this information is protected by the Federal Confidentiality of Alcohol and Drug Abuse Patient Records regulations: The Federal rules restrict any use of the information to criminally investigate or prosecute any alcohol or drug abuse patient.[facility] Reason for Visit (unrecogniz ed section and content) Reason Comments Orders Reason Comments F/U 6 months Reason Onset Date Comments Orders Radiology Mammogram 01/15/2022 at [facility] Reason Comments Radiology US Specialty Diagnoses / Procedures Referred By Contac t Referred To Contact [facility] Diagnoses Abnormal mammogram Procedures US BREAST LTD LT US BREAST UNI REAL TIME WITH IMAGE LIMITED Paulina Jolley MD [address] [place] [address] [facility] [address] [place] [address] Referral ID Status Reason Start Date Expiration Date V isits Requested Visits Authorized [id number] Closed Auto-Generate d Referral 01/15/2022 02/14/2023 1 1 Reason Comments Consult left breast Reason Onset Date Comments Refill Request 02/22/2022 Reason Comments Follow Up Lump in left breast, benign, mamm 03/15/22 Reason Comments Results Reason Comments Post Op Left Breast Biopsy Reason Comments Refill Request Reason Onset Date Comments Refill Request 05/14/2022 Reason Onset Date Comments F/U 6 months Breast Problem 06/26/2022 Mammogram at [facility] Reason Comments Med Change Request Reason Comments Cough Reason Onset Date Comments Refill Request 11/18/2022 Reason Onset Date Comments Refill Request 07/13/2023 Reason Comments Chest Congestion Nasal Congestion Cough Reason Onset Date Comments Refill Request Refill Request 08/05/2023 Reason Onset Date Comments Refill Request 08/02/2023 Refill Request 08/05/2023 Reason Onset Date Comments F/U 6 months handicap placard and license plate, needs new nebulizer Breast Problem 09/04/2023 Mammogram at [facility] Reason Comments Sleep study order Care Teams (unrecognized sec tion and content) 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 Relationship Specialty Start Date End Date Paulina Jolley MD [address] [place], [place] [id number] PCP - General 03/28/10 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 Relationship Specialty Start Date End Date Paulina Jolley MD [address] [place] [address], [place] [address] PCP - General 03/28/10 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 Relationship Specialty Start Date End Date Paulina Jolley MD [address] [place] [address], [place] [address] PCP - General 03/28/10 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 Relationship Specialty Start Date End Date Paulina Jolley MD [address] [place] [address], [place] [address] PCP - General 03/28/10 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 Relationship Specialty Start Date End Date Paulina Jolley MD [address] [place] [address], [place] [address] PCP - General 03/28/10 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 Relationship Specialty Start Date End Date Paulina Jolley MD [address] [place] [address], [place] [address] PCP - General 03/28/10 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 Relationship Specialty Start Date End Date Paulina Jolley MD [address] [place] [address], [place] [address] PCP - General 03/28/10 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 Relationship Specialty Start Date End Date Paulina Jolley MD [address] [place] [address], [place] [address] PCP - General 03/28/10 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 Relationship Specialty Start Date End Date Paulina Jolley MD [address] [place] [address], [place] [address] PCP - General 03/28/10 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 Relationship Specialty Start Date End Date Paulina Jolley MD [address] [place] [address], [place] [address] PCP - General 03/28/10 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 Relationship Specialty Start Date End Date Paulina Jolley MD [address] [place] [address] PCP - General 03/28/10 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 Relationship Specialty Start Date End Date Paulina Jolley MD [address] [place] [address] PCP - General 03/28/10 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 Relationship Specialty Start Date End Date Paulina Jolley MD [address] [place] [address] PCP - General 03/28/10 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 Relationship Specialty Start Date End Date Paulina Jolley MD [address] [place] [address] PCP - General 03/28/10 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 Relationship Specialty Start Date End Date Paulina Jolley MD [address] [place] [address] PCP - General 03/28/10 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 Relationship Specialty Start Date End Date Paulina Jolley MD [address] [place] [address] PCP - General 03/28/10 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 Relationship Specialty Start Date End Date Paulina Jolley MD [address] [place] [address] PCP - General 03/28/10 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 Relationship Specialty Start Date End Date Paulina Jolley MD [address] [place] [address] PCP - General 03/28/10 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 This clinical summary was aggregated from multiple sources. Caution should be exercised in using it in the provision of clinical care. This summary normalizes information from multiple sources, and as a consequence, information in this document may materially change the coding, format and clinical context of patient data. In addition, data may be omitted in some cases. CLINICAL DECISIONS SHOULD BE BASED ON THE PRIMARY CLINICAL RECORDS. [facility] [employer] [facility]. provides no warranty or guarantee of the accuracy or completeness of information in this document.
[2023-09-16 12:49] VITALS: O2SAT 96
[2023-09-16 12:53] VITALS: BP 147/78; PULSE 112; RESP 18; O2SAT 96
== END 2023-09-16 13:03 | disposition home or self-care (01) ==
PROVIDERS: Physician Assistant; Emergency Provider Emergency Medicine; PCP Internal Medicine; Visit Provider Emergency Medicine
DX: U07.1 COVID-19 (principal); F20.9 Schizophrenia, unspecified; J45.901 Unspecified asthma with (acute) exacerbation; E78.5 Hyperlipidemia, unspecified; K21.9 Gastro-esophageal reflux disease without esophagitis; F32.A Depression, unspecified; Z79.899 Other long term (current) drug therapy; Z90.49 Acquired absence of other specified parts of digestive tract; Z96.653 Presence of artificial knee joint, bilateral
CPT/HCPCS: 71046; 80048; 84484; 85025; 87631; 93005; 99284; A4216

== ENCOUNTER → 2023-09-27 | Outpatient (CLI) | payer MEDICARE, MEDICAID, SELFPAY ==
--- OUTSIDE RECORDS SUMMARY | 2023-09-27 19:49 | XMS RPT_ITS | CCD ---
Author Name Unknown Address [address] [place] [id number] Organization [facility] Care Team Providers Care Director Of Reimbursement Name Role Phone Paulina Jolley MD Primary Care Provider TALAMPAS, PAULINA D Referring Unavailable TALAMPAS, PAULINA D Primary Care Unavailable AN OHARA Attending Unavailable TALAMPAS, PAULINA D Primary Care Unavailable TALAMPAS, PAULINA D Primary Care Unavailable TALAMPAS, PAULINA D Primary Care Unavailable TALAMPAS, PAULINA D Attending Unavailable TALAMPAS, PAULINA D Primary Care Unavailable TALAMPAS, PAULINA D Referring Unavailable TALAMPAS, PAULINA D Primary Care Unavailable TALAMPAS, PAULINA D Referring Unavailable TALAMPAS, PAULINA D Primary Care Unavailable AN OHARA Attending Unavailable DARLENE LIANG Attending Unavailable TALAMPAS, PAULINA D Primary Care Unavailable TALAMPAS, PAULINA D Attending Unavailable TALAMPAS, PAULINA D Primary Care Unavailable TALAMPAS, PAULINA D Referring Unavailable TALAMPAS, PAULINA D Primary Care Unavailable Allergies Allergy Classification Reported Allergen(s) Allergy Type Date of Onset Reaction(s) Facility (20 sources) Seasonal allergy; Translations: [SEASONAL ALLERGIES] Allergy to substance 2 Other: See Comments [facility] Medications Current Medications Medication Drug Class(es) Dates [...] Chronic Other nutritional; endocrine; and metabolic disorders (15 sources) Obesity caused by energy imbalance; Translations: [...] [Contusion of right knee, subsequent encounter] Episodic Viral infection (1 source) Disease caused by 2019-nCoV; Translations: [COVID-19] 09-23-2023 Episodic Past or Other Problems Problem Classification [...] 11-12-2009 Episodic Other aftercare (1 source) 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; Translations: [Encounter for long-term [...] Vital Sign Value Performing Clinician Faci lity 09-23-2023 15:00-0500 Body weight 93.89 kg Darlene Liang APRN.BARREL BUNG REMOVER AND DUMPER Work Phone: [facility] 09-23-2023 15:00-0500 Diastolic blood pressure 86 mm[Hg] Darlene Liang APRN.BARREL BUNG REMOVER AND DUMPER Work Phone: [facility] 09-23-2023 15:00-0500 Heart rate 101 /min Darlene Liang APRN.BARREL BUNG REMOVER AND DUMPER Work Phone: [facility] 09-23-2023 15:00-0500 Respiratory rate 16 /min Darlene Liang APRN.BARREL BUNG REMOVER AND DUMPER Work Phone: [facility] 09-23-2023 15:00-0500 SaO2% (BldA) [Mass fraction] 97 % Darlene Liang APRN.BARREL BUNG REMOVER AND DUMPER Work Phone: [facility] 09-23-2023 15:00-0500 Systolic blood pressure 124 mm[Hg] Darlene Liang APRN.BARREL B[employer]G REMOVER AND DUMPER Work Phone: [facility] 09-04-2023 10:19-0500 Body height 157.5 cm Paulina Jolley MD Work Phone: [facility] 09-04-2023 10:19-0500 Body temperature 97.3 [degF] Paulina Jolley MD Work Phone: [facility] 09-04-2023 10:19-0500 Body weight 95.71 kg Paulina Jolley MD Work Phone: [facility] 09-04-2023 10:19-0500 Diastolic blood pressure 80 mm[Hg] Paulina Jolley MD Work Phone: [facility] 09-04-2023 10:19-0500 Heart rate 95 /min Paulina Jolley MD Work Phone: [facility] 09-04-2023 10:19-0500 Respiratory rate 12 /min Paulina Jolley MD Work Phone: [facility] 09-04-2023 10:19-0500 SaO2% (BldA) [Mass fraction] 98 % Paulina Jolley MD Work Phone: [facility] 09-04-2023 10:19-0500 Systolic blood pressure 138 mm[Hg] Paulina Jolley MD Work Phone: [facility] 07-16-2023 13:48-0500 Body temperature 98.91 [degF] An Ohara MACHINE LOAD CLERK.POST HOLE DIGGING MACHINE OPERATOR Work Phone: [facility] 07-16-2023 13:48-0500 Body weight 92.53 kg An Ohara MACHINE LOAD CLERK.POST HOLE DIGGING MACHINE OPERATOR Work Phone: [facility] 07-16-2023 13:48-0500 Diastolic blood pressure 83 mm[Hg] An Ohara MACHINE LOAD CLERK.POST HOLE DIGGING MACHINE OPERATOR Work Phone: [facility] 07-16-2023 13:48-0500 Heart rate 107 /min An Ohara MACHINE LOAD CLERK.POST HOLE DIGGING MACHINE OPERATOR Work Phone: [facility] 07-16-2023 13:48-0500 Respiratory rate 16 /min An Ohara MACHINE LOAD CLERK.POST HOLE DIGGING MACHINE OPERATOR Work Phone: [facility] 07-16-2023 13:48-0500 SaO2% (BldA) [Mass fraction] 97 % An Ohara MACHINE LOAD CLERK.POST HOLE DIGGING MACHINE OPERATOR Work Phone: [facility] 07-16-2023 13:48-0500 Systolic blood pressure 137 mm[Hg] An Ohara MACHINE LOAD CLERK.POST HOLE DIGGING MACHINE OPERATOR Work Phone: [facility] 06-26-2022 09:58-0500 Body weight 91.63 kg Paulina Jolley MD Work Phone: [facility] 06-26-2022 09:58-0500 Diastolic blood pressure 82 mm[Hg] Paulina Jolley MD Work Phone: [facility] 06-26-2022 09:58-0500 Heart rate 79 /min Paulina Jolley MD Work Phone: [facility] 06-26-2022 09:58-0500 SaO2% (BldA) [Mass fraction] 97 % Paulian Jolley MD Work Phone: [facility] 06-26-2022 09:58-0500 Systolic blood pressure 122 mm[Hg] Paulina Jolley MD Work Phone: [facility] 04-25-2022 13:46-0400 Body height 157.5 cm Jenifer Sauer MD Work Phone: [facility] 04-25-2022 13:46-0400 Body temperature 96.49 [degF] Jenifer Sauer MD Work Phone: [facility] 04-25-2022 13:46-0400 Body weight 92.08 kg Jenifer Sauer MD Work Phone: [facility] 04-25-2022 13:46-0400 Diastolic blood pressure 88 mm[Hg] Jenifer Sauer MD Work Phone: [facility] 04-25-2022 13:46-0400 Heart rate 120 /min Jenifer Sauer MD Work Phone: [facility] 04-25-2022 13:46-0400 SaO2% (BldA) [Mass fraction] 95 % Jenifer Sauer MD Work Phone: [facility] 09-21-2022 13:46-0400 Systolic blood pressure 155 mm[Hg] Jenifer Sauer MD Work Phone: [facility] 03-23-2022 15:05-0400 Body height 157.5 cm Jenifer Sauer MD Work Phone: [facility] 03-23-2022 15:05-0400 Body temperature 99.1 [degF] Jenifer Sauer MD Work Phone: [facility] 03-23-2022 15:05-0400 Body weight 93.89 kg Jenifer Sauer MD Work Phone: [facility] 03-23-2022 15:05-0400 Diastolic blood pressure 86 mm[Hg] Jenifer Sauer MD Work Phone: [facility] 03-23-2022 15:05-0400 Heart rate 114 /min Jenifer Sauer MD Work Phone: [facility] 03-23-2022 15:05-0400 SaO2% (BldA) [Mass fraction] 95 % Jenifer Sauer MD Work Phone: [facility] 03-23-2022 15:05-0400 Systolic blood pressure 142 mm[Hg] Jenifer Sauer MD Work Phone: [facility] 02-16-2022 15:04-0400 Body height 157.5 cm Jenifer Sauer MD Work Phone: [facility] 02-16-2022 15:04-0400 Body temperature 97.59 [degF] Jenifer Sauer MD Work Phone: [facility] 02-16-2022 15:04-0400 Body weight 93.44 kg Jenifer Sauer MD Work Phone: [facility] 02-16-2022 15:04-0400 Diastolic blood pressure 90 mm[Hg] Jenifer Sauer MD Work Phone: [facility] 02-16-2022 15:04-0400 Heart rate 115 /min Jenifer Sauer MD Work Phone: [facility] 02-16-2022 15:04-0400 SaO2% (BldA) [Mass fraction] 95 % Jenifer Sauer MD Work Phone: [facility] 02-16-2022 15:04-0400 Systolic blood pressure 126 mm[Hg] Jenifer Sauer MD Work Phone: [facility] 10-24-2021 10:02-0400 Diastolic blood pressure 78 mm[Hg] Paulina Jolley MD Work Phone: [facility] 10-24-2021 10:02-0400 Systolic blood pressure 128 mm[Hg] Paulina Jolley MD Work Phone: [facility] 10-24-2021 09:20-0400 Body weight 90.27 kg Paulina Jolley MD Work Phone: [facility] 10-24-2021 09:20-0400 Heart rate 100 /min Paulina Jolley MD Work Phone: [facility] Encounters Encounter Date Encounter Type Care Provider Facility Start: 09-23-2023 ambulatory DARLENE LIANG Facility:[facility] Start: 09-23-2023 End: 09-23-2023 Patient encounter procedure Darlene Liang MACHINE LOAD CLERK.BAR[employer] B[employer]G REMOVER AND DUMPER Work Phone: [facility] Procedures Date Procedure Procedure Detail Performing Clinician Start: 08-15-2023 Lipid 1996 panel - S john or Plasma Paulina Jolley MD Work Phone: Start: 05-18-2023 PFIZER-BIONTECH COVI D-19 VACCINE (2022- SEASON) AGE 12+ YR Paulina Jolley MD [...] Detail Author Start: 02-26-2030 Urine microalbumin profile [facility] Start: 08-15-2028 Lipid panel Lipid Screening [facility] Start: 02-22-2028 Lipid 1996 panel - Serum or Plasma Lipid Screening [facility] Start: 02-22-2028 Lipid panel Lipid Screening [facility] Start: 06-19-2027 LIPID SCREEN LIPID SCREEN [facility] Start: 12-25-2026 LIPID SCREEN LIPID SCREEN [facility] Start: 10-17-2026 LIPID SCREEN LIPID SCREEN [facility] Start: 08-15-2026 Diabetes Screening Diabetes Screening [facility] Start: 02-21-2026 Diabetes Screening Diabetes Screening [facility] Start: 06-19-2025 DIABETES SCREEN DIABETES SCREEN [facility] Start: 10-17-2024 DIABETES SCREEN DIABETES SCREEN [facility] Start: 09-23-2024 Annual PCP Team Chronic Disease Visit Annual PCP Team Chronic Disease Visit [facility] Start: 09-04-2024 Annual PCP Team Chronic Disease Visit Annual PCP Team Chronic Disease Visit [facility] Start: 04-28-2024 Colonoscopy COLONOSCOPY [facility] Start: 04-28-2024 COLORECTAL CANCER SCREENING COLORECTAL CANCER SCREENING [facility] Start: 04-28-2024 Screening for malignant neoplasm of colon [facility] Start: 03-04-2024 End: 06-03-2024 25-hydroxyvitamin D3 [Mass/volume] in Serum or Plasma VITAMIN D 25 HYDROXY Lab Routine Vitamin D deficiency Encounter for long-term current use of medication Expected: 03/04/2024 (Approximate), Expires: 06/03/2024 [facility] Work Phone: Immunizations Immunization Date Immunization Notes Care Provider Dinorah romero 05-18-2023 COVID-19 vaccine, ag e 12+ yr, season (PFIZER-BIONTECH) Immunization [place] Work Phone: [facility] Work Phone: 05-18-2023 influenza (HD-IIV4) vaccine, age 65+ yr, high dose, quadrivalent, PF (FLUZONE HIGH-DOSE) Immunization [facility] Work Phone: [facility] 02-26-2023 pneumococcal (PCV20) vaccine, 20 valent (PREVNAR 20) Immunization [place] Work Phone: [facility] 06-26-2022 COVID-19 booster vaccine, age 12+ yr, bivalent (PFIZER-BIONTECH) Paulina Jolley MD Work Phone: [facility] 06-26-2022 influenza, high-dose , quadrivalent vaccine (FLUZONE HIGH DOSE QUADRIVALENT) Paulina Jolley MD Work Phone: [facility] 04-29-2021 Influenza, injectabl e, Madin Latasha Canine Kidney, preservative free, quadrivalent Paulina Jolley MD Work Phone: [facility] Work Phone: 04-29-2021 influenza, seasonal, injectable Paulina Jolley MD Work Phone: [facility] Work Phone: 06-18-2020 zoster vaccine recombinant Paulina Jolley MD Work Phone: [facility] Work Phone: 04-10-2020 influenza, seasonal, injectable Paulina Jolley MD Work Phone: [facility] Work Phone: 02-27-2020 tetanus toxoid, redu michael diphtheria toxoid, and acellular pertussis vaccine, adsorbed Paulina Jolley MD Work Phone: [facility] Work Phone: 02-27-2020 zoster vaccine recombinant Paulina Jolley MD Work Phone: [facility] Work Phone: 07-14-2019 pneumococcal conjuga te vaccine, 13 valent Paulina Jolley MD Work Phone: [facility] Work Phone: 06-22-2019 influenza, injectabl e, quadrivalent, preservative free Paulina Jolley MD Work Phone: [facility] 11-26-2018 measles, mumps and rubella virus vaccine Paulina Jolley MD Work Phone: [facility] 07-21-2018 influenza, injectabl e, quadrivalent, contains preservative Paulina Jolley MD Work Phone: [facility] 07-10-2017 influenza, injectabl e, quadrivalent, contains preservative Paulina Jolley MD Work Phone: [facility] 06-26-2016 influenza, injectabl e, quadrivalent, contains preservative Paulina Jolley MD Work Phone: [facility] 07-04-2015 influenza, injectabl e, quadrivalent, contains preservative Paulina Jolley MD Work Phone: [facility] 06-15-2014 influenza, seasonal, injectable Paulina Jolley MD Work Phone: [facility] 05-22-2013 influenza virus vaccine, unspecified formulation Paulina Jolley MD Work Phone: [facility] 01-23-2013 pneumococcal polysaccharide vaccine, 23 valent Paulina Jolley MD Work Phone: [facility] Work Phone: 05-11-2007 tetanus and diphther ia toxoids, not adsorbed, for adult use Paulina Jolley MD Work Phone: [facility] Work Phone: Payers Date Payer Category Payer Medicaid [facility] MEDICAID [employer] [facility] MEDICAID [id number] 2021-Present [phone] [address] [place] [address] Medicaid [id number] 2021 Medicare [id number] 2021 Medicare [facility] MEDICARE [employer] [facility] MEDICARE [id number] 2021-Present [phone] [address] [place] [address] Medicare [id number] 2021 Medicare [id number] Social History Date Type Detail Facility Start: 07-24-2013 Tobacco smoking stat [facility] Never smoked tobacco [facility] Work Phone: Start: 10-24-2021 End: 09-23-2023 Alcohol intake Current non-drinker of alcohol (finding) [facility] Start: 12-12-2021 End: 10-08-2022 History SDOH Alcohol Frequency 1 [facility] Start: 12-12-2021 End: 10-08-2022 History SDOH Social Connections Phone 5 [facility] Start: 12-12-2021 History SDOH Social Connections Get Together 4 [facility] Start: 12-12-2021 End: 10-08-2022 History SDOH Social Connections [employer] 3 [facility] Start: 12-12-2021 End: 10-08-2022 History SDOH Social Connections Meetings 2 [facility] Start: 1955 Sex Assigned At Female C [facility] Start: 12-02-2021 End: 06-19-2022 Exposure to SARS-CoV-2 (event) Not sure [facility] Work Phone: Start: 02-09-2022 End: 02-19-2022 Exposure to SARS-CoV-2 (event) Unable to assess [facility] Start: 07-24-2013 Tobacco use and exposure Smoke less tobacco non-user [facility] Start: 10-08-2022 History SDOH Alcohol Std Drinks 0 [facility] Start: 10-08-2022 End: 01-11-2023 History of Social function [facility] Start: 10-08-2022 End: 01-11-2023 Social connection and isolation panel [facility] Do you belong to any clubs or organizations such as mormon groups, unions, fraternal or athletic groups, or school groups? No [facility] Are you now , , , , never or living with a partner? [facility] How often to you hav e a drink containing alcohol? Never [facility] How many standard dr inks containing alcohol do you have on a typical day? Patient does not drink [facility] Do you feel stress - tense, restless, nervous, or anxious, or unable to sleep at night because your mind is troubled all the time - these days [OSQ] Only a little [facility] (I/We) worried whe er (my/our) food would run out before (I/we) got money to buy more. Never true [facility] Start: 12-22-2020 Gender identity Identifies as female gender (finding) [facility] Clinical Notes 09-21-2019 to 09-23-2023 Darlene Liang APRN.CNP - 09/23/2023 3:00 PM ESTTelephone Encounter - Marilee Gorman MA - 09/16/2023 2:22 PM ESTTelephone Encounter - Paulina Jolley MD - 09/16/2023 1:21 PM EST Note Date & Type Note Facility 09-23-2023 Note HNO ID: [id number] Author: DARLENE LIANG APRN.BARREL BUNG REMOVER AND DUMPER Service: ? Author Type: Nurse Practitioner Type: Progress Notes Filed: 09/23/2023 15:15 Note Text: SUBJECTIVE Naman Roa is a 68 year old female here today for an ER follow up. Chief Complaint Patient presents with: ED Follow-up: Covid +, pt feeling much better HPI Naman Roa is a 68 year old female established patient of Paulina Jolley MD. Here today for ER follow up from being seen in [facility] ED 09/16. Symptoms of cough and shortness of breath. She was found positive for COVID, started Paxlovid and prednisone. Monitoring her pulse ox and this is stable. No longer wheezing. Nebulizer was helping. No shortness of breath and no chest tightness and no chest pain. Feeling much better. Her medications were reviewed today and her list is now up to date. Medications Current Outpatient Medications Medication Sig Cholecalciferol, Vitamin D3, 125 mcg (5,000 unit) cap Take 1 capsule by mouth once daily. rosuvastatin (CRESTOR) 10 mg tablet Take 1 tablet by mouth daily at bedtime. pregabalin (LYRICA) 100 mg capsule Take 1 capsule by mouth two times a day for 180 days. albuterol (PROVENTIL) 2.5 mg /3 mL [...] for COLD/ALLERGY SYMPTOMS Rinse mouth after use omeprazole (PRILOSEC) 20 mg capsule Take 1 capsule by mouth daily before breakfast. 1/2 hr before meal. albuterol HFA (VENTOLIN HFA) 90 mcg/actuation inhaler Inhale 2 Puffs as instructed every 4 hours as needed for wheezing/shortness of breath. diclofenac (VOLTAREN) 1 % topical gel Apply 2 g to affected area daily at bedtime. perphenazine 8 mg tablet Take 1 tablet by mouth daily at bedtime. ([facility]seling [facility]) clonazePAM (KLONOPIN) 0.5 mg tablet Take 1 tablet by mouth daily at bedtime. ([facility]seling Center gives RX) sertraline (ZOLOFT) 50 mg tablet Take 1 tablet by mouth once daily. No current facility-administered medications for this visit. ALLERGIES Allergen Reactions Seasonal Allergies Other: See Comments Stuffy nose, watery eyes ACTIVE PROBLEM LIST Impaired Glucose Metabolism - 10/12/2020 Primary Osteoarthritis of Both Knees - 08/07/2018 Sacroiliac Joint Disease - 07/21/2018 Back Pain of Lumbar Region With Sciatica - 01/20/2018 Obstructive Sleep Apnea - 01/12/2016 Primary Localized Osteoarthrosis of Shoulder Region - 08/26/2014 Djd (Degenerative Joint Disease) of Knee Comment: bilateral Degeneration of Cervical Intervertebral Disc - 10/30/2013 Rotator Cuff Tear - 07/24/2013 Adhesive Capsulitis of Shoulder - 07/24/2013 Depression - 07/24/2013 Schizophrenia (Hcc) - 05/05/2013 Comment: Per counseling center Ptsd (Post-Traumatic Stress Disorder) - 05/05/2013 Comment: Per counseling center Seborrheic Keratoses - 03/29/2012 Solar Lentigines - 03/29/2012 Melanocytic nevus of trunk: back - 03/29/2012 Actinic Skin Damage - 03/29/2012 Hypercholesterolemia - 02/09/2010 Positive Ppd - 11/12/2009 Anemia, Unspecified - 06/12/2007 Comment: Hct 36% in 06-11 Iron 66, Ferritin 106 in 06-11 Fibromyalgia - 06/03/2007 Comment: Intolerant of Ultram in the past Uses prn Ibuprofen for her pain with success as of 05-11 Works third shift on , Sat, , Sat generally with the weekends off every other week Pt sleeps on a swing shift schedule-reviewed issues as of 05-11 Scheduled sleep study in 05-11: responding to treatment as noted in the sleep entry Stopped flexeril as of 07-11 Esophageal Reflux - 06/03/2007 Comment: Uses 8-9 cups of coffee per day as of 05-11 to get awake : pt sleeps on swing shift She decreased her use by half as of 10-10: less heartburn in turn Has hiatal hernia Asthma - 06/03/2007 Comment: Lifetime non-smoker as of 05-11 Allergic Rhinitis - 06/03/2007 Comment: Using allergy shots as of 05-11: started with Dr. Palomino as of 12-09 (remarkable response) Vitamin D Deficiency - 06/03/2007 Comment: Vitamin D 22 (31-80) in 06-11: started Vitamin D3 at 1000 IU a day Vitamin D 21 in 10-10: clarify compliance versus dose Class 1 Obesity Due to Excess Calories Without Serious Comorbidity With Body Mass Index (Bmi) of 32.0 to 32.9 in Adult - 06/03/2007 Comment: TSH 0.69 in 06-11 Disorder of Bone and Cartilage, Unspecified - 06/03/2007 Comment: BMD 3-04: LS spine -0.9, L femoral neck -1.5 Social History Tobacco Use Smoking status: Never Smokeless tobacco: Never Vaping Use Vaping Use: Never used Substance Use Topics Alcohol use: No Drug use: No Review of Systems Con (more content not included)... [facility] 09-23-2023 History of Presen t illness Narrative SUBJECTIVE Naman Roa is a 68 year old female here today for an ER follow up. Chief Complaint Patient presents with: ED Follow-up: Covid +, pt feeling much better HPI Naman Roa is a 68 year old female established patient of Paulina Jolley MD. Here today for ER follow up from being seen in [facility] ED 09/16. Symptoms of cough and shortness of breath. She was found positive for COVID, started Paxlovid and prednisone. Monitoring her pulse ox and this is stable. No longer wheezing. Nebulizer was helping. No shortness of breath and no chest tightness and no chest pain. Feeling much better. Her medications were reviewed today and her list is now up to date. Medications Current Outpatient Medications Medication Sig Cholecalciferol, Vitamin D3, 125 mcg (5,000 unit) cap Take 1 capsule by mouth once daily. rosuvastatin (CRESTOR) 10 mg tablet Take 1 tablet by mouth daily at bedtime. pregabalin (LYRICA) 100 mg capsule Take 1 capsule by mouth two times a day for 180 days. albuterol (PROVENTIL) 2.5 mg /3 mL [...] for COLD/ALLERGY SYMPTOMS Rinse mouth after use omeprazole (PRILOSEC) 20 mg capsule Take 1 capsule by mouth daily before breakfast. 1/2 hr before meal. albuterol HFA (VENTOLIN HFA) 90 mcg/actuation inhaler Inhale 2 Puffs as instructed every 4 hours as needed for wheezing/shortness of breath. diclofenac (VOLTAREN) 1 % topical gel Apply 2 g to affected area daily at bedtime. perphenazine 8 mg tablet Take 1 tablet by mouth daily at bedtime. ([facility]) clonazePAM (KLONOPIN) 0.5 mg tablet Take 1 tablet by mouth daily at bedtime. ([facility] gives RX) sertraline (ZOLOFT) 50 mg tablet Take 1 tablet by mouth once daily. No current facility-administered medications for this visit. ALLERGIES Allergen Reactions Seasonal Allergies Other: See Comments Stuffy nose, watery eyes ACTIVE PROBLEM LIST Impaired Glucose Metabolism - 10/12/2020 Primary Osteoarthritis of Both Knees - 08/07/2018 Sacroiliac Joint Disease - 07/21/2018 Back Pain of Lumbar Region With Sciatica - 01/20/2018 Obstructive Sleep Apnea - 01/12/2016 Primary Localized Osteoarthrosis of Shoulder Region - 08/26/2014 Djd (Degenerative Joint Disease) of Knee Comment: bilateral Degeneration of Cervical Intervertebral Disc - 10/30/2013 Rotator Cuff Tear - 07/24/2013 Adhesive Capsulitis of Shoulder - 07/24/2013 Depression - 07/24/2013 Schizophrenia (Hcc) - 05/05/2013 Comment: Per counseling center Ptsd (Post-Traumatic Stress Disorder) - 05/05/2013 Comment: Per counseling center Seborrheic Keratoses - 03/29/2012 Solar Lentigines - 03/29/2012 Melanocytic nevus of trunk: back - 03/29/2012 Actinic Skin Damage - 03/29/2012 Hypercholesterolemia - 02/09/2010 Positive Ppd - 11/12/2009 Anemia, Unspecified - 06/12/2007 Comment: Hct 36% in 06-11 Iron 66, Ferritin 106 in 06-11 Fibromyalgia - 06/03/2007 Comment: Intolerant of Ultram in the past Uses prn Ibuprofen for her pain with success as of 05-11 Works third shift on , Sat, , Fri generally with the weekends off every other week Pt sleeps on a swing shift schedule-reviewed issues as of 05-11 Scheduled sleep study in 05-11: responding to treatment as noted in the sleep entry Stopped flexeril as of 07-11 Esophageal Reflux - 06/03/2007 Comment: Uses 8-9 cups of coffee per day as of 05-11 to get awake : pt sleeps on swing shift She decreased her use by half as of 10-10: less heartburn in turn Has hiatal hernia Asthma - 06/03/2007 Comment: Lifetime non-smoker as of 05-11 Allergic Rhinitis - 06/03/2007 Comment: Using allergy shots as of 05-11: started with Dr. Palomino as of 12-09 (remarkable response) Vitamin D Deficiency - 06/03/2007 Comment: Vitamin D 22 (31-80) in 06-11: started Vitamin D3 at 1000 IU a day Vitamin D 21 in 10-10: clarify compliance versus dose Class 1 Obesity Due to Excess Calories Without Serious Comorbidity With Body Mass Index (Bmi) of 32.0 to 32.9 in Adult - 06/03/2007 Comment: TSH 0.69 in 06-11 Disorder of Bone and Cartilage, Unspecified - 06/03/2007 Comment: BMD 10-06: LS spine -0.9, L femoral neck -1.5 Social History Tobacco Use Smoking status: Never Smokeless tobacco: Never Vaping Use Vaping Use: Never used Substance Use Topics Alcohol use: No Drug use: No Review of Systems Constitutional: Negative. Respiratory: Positive for cough. Negative for apnea, choking, chest tightness and stridor. Cardiovascular: Negative. OBJECTIVE BP 124/86 Pulse 101 Resp 16 Wt 207 lb (93.9kg) SpO2 97% Physical Exam Vitals and nursing note reviewed. Constitutional: General: She is awake. She is not in acute distress. Appearance: Normal appearance. She is well-developed and well-groomed. She is not ill-appearing, toxic-appearing or diaphoretic. HENT: Head: Normocephalic. Right Ear: External ear normal. Left Ear: External ear normal. Nose: Nose normal. Eyes: General: Vision grossly intact. Conjunctiva/sclera: Conjunctivae normal. Pupils: Pupils are equal, round, and reactive to light. Neck: Vascular: No JVD. Trachea: Trachea normal. Cardiovascular: Rate and Rhythm: Normal rate and regular rhythm. Pulses: Normal pulses. Heart sounds: Normal heart sounds. No murmur heard. Pulmonary: Effort: Pulmonary effort is normal. No accessory muscle usage, prolonged expiration or respiratory distress. Breath sounds: Normal breath sounds. Musculoskeletal: Cervical back: Neck supple. Skin: General: Skin is warm and dry. Capillary Refill: Capillary refill takes less than 2 seconds. Neurological: General: No focal deficit present. Mental Status: She is alert and oriented to person, place, and time. Mental status is at baseline. Psychiatric: Attention and Perception: Attention and perception normal. Mood and Affect: Mood and affect normal. Speech: Speech normal. Behavior: Behavior normal. Behavior is cooperative. Thought Content: Thought content normal. Cognition and Memory: Cognition and memory normal. Judgment: Judgment normal. ASSESSMENT/PLAN: 1. COVID-19 - ICD9: 079.89, ICD10: U07.1 (primary diagnosis) Doing well, much improved. 2. Mild intermittent asthma with acute exacerbation - ICD9: 493.92, ICD10: J45.21 - Mild intermittent asthma acute excacerbation without status and no respiratory distress - Continue current medications - Avoidance of triggers recommended Portions of this note have been entered by ancillary staff. I have reviewed and when necessary edited, so that they are an adequate record of my encounter with this patient Please note that parts of this document were created using voice recognition software and therefore may contain grammatical errors. Patient verbalizes understanding of instructions from today's visit and in agreement with treatment plan. Questions answered. Agrees to call the office if questions, concerns of issues with acute symptoms not improving or if they worsen. See diagnoses and orders for additional plan(s). Allergies and medications were reviewed, list was updated, and refills given if needed. Past medical, surgical, social, and family history reviewed and updated as appropriate. Encouraged proper diet & exercise as well as compliance with taking medications. Age-appropriate health preventative measures were discussed. Return if symptoms worsen or fail to improve, for Keep next scheduled appointment.. Darlene Liang APRN-NICOLLE documented in this encounter [facility] 09-16-2023 Miscellaneous Notes Spoke with patient who presented to [facility] ER and was dx with Covid. Will call back to schedule ER follow up. Marilee Gorman MA Agree with recommendation for evaluation in office (EC or IM department) Noted issues with transportation. Does not sound like reaction to vaccine. Sounds like viral syndrome. Continue symptoms management with OTC meds for cough, etc. She has albuterol and atrovent for nebulizer plus albuterol MDI. Triage Protocol Recommended: PCP to advise. (PCP Triage). Pt has been strongly advised to be evaluated within next 4 hours by a medical provider to determine cause of sx's. Patient states she does not have transportation currently to come in for OV anytime soon. Pt unsure when she would be able to come in. Unable to make appt at this time. Pt agreeable to EC, if and when able to find transportation. Advised patient call 911 if sx's worsen or for any severe sx's and pt voiced understanding. Please call patient if PCP has different or other recommendations that what has been advised. Reason for Disposition [1] MILD difficulty breathing (e.g., minimal/no SOB at rest, SOB with walking, pulse <100) AND [2] NEW-onset or WORSE than normal Answer Assessment - Initial Assessment Questions Patient states she got an RSV vaccine on Wednesday 09/13 at a [facility] and that evening she developed a severe headache and got real dizzy . Patient states she still has mild dizziness but headache has improved. Patient also coughing with wheezing at times. Has asthma and allergies. Reports mild SOB at times.Has body aches. Denies fever, chills, sore throat, N/V/D. Reports inhalers and breathing tx's are effective. States home covid test yesterday was negative. 1. RESPIRATORY STATUS: mild SOB at rest at times. Speaking full sentences during call. No distress noted during call. 2. ONSET: 3 days ago 3. PATTERN: comes and goes 4. SEVERITY: mild to moderate, varies 5. RECURRENT SYMPTOM: yes 6. CARDIAC HISTORY: see history 7. LUNG HISTORY: yes 8. CAUSE:Pt is not sure 9. OTHER SYMPTOMS: see above 10. O2 SATURATION MONITOR: Does not have a Pulse-oximeter 11. : no 12. TRAVEL: no Protocols used: Breathing [id number] documented in this encounter [facility] 09-16-2023 Miscellaneous Notes Pt called in and wanted to let provider know she went to [facility] ER today and was diagnosed with Covid. She was ordered Paxlovid and Prednisone and will use her breathing treatments. She states he O2 had dropped to 88%. Pt states she is going to stay in her reclining chair and walk. She states she doesn't want this to go down into her lungs. Made sure Pt knew red flag symptoms to go back to the ER for, and she said they had told her as well. Pt states she will make ER f/u when she feels better since she will be driving herself. Beginning Home Isolation Isolation is used to separate people infected with SARS-CoV-2, the virus that causes COVID-19, from people who are not infected. People who are in isolation should stay home until it s safe for them to be around others. In the home, anyone sick or infected should separate themselves from others by staying in a specific sick room or area and using a separate bathroom (if available). Isolation or Quarantine: What's the difference? Quarantine keeps someone who might have been exposed to the virus away from others. Isolation keeps someone who is infected with the virus away from others, even in their home. Who needs to isolate People who have COVID-19 People who have symptoms of COVID-19 and are able to recover at home People who have no symptoms (are asymptomatic) but have tested positive for infection with SARS-CoV-2 Steps to take Stay home except to get medical care Monitor your symptoms. Stay in a separate room from other household members, if possible Use a separate bathroom, if possible Avoid contact with other members of the household and pets Don t share personal household items, like cups, towels, and utensils Wear a mask when around other people, if you are able to When to seek emergency medical attention Look for emergency warning signs* for COVID-19. If someone is showing any of these signs, seek emergency medical care immediately: Trouble breathing Persistent pain or pressure in the chest New confusion Inability to wake or stay awake Bluish lips or face *This list is not all possible symptoms. Please call your medical provider for any other symptoms that are severe or concerning to you. Call 911 or call ahead to your local emergency facility: Notify the deskidding machine operator that you are seeking care for someone who has or may have COVID-19. Ending Home Isolation - When you can be around others after you had or likely had COVID-19 When you can be around others after you had or likely had COVID-19 If You Test Positive for COVID-19 (Isolation) Everyone, regardless of vaccination status: Stay home for 5 days. Note: Day 0 is your first day of symptoms or the date of collection of a positive viral test if no symptoms. Day 1 is the first full day after symptoms developed or test specimen was collected. If you have no symptoms or your symptoms are resolving after 5 days, you can leave your house. Continue to wear a mask around others for 5 additional days. If you have a fever, continue to stay home until your fever resolves, even if it is longer than 5 days. If You Were Exposed to Someone with COVID-19 (Quarantine) If you: 1. Have been boosted OR 2. Completed the primary series of Pfizer or Moderna vaccine within the last 6 months OR 3. Completed the primary series of J&J vaccine within the last 2 months THEN: 1. Wear a mask around others for 10 days. 2. Test on day 5, if possible. If you develop symptoms get a test and stay home. If You Were Exposed to Someone with COVID-19 (Quarantine) If you: 1. Completed the primary series of Pfizer or Moderna vaccine over 6 months ago and are not boosted OR 2. Completed the primary series of J&J over 2 months ago and are not boosted OR 3. Are unvaccinated THEN: 1. Stay home for 5 days. After that continue to wear a mask around others for 5 additional days. 2. If you can't quarantine you must wear a mask for 10 days. 3. Test on day 5 if possible. If you develop symptoms get a test and stay home. I had COVID-19 or I tested positive for COVID-19 and I have a weakened immune system If you have a weakened immune system (immunocompromised) due to a health condition or medication, you might need to stay home and isolate longer than 10 days. Talk to your healthcare provider for more information. Your doctor may work with an infectious disease expert at your local health department to determine when you can be around others. documented in this encounter [facility] 09-13-2023 Miscellaneous Notes Order faxed as requested. Sleep study order form at nurse's pod for signature. Need [facility] sleep study order to complete and fax. [...] pcp to fax sleep study order to [facility] sleep lab: fax # [phone]. Reports [facility] sleep lab will call her to schedule once order is received. documented in this encounter [facility] 09-04-2023 Note HNO ID: [id number] Author: PAULINA JOLLEY MD Service: ? Author Type: Physician Type: Progress Notes Filed: 09/12/2023 00:48 Note Text: This note was created using Mobile Sorceryriter. Subjective Naman Roa is a 68 year old female. Patient presents with: F/U 6 months: handicap placard and license plate, needs new nebulizer SUBJECTIVE: Naman Roa is a 68 year old year [...] every [address] Youssef in [place]. Noted due for colonoscopy this year. Father [...] type (HCC) Type O blood, Rh negative [facility] when had blood transfusion September 2014 VITAMIN [...] mg/dL 9.6 9.4 (more content not included)... [facility] 09-04-2023 History of Presen t illness Narrative This note was created using Mobile Sorceryriter. Subjective Naman Roa is a 68 year old female. Patient presents with: F/U 6 months: handicap placard and license plate, needs new nebulizer SUBJECTIVE: Naman Roa is a 68 year old year [...] every [address] Youssef in [place]. Noted due for colonoscopy this year. Father [...] years so now needs updated sleep study.Prefer [facility] 4. Fibromyalgia M79.7 pregabalin (LYRICA) 100 mg [...] BP and lipids. Will fax order to [facility] for sleep study. See if can do as a split study if cannot just do CPAP titration study given previously diagnosed with OSKAR.. Paulina Jolley MD documented in this encounter [facility] 09-04-2023 Nurse Note new nebulizer needs to go to [place], [place] fax # [phone] Sees Sep 10 for pain management documented in this encounter [facility] 08-13-2023 Note HNO ID: [id number] Author: CRISSY YATES RPFT Service: ? Author Type: Respiratory Therapist Type: Progress Notes Filed: 08/13/2023 10:46 Note Text: PULM FUNCTION SMARTBLOCK: Provider: Paulina Jolley MD Assisting Tech: Crissy Yates RPFT Spirometry w/BD: 1 [facility] 08-02-2023 Miscellaneous Notes Duplicate request Taken care of earlier today Has Estella appointment--more refills then Patient has been identified [...] Dept Phone 08/13/2023 11:00 AM PULM LAB [facility] [place] [phone] 09/04/2023 10:40 AM PAULINA JOLLEY [facility] [phone] Please advise. Thank you. Karla Gilbert. documented in this encounter [facility] 08-02-2023 Miscellaneous Notes The following approved medication [...] Dept Phone 08/13/2023 11:00 AM PULM LAB [facility] [place] [phone] 09/04/2023 10:40 AM PAULINA JOLLEY [facility] [phone] Please advise. Thank you. Karla Gilbert. documented in this encounter [facility] 07-16-2023 Note HNO ID: [id number] Author: An Ohara APRN.POST HOLE DIGGING MACHINE OPERATOR Service: ? Author Type: Nurse Specialist Type: [...] - PREDNISONE 10 MG TABLET An Ohara APRN.POST HOLE DIGGING MACHINE OPERATOR Medical Decision Making: Problems: Low: Acute, uncomplicated illness or injury Risk: Moderate: Drug management Medical Decision Making Level: 3 - Low [facility] 07-16-2023 History of Presen t illness Narrative [...] 3 - Low documented in this encounter [facility] 07-15-2023 Miscellaneous Notes Patient has been identified [...] you. Karla Gilbert. documented in this encounter [facility] 07-15-2023 Miscellaneous Notes Patient has been identified [...] KENDALL Jean Baptiste. documented in this encounter [facility] 07-01-2023 Miscellaneous Notes Pt calls to report that [facility] advised they did not receive order for nebulizer supplies. RE-faxed order to [phone] as requested. Barbie Ghosh LPN documented in this encounter [facility] 06-28-2023 Miscellaneous Notes Order and Insurance information/face sheet faxed to [facility]. Patient aware. Angela Bowles LPN Printed Rx set to print for nebulizer supplies will also need to send pts insurance info Patient called to stated [facility] does not handle medical supplies. Needs new nebulizer order sent to [facility] in [place]. Patient calls to report that her nebulizer mouth piece broke and is requesting a new nebulizer administration set order be sent to [facility]. Pended with diagnosis of Asthma. Needs quantity. Nadege Muse, RN documented in this encounter [facility] 02-26-2023 Note HNO ID: [id number] Author: Paulina Jolley MD Service: ? Author Type: Physician Type: Progress Notes Filed: 02/26/2023 1:12 PM Note Text: This note was created using Mobile Sorceryriter. Subjective Naman Roa is a 67 year old female. Patient presents with: F/U 6 months SUBJECTIVE: Naman Roa is a 67 year old year [...] . Plans on colonoscopy and EGD in [place] and prefers GI. Discussed providers in town [...] type (HCC) Type O blood, Rh negative [facility] when had blood transfusion September 2014 VITAMIN [...] normal. Component Latest (more content not included)... [facility] 11-19-2022 Miscellaneous Notes Last office visit: [...] Geetha Mittal Pss documented in this encounter [facility] 11-19-2022 Miscellaneous Notes Last office visit: 10/08/22 Next appointment scheduled: 02/26/23 Patient phones requesting refills as follows: Requested Prescriptions Pending Prescriptions Disp Refills fluticasone (FLONASE) 50 mcg/actuation nasal spray 16 g 1 Sig: Use 2 Sprays in each nostril once daily as needed for cold/allergy symptoms. Rinse mouth after use. Please review and advise. Maci Devine LPN documented in this encounter [facility] 10-08-2022 Note HNO ID: [id number] Author: An Ohara APRN.POST HOLE DIGGING MACHINE OPERATOR Service: ? Author Type: Nurse Specialist Type: Progress Notes Filed: 10/08/2022 3:39 PM Note Text: I have communicated my name and active licensure. The patient's identity and physical location were verified at the time of this visit. Either the patient or their legal pharmaceutical service representative has been informed of the risks and benefits of -- and alternatives to -- treatment through a remote evaluation and consents to proceed with the evaluation remotely. Telemedicine Evaluation for COVID-19 Infection MyChart video visit was used for evaluation of this patient. Location of patient: [facility] Naman Roa is a 67 year old female [...] will let us know if not improving. nA Ohara APRN.POST HOLE DIGGING MACHINE OPERATOR 20 min in visit [facility] 10-08-2022 History of Presen t illness Narrative I have communicated my name and active licensure. The patient's identity and physical location were verified at the time of this visit. Either the patient or their legal pharmaceutical service representative has been informed of the risks and benefits of -- and alternatives to -- treatment through a remote evaluation and consents to proceed with the evaluation remotely. [facility]medicine Evaluation for COVID[facility] used for evaluation of this patient. Location of patient: [facility] Naman Roa is a 67 year old female [...] us know if not improving. An Ohara APRN.CNS 20 min in visit documented in this encounter [facility] 09-25-2022 Miscellaneous Notes Patient has been identified [...] Tammy Marin LPN documented in this encounter [facility] 06-26-2022 History of Presen t illness Narrative This note was created using Penumbrater. Subjective Namna Roa is a 67 year old female. Patient presents with: F/U 6 months SUBJECTIVE: Naman Roa is a 67 year old year [...] Take 1 tablet by mouth once daily. [place]-3 Fatty Acids 500 mg cap Take by [...] INFLUENZA SEASONAL QUADRIVALENT HIGH DOSE AGE 65+ [employer] COVID-19 BIVALENT BOOSTER VACCINE, AGE 12+ YR [...] Paulina Jolley MD documented in this encounter [facility] 05-16-2022 Miscellaneous Notes The following approved medication [...] Jenn Mittal LPN documented in this encounter [facility] 05-15-2022 Miscellaneous Notes Patient calling to check that [employer] message came thru for refill. Geetha Mittal Pss documented in this encounter [facility] 04-25-2022 History of Presen t illness Narrative FOLLOW UP VISIT NAME: Naman [facility] NO.: [id number] DATE OF SERVICE: 04/25/2022 : 1955 REFERRING PHYSICIAN: Paulina Jolley MD Naman is status post left breast excisional biopsy [...] Jenifer Sauer MD documented in this encounter [facility] 04-24-2022 Miscellaneous Notes Tried to contact patient to let her know pathology results from procedure done at [facility]. Left breast biopsy via wire localizton - 04/17/2022 Pathology reveals: MICROSCOPIC DIAGNOSIS Left breast, wire-guided lumpectomy: Fibrocystic change with associated microcalcifications. Multifocal usual intraductal hyperplasia without atypia. Adenosis. Focal fat necrosis. Banal calcifications of vessel villa. No evidence of malignancy. However, voice mail without identifiers. documented in this encounter [facility] 03-23-2022 History of Presen t illness Narrative HISTORY AND PHYSICAL Naman Roa 1955 REFERRING PHYSICIAN: Jenifer Sauer MD [...] by mouth daily at bedtime. ([facility]) [place]-3 Fatty Acids 500 mg cap Take by [...] wishes to have the procedure done at [facility]. I have answered all questions to the patient s satisfaction and the patient has no further questions. I have confirmed and edited as necessary, the PFSH and ROS obtained by others. . 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 I spent a total of 24 minutes on the date of the service which included preparing to see the patient with review of any pertinent laboratory studies/radiological imaging/medical records, feil-dq-carl patient care, obtaining oral medical history from the patient in this encounter, performing a medically appropriate examination, counseling and educating the patient/family/caregiver, and ordering and/or scheduling of medications/tests/procedures, and completing appropriate medical documentation. Jenifer Sauer MD documented in this encounter [facility] 03-15-2022 Note HNO ID: [id number] Author: RT Nic(R) Service: ? Author Type: Technologist Type: Progress Notes Filed: 03/15/2022 12:10 PM Note Text: Radiology Service Progress Note PATIENT NAME: Naman Roa DATE OF SERVICE: March 15, 2022 [...] RT Nic(R) March 15, 2022 12:10 PM [facility] 02-22-2022 Miscellaneous Notes Patient has been identified by name and date of : Yes Pending Prescriptions Disp Refills OMEPRAZOLE 20 MG CAPSULE,DELAYED RELEASE 30 capsule 11 Sig: Take 1 capsule by mouth daily before breakfast. 1/2 hr before meal. ANGEL: No RX INSTRUCTIONS: Patient aware RX will be sent to pharmacy. No need to notify patient. Rosangela Pereira documented in this encounter [facility] 02-18-2022 History of Presen t illness Narrative Naman Roa 1955 REFERRING PHYSICIAN: Paulina Jolley MD [...] by mouth daily at bedtime. (Counseling Center) [place]-3 Fatty Acids (FISH OIL) 500 mg cap [...] entered by the nurse and reviewed by sd Nursing Notes: Catie Max LPN 02/16/2022 3:07 [...] the patient. I will refer patient to [facility] imaging center. I told patient [...] to Clinic: The patient is referred to [facility] imaging center. Medical Decision Making: Problems: Moderate: New problem with uncertain prognosis Data: Unique test result(s) reviewed: 1 Risk: Low: Low risk from testing/treatment Medical Decision Making Level: 3 - Low Jenifer Sauer MD documented in this encounter [facility] 02-16-2022 Nurse Note REVIEW OF SYSTEMS: General: [...] Catie Max LPN documented in this encounter [facility] 02-14-2022 History of Presen t illness Narrative Radiology Service Progress Note PATIENT NAME: Naman Roa DATE OF SERVICE: February 14, 2022 [...] 2022 3:56 PM documented in this encounter [facility] 02-14-2022 History of Presen t illness Narrative Radiology Service Progress Note PATIENT NAME: Naman Roa DATE OF SERVICE: February 14, 2022 [...] 2022 2:11 PM documented in this encounter [facility] 01-16-2022 Miscellaneous Notes Called and left a [...] testing. Please advise. documented in this encounter [facility] 01-10-2022 Miscellaneous Notes January 10, 2022 PID: [id number] Naman Roa [address] [address] Dear Ms. Roa, Your recent breast imaging exam on 01/09/2022 showed a possible finding that requires additional imaging studies for a complete evaluation. Most such findings are probably benign (not cancer). If you have a healthcare provider who ordered/prescribed your screening mammogram: Please call [phone] or [phone]: [phone] to schedule an appointment for your additional [...] and reports are kept on file at [facility] as part of your permanent medical record, and are available for your continuing care. Thank you for allowing us to help in meeting your health care needs. Sincerely, Dr. Tony Interpreting Radiologist (Additional imaging) documented in this encounter [facility] 01-05-2022 Miscellaneous Notes Faxed to F Printed order Patient calling asking for new order to be sent to [facility] in [place] for her incontinence supplies. Patient said she gets 4 bags large Attends and 3 bags of wipes per month. Patient said she dribbles constantly. she was not given the phone or fax number. Pending order, needs diagnosis. Please advise documented in this encounter [facility] 12-12-2021 History of Presen t illness Narrative VIRTUAL VISIT PROGRESS NOTE This is a virtual visit using [employer] video visit. It required patient-provider interaction for the medical decision making as documented below. Naman Roa is a 66 year old female [...] by mouth daily at bedtime. (Counseling Center) [place]-3 Fatty Acids (FISH OIL) 500 mg cap [...] up for mammogram, yearly mammogram recommended - [facility] SCREENING 3. Mild intermittent asthma without [...] Paulina Jolley MD documented in this encounter [facility] 10-24-2021 History of Presen t illness Narrative This note was created using [employer]. Subjective Naman Roa is a 66 year old female. Patient presents with: F/U 6 months SUBJECTIVE: Naman Roa is a 66 year old year [...] by mouth daily at bedtime. (Counseling Center) [place]-3 Fatty Acids (FISH OIL) 500 mg cap [...] Paulina Jolley MD documented in this encounter [facility] documented as of this encounter (statuses as of 12/12/2021) [facility] History of Past illness Narrative* Problem Noted Date Resolved Date Hypokalemia 09/21/2019 09/22/2019 Choledocholithiasis 09/18/2019 09/22/2019 Knee pain, bilateral 07/24/2013 02/22/2020 Bilateral shoulder pain 07/24/2013 07/20/20 20 Pain in joint, shoulder region 06/04/2013 0 02/22/2020 Pain in joint, lower leg 06/04/2013 020 documented as of this encounter (statuses as of 01/05/2022) [facility] of Past illness Narrative* Problem Noted Date Resolved Date Hypokalemia 09/21/2019 09/22/2019 Choledocholithiasis 09/18/2019 09/22/2019 Knee pain, bilateral 07/24/2013 02/22/2020 Bilateral shoulder pain 07/24/2013 02/22/20 Pain in joint, shoulder region 06/04/2013 0 02/22/2020 Pain in joint, lower leg 06/04/2013 020 documented as of this encounter (statuses as of 01/12/2022) [facility] of Past illness Narrative* Problem Noted Date Resolved Date Hypokalemia 09/21/2019 09/22/2019 Choledocholithiasis 09/18/2019 09/22/2019 Knee pain, bilateral 07/24/2013 02/22/2020 Bilateral shoulder pain 07/24/2013 02/22/20 20 Pain in joint, shoulder region 06/04/2013 0 02/22/2020 Pain in joint, lower leg 06/04/2013 020 documented as of this encounter (statuses as of 01/15/2022) [facility] of Past illness Narrative* Problem Noted Date Resolved Date Hypokalemia 09/21/2019 09/22/2019 Choledocholithiasis 09/18/2019 09/22/2019 Knee pain, bilateral 07/24/2013 02/22/2020 Bilateral shoulder pain 07/24/2013 02/22/20 20 Pain in joint, shoulder region 06/04/2013 0 02/22/2020 Pain in joint, lower leg 06/04/2013 020 documented as of this encounter (statuses as of 01/16/2022) [facility] of Past illness Narrative* Problem Noted Date Resolved Date Hypokalemia 09/21/2019 09/22/2019 Choledocholithiasis 09/18/2019 09/22/2019 Knee pain, bilateral 07/24/2013 02/22/2020 Bilateral shoulder pain 07/24/2013 02/22/20 20 Pain in joint, shoulder region 06/04/2013 0 02/22/2020 Pain in joint, lower leg 06/04/2013 020 documented as of this encounter (statuses as of 02/15/2022) [facility] of Past illness Narrative* Problem Noted Date Resolved Date Hypokalemia 09/21/2019 09/22/2019 Choledocholithiasis 09/18/2019 09/22/2019 Knee pain, bilateral 07/24/2013 02/22/2020 Bilateral shoulder pain 07/24/2013 02/22/20 Pain in joint, shoulder region 06/04/2013 0 02/22/2020 Pain in joint, lower leg 06/04/2013 020 documented as of this encounter (statuses as of 02/15/2022) [facility] of Past illness Narrative* Problem Noted Date Resolved Date Hypokalemia 09/21/2019 09/22/2019 Choledocholithiasis 09/18/2019 09/22/2019 Knee pain, bilateral 07/24/2013 02/22/2020 Bilateral shoulder pain 07/24/2013 02/22/20 20 Pain in joint, shoulder region 06/04/2013 0 02/22/2020 Pain in joint, lower leg 06/04/2013 020 documented as of this encounter (statuses as of 02/18/2022) [facility] of Past illness Narrative* Problem Noted Date Resolved Date Hypokalemia 09/21/2019 09/22/2019 Choledocholithiasis 09/18/2019 09/22/2019 Knee pain, bilateral 07/24/2013 02/22/2020 Bilateral shoulder pain 07/24/2013 02/22/20 Pain in joint, shoulder region 06/04/2013 0 02/22/2020 Pain in joint, lower leg 06/04/2013 020 documented as of this encounter (statuses as of 02/22/2022) [facility] of Past illness Narrative* Problem Noted Date Resolved Date Hypokalemia 09/21/2019 09/22/2019 Choledocholithiasis 09/18/2019 09/22/2019 Knee pain, bilateral 07/24/2013 02/22/2020 Bilateral shoulder pain 07/24/2013 02/22/20 Pain in joint, shoulder region 06/04/2013 0 02/22/2020 Pain in joint, lower leg 06/04/2013 020 documented as of this encounter (statuses as of 03/24/2022) [facility] of Past illness Narrative* Problem Noted Date Resolved Date Hypokalemia 09/21/2019 09/22/2019 Choledocholithiasis 09/18/2019 09/22/2019 Knee pain, bilateral 07/24/2013 02/22/2020 Bilateral shoulder pain 07/24/2013 02/22/20 Pain in joint, shoulder region 06/04/2013 0 02/22/2020 Pain in joint, lower leg 06/04/2013 020 documented as of this encounter (statuses as of 04/24/2022) [facility] of Past illness Narrative* Problem Noted Date Resolved Date Hypokalemia 09/21/2019 09/22/2019 Choledocholithiasis 09/18/2019 09/22/2019 Knee pain, bilateral 07/24/2013 02/22/2020 Bilateral shoulder pain 07/24/2013 02/22/20 Pain in joint, shoulder region 06/04/2013 0 02/22/2020 Pain in joint, lower leg 06/04/2013 020 documented as of this encounter (statuses as of 04/28/2022) [facility] of Past illness Narrative* Problem Noted Date Resolved Date Hypokalemia 09/21/2019 09/22/2019 Choledocholithiasis 09/18/2019 09/22/2019 Knee pain, bilateral 07/24/2013 02/22/2020 Bilateral shoulder pain 07/24/2013 02/22/20 Pain in joint, shoulder region 06/04/2013 0 02/22/2020 Pain in joint, lower leg 06/04/2013 020 documented as of this encounter (statuses as of 05/15/2022) [facility] of Past illness Narrative* Problem Noted Date Resolved Date Hypokalemia 09/21/2019 09/22/2019 Choledocholithiasis 09/18/2019 09/22/2019 Knee pain, bilateral 07/24/2013 02/22/2020 Bilateral shoulder pain 07/24/2013 02/22/20 Pain in joint, shoulder region 06/04/2013 0 02/22/2020 Pain in joint, lower leg 06/04/2013 020 documented as of this encounter (statuses as of 05/16/2022) [facility] of Past illness Narrative* Problem Noted Date Resolved Date Hypokalemia 09/21/2019 09/22/2019 Choledocholithiasis 09/18/2019 09/22/2019 Knee pain, bilateral 07/24/2013 02/22/2020 Bilateral shoulder pain 07/24/2013 02/22/20 Pain in joint, shoulder region 06/04/2013 0 02/22/2020 Pain in joint, lower leg 06/04/2013 020 documented as of this encounter (statuses as of 08/04/2022) [facility] of Past illness Narrative* Problem Noted Date Resolved Date Hypokalemia 09/21/2019 09/22/2019 Choledocholithiasis 09/18/2019 09/22/2019 Knee pain, bilateral 07/24/2013 02/22/2020 Bilateral shoulder pain 07/24/2013 02/22/20 Pain in joint, shoulder region 06/04/2013 0 02/22/2020 Pain in joint, lower leg 06/04/2013 020 documented as of this encounter (statuses as of 09/25/2022) [facility] of Past illness Narrative* Problem Noted Date Resolved Date Hypokalemia 09/21/2019 09/22/2019 Choledocholithiasis 09/18/2019 09/22/2019 Knee pain, bilateral 07/24/2013 02/22/2020 Bilateral shoulder pain 07/24/2013 02/22/20 Pain in joint, shoulder region 06/04/2013 0 02/22/2020 Pain in joint, lower leg 06/04/2013 020 documented as of this encounter (statuses as of 10/09/2022) [facility] of Past illness Narrative* Problem Noted Date Resolved Date Hypokalemia 09/21/2019 09/22/2019 Choledocholithiasis 09/18/2019 09/22/2019 Knee pain, bilateral 07/24/2013 02/22/2020 Bilateral shoulder pain 07/24/2013 02/22/20 Pain in joint, shoulder region 06/04/2013 0 02/22/2020 Pain in joint, lower leg 06/04/2013 020 documented as of this encounter (statuses as of 11/19/2022) [facility] of Past illness Narrative* Problem Noted Date Diagnosed Date Resolved Date Hypokalemia 09/21/2019 09/22/2019 Choledocholithiasis 09/18/2019 09/22/19 20 Knee pain, bilateral 07/24/2013 020 Bilateral shoulder pain 07/24/201302/03 Pain in joint, shoulder region 06/04/2013 02/22/2020 Pain in joint, lower leg 06/04/2013 documented as of this encounter (statuses as of 05/18/2023) [facility] History of Past illness Narrative* Problem Noted Date Diagnosed Date Resolved Date Hypokalemia 09/21/2019 09/22/2019 Choledocholithiasis 09/18/2019 09/22/19 20 Knee pain, bilateral 07/24/2013 020 Bilateral shoulder pain 07/24/201302/03 Pain in joint, shoulder region 06/04/2013 02/22/2020 Pain in joint, lower leg 06/04/2013 documented as of this encounter (statuses as of 06/09/2023) [facility] History of Past illness Narrative* Problem Noted Date Diagnosed Date Resolved Date Hypokalemia 09/21/2019 09/22/2019 Choledocholithiasis 09/18/2019 09/22/19 20 Knee pain, bilateral 07/24/2013 020 Bilateral shoulder pain 07/24/201302/03 Pain in joint, shoulder region 06/04/2013 02/22/2020 Pain in joint, lower leg 06/04/2013 documented as of this encounter (statuses as of 06/28/2023) [facility] of Past illness Narrative* Problem Noted Date Diagnosed Date Resolved Date Hypokalemia 09/21/2019 09/22/2019 Choledocholithiasis 09/18/2019 09/22/19 20 Knee pain, bilateral 07/24/2013 020 Bilateral shoulder pain 07/24/201302/03 Pain in joint, shoulder region 06/04/2013 02/22/2020 Pain in joint, lower leg 06/04/2013 documented as of this encounter (statuses as of 07/02/2023) [facility] History of Past illness Narrative* Problem Noted Date Diagnosed Date Resolved Date Hypokalemia 09/21/2019 09/22/2019 Choledocholithiasis 09/18/2019 09/22/19 Knee pain, bilateral 07/24/2013 020 Bilateral shoulder pain 07/24/201302/03 Pain in joint, shoulder region 06/04/2013 02/22/2020 Pain in joint, lower leg 06/04/2013 documented as of this encounter (statuses as of 07/15/2023) [facility] History of Past illness Narrative* Problem Noted Date Diagnosed Date Resolved Date Hypokalemia 09/21/2019 09/22/2019 Choledocholithiasis 09/18/2019 09/22/19 20 Knee pain, bilateral 07/24/2013 020 Bilateral shoulder pain 07/24/201302/03 Pain in joint, shoulder region 06/04/2013 02/22/2020 Pain in joint, lower leg 06/04/2013 documented as of this encounter (statuses as of 07/16/2023) [facility] of Past illness Narrative* Problem Noted Date Diagnosed Date Resolved Date Hypokalemia 09/21/2019 09/22/2019 Choledocholithiasis 09/18/2019 09/22/19 20 Knee pain, bilateral 07/24/2013 020 Bilateral shoulder pain 07/24/201302/03 Pain in joint, shoulder region 06/04/2013 02/22/2020 Pain in joint, lower leg 06/04/2013 documented as of this encounter (statuses as of 07/17/2023) [place] [address]-17-2020 History of Past illness Narrative* Problem Noted Date Diagnosed Date Resolved Date Hypokalemia 09/21/2019 09/22/2019 Choledocholithiasis 09/18/2019 09/22/19 20 Knee pain, bilateral 07/24/2013 020 Bilateral shoulder pain 07/24/201302/03 Pain in joint, shoulder region 06/04/2013 02/22/2020 Pain in joint, lower leg 06/04/2013 documented as of this encounter (statuses as of 08/05/2023) [facility] of Past illness Narrative* Problem Noted Date Diagnosed Date Resolved Date Hypokalemia 09/21/2019 09/22/2019 Choledocholithiasis 09/18/2019 09/22/19 20 Knee pain, bilateral 07/24/2013 020 Bilateral shoulder pain 07/24/201302/03 Pain in joint, shoulder region 06/04/2013 02/22/2020 Pain in joint, lower leg 06/04/2013 documented as of this encounter (statuses as of 08/05/2023) [facility] of Past illness Narrative* Problem Noted Date Diagnosed Date Resolved Date Hypokalemia 09/21/2019 09/22/2019 Choledocholithiasis 09/18/2019 09/22/19 20 Knee pain, bilateral 07/24/2013 020 Bilateral shoulder pain 07/24/201302/03 Pain in joint, shoulder region 06/04/2013 02/22/2020 Pain in joint, lower leg 06/04/2013 documented as of this encounter (statuses as of 09/12/2023) [facility] History of Past illness Narrative* Problem Noted Date Diagnosed Date Resolved Date Hypokalemia 09/21/2019 09/22/2019 Choledocholithiasis 09/18/2019 09/22/19 20 Knee pain, bilateral 07/24/2013 020 Bilateral shoulder pain 07/24/201302/03 Pain in joint, shoulder region 06/04/2013 02/22/2020 Pain in joint, lower leg 06/04/2013 documented as of this encounter (statuses as of 09/13/2023) [facility] History of Past illness Narrative* Problem Noted Date Diagnosed Date Resolved Date Hypokalemia 09/21/2019 09/22/2019 Choledocholithiasis 09/18/2019 09/22/19 20 Knee pain, bilateral 07/24/2013 020 Bilateral shoulder pain 07/24/201302/03 Pain in joint, shoulder region 06/04/2013 02/22/2020 Pain in joint, lower leg 06/04/2013 documented as of this encounter (statuses as of 09/16/2023) [facility] History of Past illness Narrative* Problem Noted Date Diagnosed Date Resolved Date Hypokalemia 09/21/2019 09/22/2019 Choledocholithiasis 09/18/2019 09/22/19 20 Knee pain, bilateral 07/24/2013 020 Bilateral shoulder pain 07/24/201302/03 Pain in joint, shoulder region 06/04/2013 02/22/2020 Pain in joint, lower leg 06/04/2013 documented as of this encounter (statuses as of 09/17/2023) [facility] History of Past illness Narrative* Problem Noted Date Diagnosed Date Resolved Date Hypokalemia 09/21/2019 09/22/2019 Choledocholithiasis 09/18/2019 09/22/19 20 Knee pain, bilateral 07/24/2013 020 Bilateral shoulder pain 07/24/201302/03 Pain in joint, shoulder region 06/04/2013 02/22/2020 Pain in joint, lower leg 06/04/2013 documented as of this encounter (statuses as of 09/23/2023) [facility] Diagnosis Exacerbation of asthma, unspecified asthma severity, unspecified whether persistent- Primary Breast cancer screening by mammogram Mild intermittent asthma without complication Unspecified asthma Seasonal allergic rhinitis, unspecified trigger Mixed hyperlipidemia [facility] Continuous leakage of urine- Primary Continuous leakage DDD (degenerative disc disease), lumbosacral Degeneration of lumbar or lumbosacral intervertebral disc Back pain of lumbar region with sciatica [facility] Vitamin D deficiency- Primary Unspecified vitamin D deficiency Mixed hyperlipidemia Impaired glucose metabolism Impaired glucose tolerance test Primary localized osteoarthrosis of shoulder region, left S/p total knee replacement, 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 Fibromyalgia Mylagia and myositis, unspecified Encounter for long-term current use of medication [facility] Diagnosis Abnormal mammogram- Primary Abnormal mammogram, unspecified [facility] Diagnosis Abnormal mammogram Abnormal mammogram, unspecified [facility] Diagnosis Abnormal mammogram Abnormal mammogram, unspecified [facility] Diagnosis Abnormal ultrasound of breast- Primary Other (abnormal) findings on radiological examination of breast [facility] Diagnosis Gastroesophageal reflux disease without esophagitis Esophageal reflux [facility] Diagnosis 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 [facility] Diagnosis Status post left breast biopsy- Primary Other postprocedural status [facility] Diagnosis Chronic bilateral low back pain with bilateral sciatica Fibromyalgia Mylagia and myositis, unspecified [facility] Diagnosis Impaired glucose metabolism- Primary Impaired glucose tolerance test Vitamin D deficiency Unspecified vitamin D deficiency Mixed hyperlipidemia Seasonal allergic rhinitis, unspecified trigger Contusion of right knee, subsequent encounter Encounter for immunization Need for other specified prophylactic vaccination against single bacterial disease Breast cancer screening by mammogram Encounter for long-term current use of medication Schizophrenia, unspecified type ([facility]) [facility] this [facility] Diagnosis Exacerbation of asthma, unspecified asthma severity, unspecified whether persistent- Primary Acute lower respiratory infection Other diseases of respiratory system, not elsewhere classified [facility]* Diagnosis Seasonal allergic rhinitis, unspecified trigger [facility] Diagnosis Breast cancer screening by mammogram [facility] Diagnosis Asthma, unspecified asthma severity, unspecified whether complicated, unspecified whether persistent- Primary [facility] Diagnosis Seasonal allergic rhinitis, unspecified trigger [facility] Exacerbation of asthma, unspecified asthma severity, unspecified whether persistent- Primary Mild intermittent asthma without complication Unspecified asthma [facility] Diagnosis Chronic bilateral low back pain with bilateral sciatica Fibromyalgia Mylagia and myositis, unspecified [facility] Diagnosis Chronic bilateral low back pain with bilateral sciatica Fibromyalgia Mylagia and myositis, unspecified documented in this encounter [facility] note* Diagnosis Mild intermittent asthma without complication- [...] use of medication documented in this encounter [facility] note* Diagnosis COVID-19- Primary Mild intermittent asthma with acute exacerbation Unspecified asthma, with exacerbation documented in this encounter [facility] for referral (narrative)* Outpatient Procedure (Routine) - Pending Review Specialty Diagnoses / Procedures Referred By Alana guardado Referred To [facility] Diagnoses Mild intermittent asthma without complication Procedures SPIROMETRY - BASELINE AND POST DILATOR BRNCDILAT RSPSE SPMTRY PRE&POST-BRNCDILAT Paulina Gaitan MD [address] [place] [address] Respiratory [place] [address] [place] [address] Referral ID Status Reason Start Date Expiration Date Visits Requested Visits Authorized [id number] Pending Review Auto-Generat ed Referral 12/12/2021 01/11/2023 1 1 * Consult, Test, Treat (Routine) - Pending Review Specialty Diagnoses / Procedures Referred By Alana guardado Referred To Contact [facility] Diagnoses Breast cancer screening by mammogram Procedures SEE SCREENING SCREENING MAMMOGRAPHY BI 2-VIEW BREAST INC CAD Paulina Jolley MD [address] [place] [address] [facility] [address] [place] [address] Referral ID Status Reason Start Date Expiration Date Visits Requested Visits Authorized [id number] Pending Review Auto-Generat ed Referral 12/12/2021 03/12/2022 3 3 [facility] for referral (narrative)* Diagnostic Procedure Only (Routine) - Authorized Specialty Diagnoses / Procedures Referred By Alana guardado Referred To Contact [facility] Diagnoses Abnormal mammogram Procedures US BREAST LTD LT US BREAST UNI REAL TIME WITH IMAGE LIMITED Paulina Jolley MD [address] [place] [address] [facility] [address] [place] [address] Referral ID Status Reason Start Date Expiration Date Visits Requested Visits Authorized [id number] Authorized Auto-Generat ed Referral 01/15/2022 02/14/2023 1 1 * Diagnostic Procedure Only (Routine) - Authorized Specialty Diagnoses / Procedures Referred By Alana guardado Referred To Contact [facility] Diagnoses Abnormal mammogram Procedures SEE DIAGNOSTIC LT DIAGNOSTIC MAMMOGRAPHY COMPUTER-AIDED DETCJ UNI Paulina Jolley MD [address] [place] [address] [facility] [address] [place] [address] Referral ID Status Reason Start Date Expiration Date Visits Requested Visits Authorized [id number] Authorized Auto-Generat ed Referral 01/15/2022 02/14/2023 1 1 [facility] for referral (narrative)* Diagnostic Procedure Only (Routine) - Closed Specialty Diagnoses / Procedures Referred By Alana guardado Referred To Contact [facility] Diagnoses Abnormal mammogram Procedures US BREAST LTD LT US BREAST UNI REAL TIME WITH IMAGE LIMITED Paulina Jolley MD [address] [place] [address] [facility] [address] [place] [address] Referral ID Status Reason Start Date Expiration Date V isits Requested Visits Authorized [id number] Closed Auto-Generate d Referral 01/15/2022 02/14/2023 1 1 [facility] for referral (narrative)* Diagnostic Procedure Only (Routine) - Pending Review Specialty Diagnoses / Procedures Referred By Alana t Referred To Contact [facility] Diagnoses Abnormal ultrasound of breast Procedures US BIOPSY BREAST LT BX BREAST W/DEVICE 1ST LESION ULTRASOUND Jenifer Dunne MD [address] [place] [address] [facility] [address] [place] [address] Referral ID Status Reason Start Date Expiration Date Visits Requested Visits Authorized [id number] Pending Review Auto-Generat ed Referral 02/16/2022 03/18/2023 1 1 T [facility] for referral (narrative)* Diagnostic Procedure Only (Routine) - Closed Specialty Diagnoses / Procedures Referred By Alana t Referred To Contact [facility] Diagnoses Breast cancer screening by mammogram Procedures SEE SCREENING W EDUARDO SCREENING DIGITAL BREAST TOMOSYNTHESIS BI SCREENING MAMMOGRAPHY BI 2-VIEW BREAST INC CAD Paulina Jolley MD [address] [place] [address] [facility] [address] [place] [address] Referral ID Status Reason Start Date Expiration Date V isits Requested Visits Authorized [id number] Closed Auto-Generate d Referral 06/26/2022 07/26/2023 1 1 [facility] for referral (narrative)* Diagnostic Procedure Only (Routine) - Authorized Specialty Diagnoses / Procedures Referred By Alana t Referred To Contact [facility] Diagnoses Breast cancer screening by mammogram Procedures SEE SCREENING W EDUARDO SCREENING DIGITAL BREAST TOMOSYNTHESIS BI SCREENING MAMMOGRAPHY BI 2-VIEW BREAST INC CAD Paulina Jolley MD [address] [place] [address] [facility] [address] [place] [address] Referral ID Status Reason Start Date Expiration Date Visits Requested Visits Authorized [id number] Authorized Auto-Generat ed Referral 09/04/2023 10/03/2024 1 1 * Transition of Care (Routine) - Ref Not Required Specialty Diagnoses / Procedures Referred By Alana guardado Referred To Contact Gastroenterology Diagnoses Colon cancer screening Gastroesophageal reflux disease without esophagitis Procedures CONSULT TO GASTROENTEROLOGY Paulina Jolley MD [address] [place] [address] Josh Jerez, DO [address] [address] Referral ID Status Reason Start Date Expiration Date Visits Requested Visits Authorized [id number] Ref Not Required PCP Requested Referral 09/04/2023 09/03/2024 1 1 [facility] for visit Narrative* Diagnostic Procedure Only (Routine) - Closed Specialty Diagnoses / Procedures [facility] Referred To Contact [facility] Diagnoses Abnormal mammogram Procedures SEE DIAGNOSTIC LT DIAGNOSTIC MAMMOGRAPHY COMPUTER-AIDED DETCJ UNI Paulina Jolley MD [address] [place] [address] [facility] [address] [place] [address] Referral ID Status Reason Start Date Expiration Date V isits Requested Visits Authorized [id number] Closed Auto-Generate d Referral 01/15/2022 02/14/2023 [facility] Procedure Only (Routine) - Closed Specialty Diagnoses / Procedures Referred By Alana t Referred To Contact [facility] Diagnoses Breast cancer screening by mammogram Procedures SEE SCREENING W EDUARDO SCREENING DIGITAL BREAST TOMOSYNTHESIS BI SCREENING MAMMOGRAPHY BI 2-VIEW BREAST INC Paulina Jason MD [address] [place] [address] [facility] [address] [place] [address] Referral ID Status Reason Start Date Expiration Date V isits Requested Visits Authorized [id number] Closed Auto-Generate d Referral 06/26/2022 07/26/2023 1 1 [facility] Summary Purpose Family History No Family History Records FoundNo Family History Records FoundNo Family History Records Found Advance Directives No Advanced Directives Records FoundDocuments on File Type Date Recorded 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 Advance Directive(s) 09/19/2019 7:41 AM Documents on File Type Date Recorded 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 Advance Directive(s) 09/19/2019 7:41 AM Reason for Referral Specialty Diagnoses / Procedures Referred By Contac t Referred To Contact [facility] Diagnoses Breast cancer screening by mammogram Procedures SEE SCREENING SCREENING MAMMOGRAPHY BI 2-VIEW BREAST INC Paulina Jason MD [address] [place] [address] [facility] [address] [place] [address] Referral ID Status Reason Start Date Expiration Date Visits Requested Visits Authorized [id number] Pending Review Auto-Generat ed Referral 2 09/24/2022 3 1 Specialty Diagnoses / Procedures Referred By Contbert t Referred To Contact [facility] Diagnoses Breast cancer screening by mammogram Procedures SEE SCREENING W EDUARDO SCREENING DIGITAL BREAST TOMOSYNTHESIS BI SCREENING MAMMOGRAPHY BI 2-VIEW BREAST INC Paulina Jason MD [address] [place] [address] [facility] [address] [place] [address] Referral ID Status Reason Start Date Expiration Date Visits Requested Visits Authorized [id number] Pending Review Auto-Generat ed Referral 2 07/26/2023 1 1 Additional Source Comments INFORMATION SOURCE (unrecogn ized section and content) DATE CREATED AUTHOR AUTHOR'S ORGANNAN ATION 03/20/2022 [facility] DATE CREATED AUTHOR AUTHOR'S ORGANIZ ATION 09/24/2023 [facility] Source Comments (unrecognize d section and content) In the event this informatio n is protected by the Federal Confidentiality of Alcohol and Drug Abuse Patient Records regulations: The Federal rules restrict any use of the information to criminally investigate or prosecute any alcohol or drug abuse patient.[facility] Center[facility] the event this information is protected by the Federal Confidentiality of Alcohol and Drug Abuse Patient Records regulations: The Federal rules restrict any use of the information to criminally investigate or prosecute any alcohol or drug abuse patient.[facility] CenterIn the event this information is protected by the Federal Confidentiality of Alcohol and Drug Abuse Patient Records regulations: The Federal rules restrict any use of the information to criminally investigate or prosecute any alcohol or drug abuse patient.[facility] CenterIn the event this information is protected by the Federal Confidentiality of Alcohol and Drug Abuse Patient Records regulations: The Federal rules restrict any use of the information to criminally investigate or prosecute any alcohol or drug abuse patient.[facility] CenterIn the event this information is protected by the Federal Confidentiality of Alcohol and Drug Abuse Patient Records regulations: The Federal rules restrict any use of the information to criminally investigate or prosecute any alcohol or drug abuse patient.[facility] CenterIn the event this information is protected by the Federal Confidentiality of Alcohol and Drug Abuse Patient Records regulations: The Federal rules restrict any use of the information to criminally investigate or prosecute any alcohol or drug abuse patient.[facility] CenterIn the event this information is protected by the Federal Confidentiality of Alcohol and Drug Abuse Patient Records regulations: The Federal rules restrict any use of the information to criminally investigate or prosecute any alcohol or drug abuse patient.[facility] CenterIn the event this information is protected by the Federal Confidentiality of Alcohol and Drug Abuse Patient Records regulations: The Federal rules restrict any use of the information to criminally investigate or prosecute any alcohol or drug abuse patient.[facility] CenterIn the event this information is protected by the Federal Confidentiality of Alcohol and Drug Abuse Patient Records regulations: The Federal rules restrict any use of the information to criminally investigate or prosecute any alcohol or drug abuse patient.[facility] CenterIn the event this information is protected by the Federal Confidentiality of Alcohol and Drug Abuse Patient Records regulations: The Federal rules restrict any use of the information to criminally investigate or prosecute any alcohol or drug abuse patient.[facility] CenterIn the event this information is protected by the Federal Confidentiality of Alcohol and Drug Abuse Patient Records regulations: The Federal rules restrict any use of the information to criminally investigate or prosecute any alcohol or drug abuse patient.[facility] CenterIn the event this information is protected by the Federal Confidentiality of Alcohol and Drug Abuse Patient Records regulations: The Federal rules restrict any use of the information to criminally investigate or prosecute any alcohol or drug abuse patient.[facility] CenterIn the event this information is protected by the Federal Confidentiality of Alcohol and Drug Abuse Patient Records regulations: The Federal rules restrict any use of the information to criminally investigate or prosecute any alcohol or drug abuse patient.[facility] CenterIn the event this information is protected by the Federal Confidentiality of Alcohol and Drug Abuse Patient Records regulations: The Federal rules restrict any use of the information to criminally investigate or prosecute any alcohol or drug abuse patient.[facility] CenterIn the event this information is protected by the Federal Confidentiality of Alcohol and Drug Abuse Patient Records regulations: The Federal rules restrict any use of the information to criminally investigate or prosecute any alcohol or drug abuse patient.[facility] CenterIn the event this information is protected by the Federal Confidentiality of Alcohol and Drug Abuse Patient Records regulations: The Federal rules restrict any use of the information to criminally investigate or prosecute any alcohol or drug abuse patient.[facility] CenterIn the event this information is protected by the Federal Confidentiality of Alcohol and Drug Abuse Patient Records regulations: The Federal rules restrict any use of the information to criminally investigate or prosecute any alcohol or drug abuse patient.[facility] CenterIn the event this information is protected by the Federal Confidentiality of Alcohol and Drug Abuse Patient Records regulations: The Federal rules restrict any use of the information to criminally investigate or prosecute any alcohol or drug abuse patient.[facility] CenterIn the event this information is protected by the Federal Confidentiality of Alcohol and Drug Abuse Patient Records regulations: The Federal rules restrict any use of the information to criminally investigate or prosecute any alcohol or drug abuse patient.[facility] CenterIn the event this information is protected by the Federal Confidentiality of Alcohol and Drug Abuse Patient Records regulations: The Federal rules restrict any use of the information to criminally investigate or prosecute any alcohol or drug abuse patient.[facility] CenterIn the event this information is protected by the Federal Confidentiality of Alcohol and Drug Abuse Patient Records regulations: The Federal rules restrict any use of the information to criminally investigate or prosecute any alcohol or drug abuse patient.[facility] CenterIn the event this information is protected by the Federal Confidentiality of Alcohol and Drug Abuse Patient Records regulations: The Federal rules restrict any use of the information to criminally investigate or prosecute any alcohol or drug abuse patient.[facility] CenterIn the event this information is protected by the Federal Confidentiality of Alcohol and Drug Abuse Patient Records regulations: The Federal rules restrict any use of the information to criminally investigate or prosecute any alcohol or drug abuse patient.[facility] CenterIn the event this information is protected by the Federal Confidentiality of Alcohol and Drug Abuse Patient Records regulations: The Federal rules restrict any use of the information to criminally investigate or prosecute any alcohol or drug abuse patient.[facility] CenterIn the event this information is protected by the Federal Confidentiality of Alcohol and Drug Abuse Patient Records regulations: The Federal rules restrict any use of the information to criminally investigate or prosecute any alcohol or drug abuse patient.[facility] CenterIn the event this information is protected by the Federal Confidentiality of Alcohol and Drug Abuse Patient Records regulations: The Federal rules restrict any use of the information to criminally investigate or prosecute any alcohol or drug abuse patient.[facility] CenterIn the event this information is protected by the Federal Confidentiality of Alcohol and Drug Abuse Patient Records regulations: The Federal rules restrict any use of the information to criminally investigate or prosecute any alcohol or drug abuse patient.[facility] CenterIn the event this information is protected by the Federal Confidentiality of Alcohol and Drug Abuse Patient Records regulations: The Federal rules restrict any use of the information to criminally investigate or prosecute any alcohol or drug abuse patient.[facility] CenterIn the event this information is protected by the Federal Confidentiality of Alcohol and Drug Abuse Patient Records regulations: The Federal rules restrict any use of the information to criminally investigate or prosecute any alcohol or drug abuse patient.[facility] CenterIn the event this information is protected by the Federal Confidentiality of Alcohol and Drug Abuse Patient Records regulations: The Federal rules restrict any use of the information to criminally investigate or prosecute any alcohol or drug abuse patient.[facility] CenterIn the event this information is protected by the Federal Confidentiality of Alcohol and Drug Abuse Patient Records regulations: The Federal rules restrict any use of the information to criminally investigate or prosecute any alcohol or drug abuse patient.[facility] CenterIn the event this information is protected by the Federal Confidentiality of Alcohol and Drug Abuse Patient Records regulations: The Federal rules restrict any use of the information to criminally investigate or prosecute any alcohol or drug abuse patient.[facility] CenterIn the event this information is protected by the Federal Confidentiality of Alcohol and Drug Abuse Patient Records regulations: The Federal rules restrict any use of the information to criminally investigate or prosecute any alcohol or drug abuse patient.[facility] Reason for Visit (unrecogniz ed section and content) Reason Comments Orders Reason Comments F/U 6 months Reason Onset Date Comments Orders Radiology Mammogram 01/15/2022 [facility] Reason Comments Radiology US Specialty Diagnoses / Procedures Referred By Ellaac t Referred To Contact [facility] Diagnoses Abnormal mammogram Procedures US BREAST LTD LT US BREAST UNI REAL TIME WITH IMAGE LIMITED Paulina Jolley MD [address] [place] [address] [facility] [address] [place] [address] Referral ID Status Reason Start Date Expiration Date V isits Requested Visits Authorized [id number] Closed Auto-Generate d Referral 01/15/2022 02/14/2023 1 [...] 6 months Breast Problem 06/26/2022 Mammogram at [facility] Reason Comments Med Change [...] new nebulizer Breast Problem 09/04/2023 Mammogram at [facility] [place] Reason Comments Sleep study order Reason Comments Cough Shortness of Breath Reason Comments Patient Update Reason Comments ED Follow-up Covid +, pt feeling much better Care Teams (unrecognized sec tion and content) Director Of Reimbursement Relationship Specialty Start Date End Date Paulina Jolley MD [address] [place] [address] PCP - General 03/28/10 Director Of Reimbursement Relationship Specialty Start Date End Date Paulina Jolley MD [address] [place] [address] PCP - General 03/28/10 Director Of Reimbursement Relationship Specialty Start Date End Date Paulina Jolley MD [address] [place] [address] PCP - General 03/28/10 Director Of Reimbursement Relationship Specialty Start Date End Date Paulina Jolley MD [address] [place] [address] PCP - General 03/28/10 Director Of Reimbursement Relationship Specialty Start Date End Date Paulina Jolley MD [address] [place] [address] PCP - General 03/28/10 Director Of Reimbursement Relationship Specialty [place] [address] [place] [address], [place] [address] PCP - General 03/28/10 Director Of Reimbursement Relationship Specialty Start Date End Date Paulina Jolley MD [address] [place] [address], [place] [address] PCP - General 03/28/10 Director Of Reimbursement Relationship Specialty Start Date End Date Paulina Jolley MD [address] [place] [address], [place] [address] PCP - General 03/28/10 Director Of Reimbursement Relationship Specialty Start Date End Date Paulina Jolley MD [address] [place] [address], [place] [address] PCP - General 03/28/10 Director Of Reimbursement Relationship Specialty Start Date End Date Paulina Jolley MD [address] [place] [address], [place] [address] PCP - General 03/28/10 Director Of Reimbursement Relationship Specialty Start Date End Date Paulina Jolley MD [address] [place] [address], [place] [address] PCP - General 03/28/10 Director Of Reimbursement Relationship Specialty Start Date End Date Paulina Jolley MD [address] [place] [address], [place] [address] PCP - General 03/28/10 Director Of Reimbursement Relationship Specialty Start Date End Date Paulina Jolley MD [address] [place] [address], [place] [address] PCP - General 03/28/10 Director Of Reimbursement Relationship Specialty Start Date End Date Paulina Jolley MD [address] [place] [address] PCP - General 03/28/10 Director Of Reimbursement Relationship Specialty Start Date End Date Paulina Jolley MD [address] [place] [address] PCP - General 03/28/10 Director Of Reimbursement Relationship Specialty Start Date End Date Paulina Jolley MD [address] [place] [address] PCP - General 03/28/10 Director Of Reimbursement Relationship Specialty Start Date End Date Paulina Jolley MD [address] [place] [address] PCP - General 03/28/10 Director Of Reimbursement Relationship Specialty Start Date End Date Paulina Jolley MD [address] [place] [address] PCP - General 03/28/10 Director Of Reimbursement Relationship Specialty Start Date End Date Paulina Jolley MD [address] [place] [address] PCP - General 03/28/10 Director Of Reimbursement Relationship Specialty Start Date End Date Paulina Jolley MD [address] [place] [address] PCP - General 03/28/10 Director Of Reimbursement Relationship Specialty Start Date End Date Paulina Jolley MD [address] [place] [address] PCP - General 03/28/10 Director Of Reimbursement Relationship Specialty Start Date End Date Paulina Jolley MD [address] [place] [address] PCP - General 03/28/10 Director Of Reimbursement Relationship Specialty Start Date End Date Paulina Jolley MD [address] [place] [address] PCP - General 03/28/10 FOR RECORDS PERTAINING [...] BE BASED ON THE PRIMARY CLINICAL RECORDS. [facility] [employer] [facility]. provides no warranty or guarantee of the accuracy or completeness of information in this document.
== END | disposition home or self-care (01) ==
LOC: SL 19:44
PROVIDERS: PCP Internal Medicine; Referring Provider Internal Medicine; Visit Provider Internal Medicine
DX: G47.33 Obstructive sleep apnea (adult) (pediatric) (principal)
CPT/HCPCS: 95810

== ENCOUNTER → 2023-10-30 | Outpatient (CLI) | payer MEDICARE, MEDICAID, SELFPAY ==
[2023-10-30] MEDS: Zolpidem Tartrate 5 MG Tablet PO (21:35)
== END | disposition home or self-care (01) ==
LOC: SL 19:45
PROVIDERS: PCP Internal Medicine; Referring Provider Clinical Nurse Specialist; Visit Provider Clinical Nurse Specialist
DX: G47.33 Obstructive sleep apnea (adult) (pediatric) (principal); R40.0 Somnolence; R06.83 Snoring
CPT/HCPCS: 95810

== ENCOUNTER → 2023-12-11 | Outpatient (CLI) | payer MEDICARE, MEDICAID, SELFPAY ==
[2023-12-11] MEDS: Zolpidem Tartrate 5 MG Tablet PO (21:22)
== END | disposition home or self-care (01) ==
LOC: SL 19:42
PROVIDERS: PCP Internal Medicine; Referring Provider Clinical Nurse Specialist; Visit Provider Clinical Nurse Specialist
DX: G47.33 Obstructive sleep apnea (adult) (pediatric) (principal)
CPT/HCPCS: 95811